=== PATIENT | female | born 1990 | race Hispanic/Latino ===

== ENCOUNTER 2022-03-05 12:27 | Emergency (ER) | payer OTHER ==
--- OUTSIDE RECORDS SUMMARY | 2022-03-05 12:37 | XMS REPORT | Continuity of Care Document ---
:1990 Author Organization [facility] t Address [address] [place] [address] Care Team Providers Name Role Phone PCP, PATIENT DOES NOT HAVE A Primary Care Physician Unavaila catrachito Pacheco_Jer Attending Clinician Unavailable Charlette_Mi Attending Clinician Unavailable Caryn GRAHAM, Anabel De La Cruz Attending Clinician Jaqueline Adame LVN Attending Clinician Unavailable Christine Noel Attending Clinician Deyanira Terry MD Attending Clinician Phuc BEARDEN, Daniela Whitaker Attending Clinician [phone] Johanna Murguia MD Attending Clinician AJAY CASSIDY Attending Clinician Unavailable Ajay Cassidy MD Attending Clinician Mary Grace Downing LVN Attending Clinician Unavailable Raheel Tripp MD Attending Clinician Leonel BEARDEN, Arianne Grande Attending Clinician [phone] Damian Montgomery MD Attending Clinician Beba Attending Clinician Unavailable CAROLINA QUEEN Attending Clinician Unavailable Arcelia Attending Clinician Unavailable Susana Admitting Clinician Unavailable Veronica Admitting Clinician Unavailable ANABEL ROLDAN Admitting Clinician Unavailable AJAY CASSIDY Admitting Clinician Unavailable JOHANNA MURGUIA Admitting Clinician Unavailable Beba Admitting Clinician Unavailable Arcelia Admitting Clinician Unavailable Payers Payer Name Policy Type Policy Number Effective Date Expiration Date Mi fisher [facility] [id number] 2020 (PPO) 00:00:00 [facility] [id number] 2021 00:00:00 [place] [id number] 2019 2020 00:00:00 00:00:00 Problems Condition Condition Condition Status Onset Resolution Last Treating Co mments Source Name Details Category Date Date Treatment Clinician Date Menorrhagi Menorrhagi Problem Active [facility] a a 8-17 Family 00:00: Practic 00 e Prediabete Prediabete Problem Active [facility] illage s s 6-04 Family 00:00: Practic 00 e Body mass Body Mass Problem Active Latanya domi index 40+ Index 40+ 6-04 Fami ly - severely - Severely 00:00: Pr actic obese Obese 00 e Hyperprola Hyperprola Problem Active [facility] ill[facility] ctinemia ctinemia 2-28 Family 00:00: Practic 00 e Vitamin D Vitamin D Problem Active Latanya domi deficiency Deficiency 2-28 Fa juanita 00:00: Practic 00 e Uterine Uterine Disease Active [facility] leiomyoma leiomyoma 05-12 st 00:00: Hospita 00 l Menorrhagi Menorrhagi Disease Active M ethodi a with a with 12-03 st regular regular 00:00: Hospita cycle cycle 00 l Hirsutism Hirsutism Disease Active Met hodi 12-03 00:00: Hospita 00 l Essential Essential Problem Active 2019-03 Latanya domi hypertensi Hypertensi 2-13 Fa juanita on on 00:00: Practic 00 e Anemia Anemia Problem Active [facility] Acid Acid Problem Active [facility] Allergies, Adverse Reactions, Alerts Allergy Allergy Status Severity Reaction(s) Onset Inactive Treating Comm ents Source Name Type Date Date Clinician Bandar Propensi Active Swelling 2019-03 Method i Natural ty to 03-27 st Rubber adverse 00:00: Hospita reaction 00 l s to drug LATEX, Allergy Active Rash [place] NATURAL to Family RUBBER substanc Practic e e NO KNOWN Drug Active Univers ALLERGIE Class ity of [facility] Family History Family Member Diagnosis Comments Start Date Stop Date Source Natural mother Cervical cancer [facility] Natural mother Diabetes [facility] Natural mother Hypertension [facility] Social History Social Habit Start Date Stop Date Quantity Comments Source Alcohol intake 2021-12-26 2021-12-26 Ex-drinker [facility] 00:00:00 00:00:00 (finding) Hospital Exposure to 2021-10-12 2021-10-22 Not sure [facility] SARS-CoV-2 00:00:00 04:03:00 [facility] (event) Branch Tobacco use and 2021-07-04 2021-07-04 Smokeless tobacco [facility] exposure 00:00:00 00:00:00 non-user Hospital Alcohol Comment 2021-07-04 2021-07-04 socially [facility] 00:00:00 00:00:00 Hospital History [facility] 2020-02-02 2020-02-02 2 [facility] Alcohol Frequency 00:00:00 00:00:00 Hospita l History [facility] 2020-02-02 2020-02-02 1 [facility] Alcohol Std 00:00:00 00:00:00 Hospital Drinks History [facility] 2020-02-02 2020-02-02 1 [facility] Alcohol Binge 00:00:00 00:00:00 Hospital Sex Ass[birth year] At [birth year] [facility] 00:00[facility] 00[facility]00[facility]00 [facility] Smoking Status Start Date Stop Date Source [facility] Medications Ordered Filled Start Stop Current Ordering Indication Dosage Frequency Signature Comments Components Source Medication Medication Date Date Medication? Clinician (SIG) Name Name ferrous 2021-0 202- No Q24H daily. [facility] sulfate 325 11-28 st (65 FE) MG 13:49: 00:00 Hospit a tablet 52 :00 l pedi Yes Take by [facility] multivit 9-[address] no.12 11:07: Hospita w-fluoride 08 l (MULTIVITAM INS-FLUORID E-FOLIC A ORAL) famotidine Yes 40mg Q.5D 40 mg 2 Meth felipe (PEPCID) 40 11-28 (two) st MG tablet 11:07: times a Hospi ta 08 day as l needed. cholecalcif Yes cholecalci [facility] jamie, 11-[address] vitamin D3, 11:07: (vitamin Ho spita 1,250 mcg 08 D3) 1,250 l (50,000 mcg unit) (50,000 capsule unit) capsule TAKE 1 CAPSULE BY MOUTH EVERY WEEK fexofenadin Yes 60mg QD Take 1 Meth felipe e (TANA) 11-28 tablet (60 st 60 MG 11:07: mg total) Hospita tablet 08 by mouth l daily. ondansetron 2021- No Metho di ODT 11-13-28 st (ZOFRAN-ODT 03:07: 00:00 Hospi ta ) 4 MG 18 :00 l disintegrat ing tablet medroxyPROG 2021- No 150mg Q90D Inject 1 [facility] ESTERone 11-13-28 mL ([address] (DEPO-PROVE 03:07: 00:00 total) Hos olivia RA) 150 18 :00 into the l mg/mL shoulder, injection thigh, or buttocks every 3 (three) months. meloxicam Yes [facility] (MOBIC) 15 11-13 st mg tablet 03:07: Hospita 15 l hydrocortis Yes Method i one 2.5 % 11-13 st cream 03:07: Hospita 15 l ibuprofen 2021- No 800mg Q6H Take 1 Meth felipe (ADVIL) 800 11-11-[address] MG tablet 00:00: 04:59 (800 mg Hosp jaida 00 :00 total) by l mouth every 6 (six) hours as needed for mild pain or moderate pain for up to 30 days. ondansetron 2021- No 8mg Q8H Take 1 Met hodi ODT 11-11 tablet (8 st (ZOFRAN-ODT 00:00: 04:59 mg total) Hospita ) 8 MG 00 :00 by mouth l disintegrat every 8 ing tablet (eight) hours as needed for nausea or vomiting for up to 30 days. oxyCODONE 2021- No [id number] 5mg Q4H Take 1 Meth felipe (Roxicodone 11-[address] ) 5 MG 00:00: 04:59 mouth Hospita immediate 00 :00 every 4 l release hours as tablet needed for moderate pain for up to 7 days. Max Daily Amount: 30 mg amoxicillin 2021- No 875mg Q12H Take 875 [facility] (AMOXIL) 11-07 08- mg by st 875 MG 15:39: 00:00 mouth Hospita tablet 06 :00 every 12 l (twelve) hours. drospirenon 2021- No 1{tbl} QD Take 1 M ethodi e-ethinyl 10-[address] estradioL 00:00: 00:00 mouth Hospit a (CLARITZA) 00 :00 daily. l 3-0.03 mg per tablet iopamidol 2021- No [id number] 60mL 60 mL, U nivers (ISOVUE 10-22 Intravenou ity o f 370-500 mL) 11:30: 11:30 s, ONCE, 1 [place] injection 00 :00 dose, On Medica l 60 mL 10/22/21 Branch at 0630, Routine FENTanyl PF No 50ug 50 mcg, Un shira (SUBLIMAZE 10-22 Slow IV ity o f (PF)) 11:15: 10:28 Push, [place] injection 00 :00 ONCE, 1 Medical 50 mcg dose, On Branch 10/22/21 at 0615, Routine ondansetron 2021- No 4mg 4 mg, Slow Univers (ZOFRAN 10-22 IV Push, ity of (PF)) 10:15: 10:28 ONCE, 1 [place] injection 4 00 :00 dose, On Medi mike mg 10/22/21 Branch at 0515, IZZY medroxyPROG 2021- No [id number] 150mg [facility] ESTERone 09-05 06-20 st (DEPO-PROVE 13:45: 13:33 Hospi ta RA) 00 :00 l injection 150 mg acetaminoph 2021- No 500mg Q6H Take 500 [facility] en 17 06-[address] (TYLENOL) 10:05: 00:00 mouth Hospit a 500 MG 06 :00 every 6 l tablet (six) hours as needed for mild pain. medroxyPROG 2021- No 150mg Q90D Inject 1 [facility] ESTERone 09-02 08-08 mL ([address] (DEPO-PROVE 00:00: 00:00 total) Hos olivia RA) 150 00 :00 into the l mg/mL shoulder, injection thigh, or buttocks every 3 (three) months. tranexamic 2021- No [id number] 1300mg Q.[id number] Take 2 [facility] acid 6-05 24-[id number] (Lysteda) 00:00: 00:00 3D (1,300 mg Ho spita 650 mg 00 :00 total) by l tablet mouth 3 tablet (three) times a day. For a maximum of 5 days starting on the first day of menses. tranexamic 2021- No [id number] 1300mg Q.[id number] Take 2 [facility] acid 5-05 22- [id number] tablets st (Lysteda) 00:00: 00:00 3D (1,300 mg Ho spita 650 mg 00 :00 total) by l tablet mouth 3 tablet (three) times a day. For a maximum of 5 days starting on the first day of menses. keTOROlac 2021- No 10mg Q.[id number] Take 10 mg [facility] (TORadol) 07-15- [id number] by mouth 3 st 10 mg 00:00: 00:00 3D (three) Hospita tablet 00 :00 times a l day. ibuprofen 2021- No 800mg Q8H Take 1 Meth felipe (ADVIL) 800 07-[address] MG tablet 00:00: 04:59 (800 mg Hosp jaida 00 :00 total) by l mouth every 8 (eight) hours as needed for moderate pain for up to 30 days. miSOPROStoL 2021- No Take all 4 [facility] (CYTOTEC) 4-19 04-[address] 100 MCG 00:00: 00:00 bedtime Hospit a tablet 00 :00 the night l before surgery triamcinolo Yes APPLY THIN [facility] ne 2-[address] (KENALOG) 00:00: TOPICALLY Hos olivia 0.1 % cream 00 TO THE l AFFECTED AREA TWICE DAILY cholecalcif Yes cholecalci [facility] jamie, 2-[address] vitamin D3, 10:54: (vitamin Ho spita 1,250 mcg 55 D3) 1,250 l (50,000 mcg unit) (50,000 capsule unit) capsule TAKE 1 CAPSULE BY MOUTH EVERY WEEK ondansetron Yes ondansetro [facility] ODT 2-[address] (ZOFRAN-ODT 10:54: disintegra Hospita ) 4 MG 54 ting l disintegrat tablet ing tablet DISSOLVE 1 TABLET ON TONGUE EVERY 4 HOURS NEEDED FORNAUSEA AND VOMITING meloxicam Yes meloxicam Met hodi (MOBIC) 15 2-[address] mg tablet 10:54: tablet Hospit a 54 TAKE 1 l TABLET BY MOUTH EVERY DAY hydrocortis Yes hydrocorti [facility] one 2.5 % 2-04 sone 2.5 % st cream 10:54: topical Hospita 54 cream l APPLY A THIN LAYER TO THE AFFECTED AREA TWICE DAILY ferrous 0 Yes Q24H daily. [facility] sulfate 325 2-04 st (65 FE) MG 10:54: Hospita tablet 54 l famotidine Yes famotidine M ethodi (PEPCID) 40 2-[address] MG tablet 10:54: tablet Hospit a 54 l tranexamic Yes [id number] 1300mg Q.[id number] Take 2 [facility] acid 9-[id number] (Lysteda) 00:00: 3D (1,300 mg Hos olivia 650 mg 00 total) by l tablet mouth 3 tablet (three) times a day. For a maximum of 5 days starting on the first day of menses. tranexamic 2021- No [id number] 1300mg Q.[id number] Take 2 [facility] acid 12-03 05-[id number] (Lysteda) 00:00: 00:00 3D (1,300 mg Ho spita 650 mg 00 :00 total) by l tablet mouth 3 tablet (three) times a day. For a maximum of 5 days starting on the first day of menses. spironolact 2020- No [id number] 50mg Q.5D Take 1 [facility] one 12-03 tablet (50 st (Aldactone) 00:00: 05:59 mg total) Hospita 50 MG 00 :00 by mouth 2 l tablet (two) times a day for 90 days. eflornithin 2020- No [id number] 1{appli Q.5D Apply 1 Method[facility] e (Vaniqa) 12-03 cation} applicatio st 13.9 % 00:00: 04:59 n Hospita cream 00 :00 topically l 2 (two) times a day with meals for 30 days. tranexamic 2020- No [id number] 1300mg Q.[id number] Take 2 [facility] acid 11-[id number] (Lysteda) 00:00: 00:00 3D (1,300 mg Ho spita 650 mg 00 :00 total) by l tablet mouth 3 tablet (three) times a day. For a maximum of 5 days starting on the first day of menses. lisinopriL- Yes 1{tbl} QD Take 1 Me thodi hydrochloro 6-[address] thiazide 00:00: mouth Hospita (PRINZIDE) 00 daily. l 10-12.5 mg per tablet lisinopriL- 2021- No 1{tbl} QD Take 1 M ethodi hydrochloro 6-22 09-[address] thiazide 00:00: 00:00 mouth Hospita (PRINZIDE) 00 :00 daily. l 10-12.5 mg per tablet pedi 2019-03 Yes Take by [facility] multivit 1-[address] no.12 08:57: Hospita w-fluoride 09 l (MULTIVITAM INS-FLUORID E-FOLIC A ORAL) tranexamic 2019-03- No [id number] 1300mg Q.[id number] Take 2 [facility] acid 04-03 08-[id number] (Lysteda) 00:00: 00:00 3D (1,300 mg Ho spita 650 mg 00 :00 total) by l tablet mouth 3 tablet (three) times a day. For a maximum of 5 days starting on the first day of menses. betamethaso betamethaso No betamethas [facility] ne ne one Family dipropionat dipropionat dipropiona Practic e 0.05 % e 0.05 % te 0.05 % e topical topical topical cream APPLY cream APPLY cream A THIN A THIN APPLY A LAYER TO LAYER TO THIN LAYER THE THE TO THE AFFECTED AFFECTED AFFECTED AREA TWICE AREA TWICE AREA TWICE DAILY FOR 2 DAILY FOR 2 DAILY FOR WEEKS/ WEEKS/ 2 WEEKS/ MONTH MONTH MONTH Depo-[employer] Advisor Depo-[employer]force [employer]ing Advisor No 1mL Depo-Prove [facility] a 150 mg/mL a 150 mg/mL ra 150 Family intramuscul intramuscul mg/mL Practic ar ar intramuscu e suspension suspension lar Inject 1 mL Inject 1 mL suspension every 3 every 3 Inject 1 months by months by mL every 3 intramuscul intramuscul months by ar route. ar route. intramuscu lar route. hydroxyzine hydroxyzine hydroxyzin [facility] HCl 25 mg HCl 25 mg e HCl 25 F amily tablet TAKE tablet TAKE mg tablet Practic 1 TABLET BY 1 TABLET BY TAKE 1 e MOUTH EVERY MOUTH EVERY TABLET BY DAY AT DAY AT MOUTH BEDTIME BEDTIME EVERY DAY AT BEDTIME lisinopril lisinopril No lisinopril [facility] 10 10 10 Family mg-hydrochl mg-hydrochl mg-hydroch Practic orothiazide orothiazide lorothiazi e 12.5 mg 12.5 mg de 12.5 mg tablet TAKE tablet TAKE tablet 1 TABLET BY 1 TABLET BY TAKE 1 MOUTH EVERY MOUTH EVERY TABLET BY DAY DAY MOUTH EVERY DAY Agnieszka 3 Agnieszka 3 No Agnieszka 3 Villag e mg-0.03 mg mg-0.03 mg mg-0.03 mg Family tablet tablet tablet Practic e triamcinolo triamcinolo No triamcinol [facility] ne ne one Family acetonide acetonide acetonide Practic 0.1 % 0.1 % 0.1 % e topical topical topical cream APPLY cream APPLY cream THIN LAYER THIN LAYER APPLY THIN TOPICALLY TOPICALLY LAYER TO THE TO THE TOPICALLY AFFECTED AFFECTED TO THE AREA TWICE AREA TWICE AFFECTED DAILY DAILY AREA TWICE DAILY betamethaso betamethaso No betamethas [facility] ne ne one Family dipropionat dipropionat dipropiona Practic e 0.05 % e 0.05 % te 0.05 % e topical topical topical cream APPLY cream APPLY cream A THIN A THIN APPLY A LAYER TO LAYER TO THIN LAYER THE THE TO THE AFFECTED AFFECTED AFFECTED AREA TWICE AREA TWICE AREA TWICE DAILY FOR 2 DAILY FOR 2 DAILY FOR WEEKS/ WEEKS/ 2 WEEKS/ MONTH MONTH MONTH hydroxyzine hydroxyzine No [facility] HCl 25 mg HCl 25 mg e HCl 25 F amily tablet TAKE tablet TAKE mg tablet Practic 1 TABLET BY 1 TABLET BY TAKE 1 e MOUTH EVERY MOUTH EVERY TABLET BY DAY AT DAY AT MOUTH BEDTIME BEDTIME EVERY DAY AT BEDTIME ibuprofen ibuprofen No ibuprofen [facility] 800 mg 800 mg 800 mg Family tablet tablet tablet Practic e lisinopril lisinopril No lisinopril [facility] 10 10 10 Family mg-hydrochl mg-hydrochl mg-hydroch Practic orothiazide orothiazide lorothiazi e 12.5 mg 12.5 mg de 12.5 mg tablet TAKE tablet TAKE tablet 1 TABLET BY 1 TABLET BY TAKE 1 MOUTH EVERY MOUTH EVERY TABLET BY DAY DAY MOUTH EVERY DAY ondansetron ondansetron No ondansetro [facility] 8 mg 8 mg n 8 mg Family disintegrat disintegrat disintegra Practic ing tablet ing tablet ting e tablet tramadol 50 tramadol 50 No 2 Q6H tramadol [facility] mg tablet mg tablet 50 mg Fami ly Take 2 Take 2 tablet Practic tablets tablets Take 2 e every 6 every 6 tablets hours by hours by every 6 oral route oral route hours by as needed. as needed. oral route as needed. triamcinolo triamcinolo No triamcinol [facility] ne ne one Family acetonide acetonide acetonide Practic 0.1 % 0.1 % 0.1 % e topical topical topical cream APPLY cream APPLY cream THIN LAYER THIN LAYER APPLY THIN TOPICALLY TOPICALLY LAYER TO THE TO THE TOPICALLY AFFECTED AFFECTED TO THE AREA TWICE AREA TWICE AFFECTED DAILY DAILY AREA TWICE DAILY hydroxyzine hydroxyzine No parnassus campuszin [facility] HCl 25 mg HCl 25 mg e HCl 25 F amily tablet TAKE tablet TAKE mg tablet Practic 1 TABLET BY 1 TABLET BY TAKE 1 e MOUTH EVERY MOUTH EVERY TABLET BY DAY AT DAY AT MOUTH BEDTIME BEDTIME EVERY DAY AT BEDTIME lisinopril lisinopril lisinopril [facility] 10 10 10 Family mg-hydrochl mg-hydrochl mg-hydroch Practic orothiazide orothiazide lorothiazi e 12.5 mg 12.5 mg de 12.5 mg tablet TAKE tablet TAKE tablet 1 TABLET BY 1 TABLET BY TAKE 1 MOUTH EVERY MOUTH EVERY TABLET BY DAY DAY MOUTH EVERY DAY metronidazo metronidazo No metronidaz [facility] le 0.75 % le 0.75 % ole 0.75 % Family lotion lotion lotion Practic APPLY THIN APPLY THIN APPLY THIN e LAYER LAYER LAYER TOPICALLY TOPICALLY TOPICALLY TO FACE TO FACE TO FACE TWICE DAILY TWICE DAILY TWICE DAILY naproxen naproxen No 1 BID naproxen Latanya domi 500 mg 500 mg 500 mg Family tablet Take tablet Take tablet Practic 1 tablet 1 tablet Take 1 e twice a day twice a day tablet by oral by oral twice a route as route as day by needed for needed for oral route 10 days. 10 days. as needed take with take with for 10 food food days. take with food sulfacetami sulfacetami No sulfacetam [facility] de de estefany Family sodium-sulf sodium-sulf sodium-sul Practic ur 10 %-5 % ur 10 %-5 % fur 10 %-5 e (w/w) (w/w) % (w/w) topical topical topical cleanser cleanser cleanser triamcinolo triamcinolo No triamcinol [facility] ne ne one Family acetonide acetonide acetonide Practic 0.1 % 0.1 % 0.1 % e topical topical topical cream APPLY cream APPLY cream THIN LAYER THIN LAYER APPLY THIN TOPICALLY TOPICALLY LAYER TO THE TO THE TOPICALLY AFFECTED AFFECTED TO THE AREA TWICE AREA TWICE AFFECTED DAILY DAILY AREA TWICE DAILY amoxicillin amoxicillin No 1 Q12H amoxicilli [facility] 875 mg 875 mg n 875 mg Family tablet Take tablet Take tablet Practic 1 tablet 1 tablet Take 1 e every 12 every 12 tablet hours by hours by every 12 oral route oral route hours by with meals with meals oral route for 10 for 10 with meals days. days. for 10 days. hydroxyzine hydroxyzine [facility] HCl 25 mg HCl 25 mg e HCl 25 F amily tablet TAKE tablet TAKE mg tablet Practic 1 TABLET BY 1 TABLET BY TAKE 1 e MOUTH EVERY MOUTH EVERY TABLET BY DAY AT DAY AT MOUTH BEDTIME BEDTIME EVERY DAY AT BEDTIME lisinopril lisinopril No lisinopril [facility] 10 10 10 Family mg-hydrochl mg-hydrochl mg-hydroch Practic orothiazide orothiazide lorothiazi e 12.5 mg 12.5 mg de 12.5 mg tablet TAKE tablet TAKE tablet 1 TABLET BY 1 TABLET BY TAKE 1 MOUTH EVERY MOUTH EVERY TABLET BY DAY DAY MOUTH EVERY DAY metronidazo metronidazo No metronidaz [facility] le 0.75 % le 0.75 % ole 0.75 % Family lotion lotion lotion Practic APPLY THIN APPLY THIN APPLY THIN e LAYER LAYER LAYER TOPICALLY TOPICALLY TOPICALLY TO FACE TO FACE TO FACE TWICE DAILY TWICE DAILY TWICE DAILY prednisone prednisone No 1 Q1D prednisone [facility] 20 mg 20 mg 20 mg Family tablet Take tablet Take tablet Practic 1 tablet 1 tablet Take 1 e every day every day tablet by oral by oral every day route with route with by oral meals for 5 meals for 5 route with days. days. meals for 5 days. sulfacetami sulfacetami No sulfacetam [facility] de de estefany Family sodium-sulf sodium-sulf sodium-sul Practic ur 10 %-5 % ur 10 %-5 % fur 10 %-5 e (w/w) (w/w) % (w/w) topical topical topical cleanser cleanser cleanser triamcinolo triamcinolo No triamcinol [facility] ne ne one Family acetonide acetonide acetonide Practic 0.1 % 0.1 % 0.1 % e topical topical topical cream APPLY cream APPLY cream THIN LAYER THIN LAYER APPLY THIN TOPICALLY TOPICALLY LAYER TO THE TO THE TOPICALLY AFFECTED AFFECTED TO THE AREA TWICE AREA TWICE AFFECTED DAILY DAILY AREA TWICE DAILY hydroxyzine hydroxyzine No hydroxyn [facility] HCl 25 mg HCl 25 mg e HCl 25 F amily tablet TAKE tablet TAKE mg tablet Practic 1 TABLET BY 1 TABLET BY TAKE 1 e MOUTH EVERY MOUTH EVERY TABLET BY DAY AT DAY AT MOUTH BEDTIME BEDTIME EVERY DAY AT BEDTIME lisinopril lisinopril No lisinopril [facility] 10 10 10 Family mg-hydrochl mg-hydrochl mg-hydroch Practic orothiazide orothiazide lorothiazi e 12.5 mg 12.5 mg de 12.5 mg tablet TAKE tablet TAKE tablet 1 TABLET BY 1 TABLET BY TAKE 1 MOUTH EVERY MOUTH EVERY TABLET BY DAY DAY MOUTH EVERY DAY metronidazo metronidazo No [facility] le 0.75 % le 0.75 % ole 0.75 % Family lotion lotion lotion Practic APPLY THIN APPLY THIN APPLY THIN e LAYER LAYER LAYER TOPICALLY TOPICALLY TOPICALLY TO FACE TO FACE TO FACE TWICE DAILY TWICE DAILY TWICE DAILY prednisone prednisone prednisone [facility] 20 mg 20 mg 20 mg Family tablet TAKE tablet TAKE tablet Practic 1 TABLET BY 1 TABLET BY TAKE 1 e MOUTH EVERY MOUTH EVERY TABLET BY DAY WITH DAY WITH MOUTH MEALS FOR 5 MEALS FOR 5 EVERY DAY DAYS DAYS WITH MEALS FOR 5 DAYS triamcinolo triamcinolo No triamcinol [facility] ne ne one Family acetonide acetonide acetonide Practic 0.1 % 0.1 % 0.1 % e topical topical topical cream APPLY cream APPLY cream THIN LAYER THIN LAYER APPLY THIN TOPICALLY TOPICALLY LAYER TO THE TO THE TOPICALLY AFFECTED AFFECTED TO THE AREA TWICE AREA TWICE AFFECTED DAILY DAILY AREA TWICE DAILY amoxicillin amoxicillin No amoxicilli [facility] [phone] Family mg-potassiu mg-potassiu mg-potassi Practic m m um e clavulanate clavulanate clavulanat 125 mg 125 mg e 125 mg tablet TAKE tablet TAKE tablet 1 TABLET BY 1 TABLET BY TAKE 1 MOUTH EVERY MOUTH EVERY TABLET BY 12 HOURS 12 HOURS MOUTH FOR 7 DAYS FOR 7 DAYS EVERY 12 HOURS FOR 7 DAYS hydroxyzine hydroxyzine No hydroxyzin [facility] HCl 25 mg HCl 25 mg e HCl 25 F amily tablet TAKE tablet TAKE mg tablet Practic 1 TABLET BY 1 TABLET BY TAKE 1 e MOUTH EVERY MOUTH EVERY TABLET BY DAY AT DAY AT MOUTH BEDTIME BEDTIME EVERY DAY AT BEDTIME lisinopril lisinopril No lisinopril [facility] 10 10 10 Family mg-hydrochl mg-hydrochl mg-hydroch Practic orothiazide orothiazide lorothiazi e 12.5 mg 12.5 mg de 12.5 mg tablet TAKE tablet TAKE tablet 1 TABLET BY 1 TABLET BY TAKE 1 MOUTH EVERY MOUTH EVERY TABLET BY DAY DAY MOUTH EVERY DAY metronidazo metronidazo [facility] le 0.75 % le 0.75 % ole 0.75 % Family lotion lotion lotion Practic APPLY THIN APPLY THIN APPLY THIN e LAYER LAYER LAYER TOPICALLY TOPICALLY TOPICALLY TO FACE TO FACE TO FACE TWICE DAILY TWICE DAILY TWICE DAILY promethazin promethazin No 10mL TID promethazi [facility] e-DM 6.25 e-DM 6.25 ne-DM 6.25 Family mg-15 mg/5 mg-15 mg/5 mg-15 mg/5 Practic mL oral mL oral mL oral e syrup Take syrup Take syrup Take 10 mL 3 10 mL 3 10 mL 3 times a day times a day times a by oral by oral day by route as route as oral route needed for needed for as needed 10 days. 10 days. for 10 days. triamcinolo triamcinolo No triamcinol [facility] ne ne one Family acetonide acetonide acetonide Practic 0.1 % 0.1 % 0.1 % e topical topical topical cream APPLY cream APPLY cream THIN LAYER THIN LAYER APPLY THIN TOPICALLY TOPICALLY LAYER TO THE TO THE TOPICALLY AFFECTED AFFECTED TO THE AREA TWICE AREA TWICE AFFECTED DAILY DAILY AREA TWICE DAILY Immunizations Ordered Immunization Filled Immunization Date Status Commen Source Name Name influenza, influenza, 2022-01-21 Completed [facility] injectable, injectable, 15:42:00 Practice quadrivalent, quadrivalent, preservative free preservative free influenza, influenza, 2022-01-21 Completed [facility] injectable, injectable, 15:42:00 Practice quadrivalent, quadrivalent, preservative free preservative free influenza, influenza, 2022-01-21 Completed [facility] injectable, injectable, 15:42:00 Practice quadrivalent, quadrivalent, preservative free preservative free influenza, influenza, 2022-01-21 Completed [facility] injectable, injectable, 15:42:00 Practice quadrivalent, quadrivalent, preservative free preservative free MODERNA COVID-19 2021-04-01 Completed [facility]:00:00 Hospital MODERNA COVID-19 2021-03-04 Completed [facility] 00:00:00 Hospital COVID-19 COVID-19 2021-03-04 Completed [facility] (SARS-COV-2) (SARS-COV-2) 00:00:00 Practice vaccine, unspecified vaccine, unspecified COVID-19 COVID-19 2021-03-04 Completed [facility] (SARS-COV-2) (SARS-COV-2) 00:00:00 Practice vaccine, unspecified vaccine, unspecified COVID-19 COVID-19 2021-03-04 Completed [facility] (SARS-COV-2) (SARS-COV-2) 00:00:00 Practice vaccine, unspecified vaccine, unspecified COVID-19 COVID-19 2021-03-04 Completed [facility] (SARS-COV-2) (SARS-COV-2) 00:00:00 Practice vaccine, unspecified vaccine, unspecified COVID-19 COVID-19 2021-03-04 Completed [facility] (SARS-COV-2) (SARS-COV-2) 00:00:00 Practice vaccine, unspecified vaccine, unspecified COVID-19 COVID-19 2021-03-04 Completed [facility] (SARS-COV-2) (SARS-COV-2) 00:00:00 Practice vaccine, unspecified vaccine, unspecified influenza, influenza, 2021-02-25 Completed [facility] injectable, injectable, 13:12:00 Practice quadrivalent, quadrivalent, preservative free preservative free Tdap Tdap 2021-02-25 Completed [facility] 13:12:00 Practice influenza, influenza, 2021-02-25 Completed [facility] injectable, injectable, 13:12:00 Practice quadrivalent, quadrivalent, preservative free preservative free Tdap Tdap 2021-02-25 Completed [facility] 13:12:00 Practice influenza, influenza, 2021-02-25 Completed [facility] injectable, injectable, 13:12:00 Practice quadrivalent, quadrivalent, preservative free preservative free Tdap Tdap 2021-02-25 Completed [facility] 13:12:00 Practice influenza, influenza, 2021-02-25 Completed [facility] injectable, injectable, 13:12:00 Practice quadrivalent, quadrivalent, preservative free preservative free Tdap Tdap 2021-02-25 Completed [facility] 13:12:00 Practice influenza, influenza, 2021-02-25 Completed [facility] injectable, injectable, 13:12:00 Practice quadrivalent, quadrivalent, preservative free preservative free Tdap Tdap 2021-02-25 Completed [facility] 13:12:00 Practice influenza, influenza, 2021-02-25 Completed [facility] injectable, injectable, 13:12:00 Practice quadrivalent, quadrivalent, preservative free preservative free Tdap Tdap 2021-02-25 Completed [facility] 13:12:00 Practice influenza, influenza, 2009-03-19 Completed [facility] injectable, injectable, 00:00:00 Practice quadrivalent quadrivalent influenza, influenza, 2009-03-19 Completed [facility] injectable, injectable, 00:00:00 Practice quadrivalent quadrivalent influenza, influenza, 2009-03-19 Completed [facility] injectable, injectable, 00:00:00 Practice quadrivalent quadrivalent influenza, influenza, 2009-03-19 Completed [facility] injectable, injectable, 00:00:00 Practice quadrivalent quadrivalent influenza, influenza, 2009-03-19 Completed [facility] injectable, injectable, 00:00:00 Practice quadrivalent quadrivalent influenza, influenza, 2009-03-19 Completed [facility] injectable, injectable, 00:00:00 Practice quadrivalent quadrivalent Vital Signs Vital Name Observation Time Observation Value Comments Source BP Diastolic 2022-03-03 00:00:00 81 mm[Hg] [facility] Practice Height 2022-03-03 00:00:00 65 [in_i] [facility] BMI (Body Mass 2022-03-03 00:00:00 45.2 kg/m2 [facility] BP Systolic 2022-03-03 00:00:00 137 mm[Hg] [facility] Body Weight 2022-03-03 00:00:00 271.4 [lb_av] [facility] Height 2022-02-24 00:00:00 65 [in_i] [facility] BMI (Body Mass 2022-02-24 00:00:00 44.6 kg/m2 [facility] Body Weight 2022-02-24 00:00:00 268 [lb_av] [facility] BP Diastolic 2022-02-14 00:00:00 87 mm[Hg] [facility] Height 2022-02-14 00:00:00 65 [in_i] [facility] BMI (Body Mass 2022-02-14 00:00:00 44.1 kg/m2 [facility] BP Systolic 2022-02-14 00:00:00 137 mm[Hg] [facility] Body Weight 2022-02-14 00:00:00 265 [lb_av] [facility] BP Diastolic 2022-01-21 00:00:00 87 mm[Hg] [facility] Height 2022-01-21 00:00:00 65 [in_i] [facility] BMI (Body Mass 2022-01-21 00:00:00 44.9 kg/m2 [facility] BP Systolic 2022-01-21 00:00:00 137 mm[Hg] [facility] Body Weight 2022-01-21 00:00:00 270 [lb_av] [facility] BP Diastolic 2021-12-20 00:00:00 104 mm[Hg] [facility] Height 2021-12-20 00:00:00 65 [in_i] [facility] BMI (Body Mass 2021-12-20 00:00:00 43.3 kg/m2 [facility] BP Systolic 2021-12-20 00:00:00 139 mm[Hg] [facility] Body Weight 2021-12-20 00:00:00 260 [lb_av] [facility] BP Diastolic 2021-11-02 00:00:00 86 mm[Hg] [facility] Height 2021-11-02 00:00:00 65 [in_i] [facility] BMI (Body Mass 2021-11-02 00:00:00 44 kg/m2 [facility] BP Systolic 2021-11-02 00:00:00 130 mm[Hg] [facility] Body Weight 2021-11-02 00:00:00 264.2 [lb_av] [facility] Systolic blood 2021-10-22 11:00:00 168 mm[Hg] [facility]iver [facility] of pressure [facility] Diastolic blood 2021-10-22 11:00:00 116 mm[Hg] Unive rsity of [facility] Heart rate 2021-10-22 11:00:00 68 /min [facility] Respiratory rate 2021-10-22 11:00:00 15 /min [facility] Oxygen saturation in 2021-10-22 11:00:00 96 /min [facility] Arterial blood by [facility] Pulse oximetry Branch Body temperature 2021-10-22 09:05:00 36.44 Staci [facility] 2021-10-22 09:05:00 165.1 cm [facility] Body weight 2021-10-22 09:05:00 120.203 kg [facility] BMI 2021-10-22 09:05:00 44.10 kg/m2 [facility] BP Diastolic 2021 00:00:00 91 mm[Hg] [facility] Height 2021 00:00:00 65 [in_i] [facility] BMI (Body Mass 2021 00:00:00 44.7 kg/m2 [facility] BP Systolic 2021 00:00:00 129 mm[Hg] [facility] Body Weight 2021 00:00:00 268.6 [lb_av] [facility] BP Diastolic 2021-10-01 00:00:00 91 mm[Hg] [facility] Height 2021-10-01 00:00:00 65 [in_i] [facility] BMI (Body Mass 2021-10-01 00:00:00 44.3 kg/m2 [facility] BP Systolic 2021-10-01 00:00:00 135 mm[Hg] [facility] Body Weight 2021-10-01 00:00:00 266 [lb_av] [facility] BP Diastolic 2021-09-24 00:00:00 89 mm[Hg] [facility] Height 2021-09-24 00:00:00 65 [in_i] [facility] BMI (Body Mass 2021-09-24 00:00:00 44 kg/m2 [facility] BP Systolic 2021-09-24 00:00:00 126 mm[Hg] [facility] Body Weight 2021-09-24 00:00:00 264.2 [lb_av] [facility] BP Diastolic 2021-08-20 00:00:00 84 mm[Hg] [facility] Height 2021-08-20 00:00:00 65 [in_i] [facility] BMI (Body Mass 2021-08-20 00:00:00 44.9 kg/m2 [facility] BP Systolic 2021-08-20 00:00:00 119 mm[Hg] [facility] Body Weight 2021-08-20 00:00:00 270 [lb_av] [facility] Height 2021-07-15 00:00:00 65 [in_i] [facility] BMI (Body Mass 2021-07-15 00:00:00 44.1 kg/m2 [facility] Body Weight 2021-07-15 00:00:00 265 [lb_av] [facility] BP Diastolic 2021-06-16 00:00:00 82 mm[Hg] [facility] Height 2021-06-16 00:00:00 65 [in_i] [facility] BMI (Body Mass 2021-06-16 00:00:00 44.4 kg/m2 [facility] BP Systolic 2021-06-16 00:00:00 132 mm[Hg] [facility] Body Weight 2021-06-16 00:00:00 267 [lb_av] [facility] Height 2021-05-02 00:00:00 65 [in_i] [facility] BMI (Body Mass 2021-05-02 00:00:00 41.6 kg/m2 [facility] Body Weight 2021-05-02 00:00:00 250 [lb_av] [facility] BP Diastolic 2021-03-16 00:00:00 85 mm[Hg] [facility] Height 2021-03-16 00:00:00 65 [in_i] [facility] BMI (Body Mass 2021-03-16 00:00:00 41.6 kg/m2 [facility] BP Systolic 2021-03-16 00:00:00 140 mm[Hg] [facility] Body Weight 2021-03-16 00:00:00 250 [lb_av] [facility] BP Diastolic 2021-03-15 00:00:00 86 mm[Hg] [facility] Height 2021-03-15 00:00:00 65 [in_i] [facility] BMI (Body Mass 2021-03-15 00:00:00 41.6 kg/m2 [facility] BP Systolic 2021-03-15 00:00:00 142 mm[Hg] [facility] Body Weight 2021-03-15 00:00:00 250 [lb_av] [facility] BP Diastolic 2021-02-25 00:00:00 75 mm[Hg] [facility] Height 2021-02-25 00:00:00 65 [in_i] [facility] BMI (Body Mass 2021-02-25 00:00:00 41.8 kg/m2 [facility] BP Systolic 2021-02-25 00:00:00 137 mm[Hg] [facility] Body Weight 2021-02-25 00:00:00 251 [lb_av] [facility] Height 2020-11-09 00:00:00 65 [in_i] [facility] BMI (Body Mass 2020-11-09 00:00:00 41.6 kg/m2 [facility] Body Weight 2020-11-09 00:00:00 250 [lb_av] [facility] Height 2020-11-04 00:00:00 65 [in_i] [facility] BMI (Body Mass 2020-11-04 00:00:00 41.6 kg/m2 [facility] Body Weight 2020-11-04 00:00:00 250 [lb_av] [facility] BP Diastolic 2020-09-21 00:00:00 80 mm[Hg] [facility] Height 2020-09-21 00:00:00 65 [in_i] [facility] BMI (Body Mass 2020-09-21 00:00:00 44.4 kg/m2 [facility] BP Systolic 2020-09-21 00:00:00 120 mm[Hg] [facility] Body Weight 2020-09-21 00:00:00 267 [lb_av] [facility] Height 2020-09-11 00:00:00 65 [in_i] [facility] BMI (Body Mass 2020-09-11 00:00:00 39.9 kg/m2 [facility] Body Weight 2020-09-11 00:00:00 240 [lb_av] [facility] Height 2020-09-07 00:00:00 65 [in_i] [facility] BMI (Body Mass 2020-09-07 00:00:00 39.9 kg/m2 [facility] Body Weight 2020-09-07 00:00:00 240 [lb_av] [facility] BP Diastolic 2020-06-02 00:00:00 82 mm[Hg] [facility] Height 2020-06-02 00:00:00 65 [in_i] [facility] BMI (Body Mass 2020-06-02 00:00:00 39.9 kg/m2 [facility] BP Systolic 2020-06-02 00:00:00 130 mm[Hg] [facility] Body Weight 2020-06-02 00:00:00 240 [lb_av] [facility] BP Diastolic 2020-03-29 00:00:00 86 mm[Hg] [facility] Height 2020-03-29 00:00:00 65 [in_i] [facility] BMI (Body Mass 2020-03-29 00:00:00 42.5 kg/m2 [facility] BP Systolic 2020-03-29 00:00:00 134 mm[Hg] [facility] Body Weight 2020-03-29 00:00:00 255.6 [lb_av] [facility] BP Diastolic 2020-03-03 00:00:00 86 mm[Hg] [facility] Height 2020-03-03 00:00:00 65 [in_i] [facility] BMI (Body Mass 2020-03-03 00:00:00 42.4 kg/m2 [facility] BP Systolic 2020-03-03 00:00:00 120 mm[Hg] [facility] Body Weight 2020-03-03 00:00:00 255 [lb_av] [facility] Height 2020-03-01 00:00:00 65 [in_i] [facility] BP Diastolic 2020-02-29 00:00:00 87 mm[Hg] [facility] Height 2020-02-29 00:00:00 65 [in_i] [facility] BMI (Body Mass 2020-02-29 00:00:00 42.6 kg/m2 [facility] BP Systolic 2020-02-29 00:00:00 128 mm[Hg] [facility] Body Weight 2020-02-29 00:00:00 256 [lb_av] [facility] BP Diastolic 2020-02-07 00:00:00 129 mm[Hg] [facility] Height 2020-02-07 00:00:00 65 [in_i] [facility] BMI (Body Mass 2020-02-07 00:00:00 41.6 kg/m2 [facility] BP Systolic 2020-02-07 00:00:00 207 mm[Hg] [facility] Practice Body Weight 2020-02-07 00:00:00 250 [lb_av] [facility] Systolic blood 2021-12-26 15:54:00 132 mm[Hg] [facility] Diastolic blood 2021-12-26 15:54:00 92 mm[facility]Hg[facility] Heart rate 2021-12-26 15:54:00 96 /min [facility] Body height 2021-12-26 15:54:00 165.1 cm [facility] Body weight 2021-12-26 15:54:00 120.203 kg [facility] BMI 2021-12-26 15:54:00 44.10 kg/m2 [facility] Respiratory rate 2021-11-11 23:50:00 25 /min [facility] Oxygen saturation in 2021-11-11 23:50:00 97 /min [facility] Arterial blood by Pulse oximetry Body temperature 2021-11-11 21:33:00 36.61 Staci [facility] Systolic blood 2021-04-22 16:51:00 132 mm[Hg] [facility] pressure Diastolic blood 2021-04-22 16:51:00 88 mm[Hg] [facility] Heart rate 2021-04-22 16:51:00 88 /min [facility] Body height 2021-04-22 16:51:00 165.1 cm [facility] Body weight 2021-04-22 16:51:00 117.482 kg [facility] BMI 2021-04-22 16:51:00 43.10 kg/m2 [facility] Body temperature 2020-07-21 21:35:00 36.17 Staci [facility] Respiratory rate 2020-07-21 21:35:00 16 /min [facility] Oxygen saturation in 2020-07-21 21:35:00 99 /min [facility] Arterial blood by Pulse oximetry Procedures Procedure Date / Time Performing Clinician Source Performed MRI, brain + pituitary, 2021-12-27 00:00:00 [facility]wo contrast Practice MRI, brain, w/ contrast 2021-12-20 00:00:00 [facility] URINE CULTURE 2021-11-28 16:45:00 [facility] 2021-11-14 14:10:00 RoldanAnabel mendiola Edna [facility] MO AN ELECTIVE ENDOTRACHEAL 2021-11-11 17:10:00 [facility] AIRWAY HYSTERECTOMY, ABDOMINAL, 2021-11-11 16:59:00 Anabel Roldan I. [facility] LAPAROSCOPIC, ROBOT-ASSISTED HC NERVE BLOCK TAP BLOCK 2021-11-11 16:55:03 [facility] BILAT INJECTION ABO AND RH CONFIRMATION BY 2021-11-11 15:40:00 [facility] PROTOCOL Hysterectomy (Partial) 2021-11-11 00:00:00 [facility] COVID-19 QUALITATIVE RT-PCR 2021-11-09 18:55:00 [facility]. [facility] BASIC METABOLIC PANEL 2021-11-09 18:55:[address] [facility] HEMOGLOBIN A1C 2021-11-09 18:55:00 [facility] HCG QUALITATIVE, SERUM 2021-11-09 18:55:[address] [address] [facility] SCREEN CBC HEMOGRAM 2021-11-09 18:55:00 Anabel Roldan I. [facility] ospital HIV 1, 2 ANTIBODY 2021-11-09 18:55:00 [facility] SYPHILIS TREPONEMA SCREEN 2021-11-09 18:55:00 RoldanAnabel I. [facility] WITH RPR CONFIRMATION (REVERSE ALGORITHM) HEPATITIS ACUTE PANEL 2021-11-09 18:55:00 Anabel Roldan I. [facility] TYPE AND SCREEN 2021-11-09 18:55:00 Anabel Roldan I. [facility]ital ESTIMATED GFR 2021-11-09 18:55:00 Scout [facility] Morteza electrocardiogram 2021-11-02 00:00:00 [facility] ABDOMEN PELVIS W 2021-10-22 10:26:48 Ajay Cassidy [facility] CONTRAST [facility] CBC WITH DIFF 2021-10-22 09:34:00 Ajay Cassidy [facility] POCT TEST 2021-10-22 09:11:00 Ajay Cassidy [facility] LIPASE 2021-10-22 09:10:00 Ajay Cassidy [facility] COMP. METABOLIC PANEL 2021-10-22 09:10:00 Ajay Cassidy [facility] ([id number]) [facility] URINALYSIS 2021-10-22 09:10:00 Aajy Cassidy [facility] NOTICE OF PRIVACY PRACTICES 2021-10-22 09:02:23 Doctor Carlie carroll, [facility] [place] [facility] CONSENT/REFUSAL FOR 2021-10-22 08:51:54 Doctor Jerson [facility] DIAGNOSIS AND TREATMENT [place] [facility] POC , URINE 2021-09-05 13:33:00 [facility] TRANSVAGINAL 2021-08-23 13:02:39 [facility] POC , URINE 2021-07-19 20:06:00 Gifford [facility] MO INSERT INTRAUTERINE 2021-07-19 19:53:[address] [facility] DEVICE US PELVIC TRANSVAGINAL 2021-07-11 21:17:21 [facility] SURGICAL PATHOLOGY REQUEST 2021-07-07 19:14:00 [facility] AN ELECTIVE SUPRAGLOTTIC 2021-07-07 15:30:00 Edna Enrique [facility] AIRWAY HYSTEROSCOPY, WITH DILATION 2021-07-07 15:22:00 GiffordJohanna [facility] AND CURETTAGE OF UTERUS ECG 12-LEAD 2021-07-07 13:29:50 Scout Cartagena [facility] CBC WITH PLATELET AND 2021-07-05 18:10:00 [facility] DIFFERENTIAL [facility] BASIC METABOLIC PANEL 2021-07-05 18:10:00 [facility] HEMOGLOBIN A1C 2021-07-05 18:10:00 [facility] Felipe HCG QUALITATIVE, SERUM 2021-07-05 18:10:00 [facility] Osiel [facility] SCREEN [facility] ESTIMATED GFR 2021-07-05 18:10:00 [facility] MRI, pituitary, w/wo 2021-05-16 00:00:00 [facility] Practice US PELVIC TRANSVAGINAL 2021-05-12 19:21:57 Johanna Murguia [facility] PROLACTIN LEVEL 2021-05-03 14:12:[address] [facility]BDOMEN PELVIS W 2021-05-03 00:00:00 Damian Montgomery [facility] CONTRAST FOLLICLE STIMULATING 2021-04-22 17:11:00 Johanna Murguia [facility] HORMONE LUTEINIZING HORMONE 2021-04-22 17:11:00 [facility] THYROID STIMULATING HORMONE 2021-04-22 17:11:00 [facility] 2021-04-22 17:11:00 [facility] CBC HEMOGRAM 2021-04-22 17:11:00 [facility] HPV DETECTION W/RLFX TO HPV 2020-12-03 16:00:00 [facility] NOE 16,18 & 45 ON HIGH-RISK electrocardiogram 2020-09-21 00:00:00 [facility] Practice CBC WITH PLATELET AND 2020-07-21 20:13:00 Anabelle Brian [facility] DIFFERENTIAL ESTIMATED GFR 2020-07-21 20:13:00 Anabelle Brian [facility] MANUAL DIFFERENTIAL 2020-07-21 20:13:00 Anabelle Brian [facility] COMPREHENSIVE METABOLIC 2020-07-21 20:13:00 Anabelle Brian [facility] PANEL HCG QUALITATIVE, SERUM 2020-07-21 20:13:00 Anabelle Brian [facility] SCREEN X-RAY OF SACRUM & COCCYX 2 2020-03-29 00:00:00 [facility] XR, hip + pelvis, bilateral 2020-03-29 00:00:00 [facility] Practice electrocardiogram 2020-02-29 00:00:00 [facility] Practice US, PELVIC COMPLETE 2019-07-14 00:00:00 [facility] Appendectomy 2010-03-19 00:00:00 [facility] Hongi ly [facility] Plan of Care Planned Activity Planned Date Details Comments Source Future Scheduled Test 2022-03-05 COVID-19 VACCINE ([address] [place] [address] 11:33:14 - Booster for Moderna series) [code = COVID-19 VACCINE (3 - Booster for Moderna series)] Future Scheduled Test 2022-03-05 [facility] 11:33:14 malignant neoplasm of cervix (procedure) [code = 324494233] Diagnostic Test 2022-03-03 rapid influenza [facility] Pending 00:00:00 virus A + B and SARS Practic e CoV + SARS CoV 2 Ag panel, [place], upper respiratory specimen [code = rapid influenza virus A + B and SARS CoV + SARS CoV 2 Ag panel, [place], upper respiratory specimen] Diagnostic Test 2022-03-03 rapid strep group A, [facility] Pending 00:00:00 throat [code = rapid Practic e strep group A, throat] Future Scheduled Test 2021-04-25 Hepatitis C Method [facility] 01:12:59 screening (procedure) [code = 298040435] Future Scheduled Test 2021-04-25 COVID-19 VACCINE ([address] [place] [address] 01:12:59 - Booster for Moderna series) [code = COVID-19 VACCINE (3 - Booster for Moderna series)] Future Scheduled Test 2021-04-25 [facility] 01:12:59 malignant neoplasm of cervix (procedure) [code = 095510777] Future Appointment 2023-02-25 Ashley Pacheco, [address] [facility] Family 00:00:00 Celestina Ridley; [address], [place] [address] Future Appointment 2022-03-10 Venecia Polo, [address] [facility] 00:00:00 [facility] ; [address], [place] [address] Instructions [facility] Encounters Start End Encounter Admission Attending Care Care Encounter Source Date/Time Date/Time Type Type Clinicians Facility Department ID 2022-03-03 2022-03-03 Outpatient Reddy_M VFP VFP [id number] [facility] 00:00:00 00:00:00 [id number] Family Practic e 2022-03-03 2022-03-03 Venecia VFP [place] - [id number] [facility] 00:00:00 00:00:00 SULEIMAN Polo: [address] [place] - e d , VM[address]HOU[address], [facility] ([facility] [place] [address] , Ph. 2022-02-24 2022-02-24 Outpatient Reddy_M VFP VFP [id number]- [facility] 00:00:00 00:00:00 [id number] Family Practic e 2022-02-24 2022-02-24 Outpatient Jaswani_S VFP VFP [id number] [facility] 00:00:00 00:00:00 [id number] Family Practic e 2022-02-24 2022-02-24 Ashley VFP [place] - [id number] V illage 00:00:00 00:00:00 MD Junior: [facility] [address] [facility] [address], VM_HOU_Jey [facility] [address] , Ph. 2022-02-14 2022-02-14 Outpatient Jaswani_S VFP VFP [id number] [facility] 00:00:00 00:00:00 [id number] Family Practic e 2022-02-14 2022-02-14 Outpatient Jaswani_S VFP VFP [id number] [facility] 00:00:00 00:00:00 [id number] Family Practic e 2022-02-14 2022-02-14 Venecia VFP [place] - [id number] V illage 00:00:00 00:00:00 SULEIMAN Polo: [address] [place] - e d , VM[address]KAVITH[address]. [address], [facility] ([place]) [place] [address] , Ph. 2022-01-21 2022-01-21 Outpatient Jaswani_S VFP [facility] [id number] [facility] 00:00:00 00:00:00 Family 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 d , [address], ([facility]) [facility] [place] [address] , Ph. 2022-01-20 2022-01-20 Outpatient Jaswani_S VFP [facility] [address] [facility] 00:00:00 00:00:00 [facility] e 2021-12-26 2021-12-26 Office Roldan, .2.840.1 [id number] 4931 Methodi 10:45:00 11:18:19 Visit Anabel De La Cruz 44705.1.[address] 3.430.2.7 Hospit a .3.412151 l .8 2021-12-26 2021-12-26 Outpatient [facility] [id number] [address] [place] 00:00:00 00:00:00 ANABEL [address] 2021-12-26 2021-12-26 Travel 1.2.840.1 1.2.273.084 5692 336688 Methodi 00:00:00 00:00:[address] 3.430.2.7 0.2.7.3.698 Ho spita .3.449736 084.8 l .8 2021-12-20 2021-12-20 Outpatient Jaswani_S VFP [facility] 8[address]52 [facility] 00:00:00 00:00:00 Family [facility] e 2021-12-20 2021-12-20 Mary [facility] [place] - [id number] [place] [facility] 00:00:00 00:00:00 Dary Reyna MD: Medical - [facility] [address] [place] - e [facility] VM_HOU_N. d , [address], ([facility]) [place] [address] , Ph. 2021-11-28 2021-11-28 Office [facility], 1.2.840.1 [id number] 4597 Methodi 11:00:00 11:29:57 Visit Anabel De La Cruz 14351.1.[address] 3.430.2.7 Hospit a .3.116508 l .8 2021-11-28 2021-11-28 Outpatient [facility] [id number] [address] [place] 00:00:00 00:00:00 ANABEL [address] 2021-11-28 2021-11-28 Travel 1.2.840.1 1.2.999.374 0268 162230 Methodi 00:00:00 00:00:[address] 3.430.2.7 0.2.7.3.698 Ho spita .3.843395 084.8 l .8 2021-11-14 2021-11-14 Telephone Orsak, 1.2.840.1 [id number] 2100 895548 Methodi 00:00:00 00:00:[address] 3.430.2.7 Hospit a .3.052173 l .8 2021-11-12 2021-11-12 Telephone Sadie, 1.2.840.1 [id number] 2100 651410 Methodi 00:00:00 00:00:[address] [place] 3.430.2.7 Hospit a .3.777045 l .8 2021-11-11 2021-11-11 Hospital [facility], 1.2.840.1 [id number] 27694 19807 Methodi 09:24:00 23:59:00 Encounter Anabel De La Cruz 23130.1.1 752 s t 3.430.2.7 Hospit a .3.349326 l .8 2021-11-11 2021-11-11 Anesthesia Deyanira Terry 1.2.840.1 104 534670 [id number] Methodi 11:59:00 16:22:00 Event Daniela Friend 39908.1.[address] 3.430.2.7 Hospit a .3.912430 l .8 2021-11-11 2021-11-11 Surgery Roldan, 1.2.840.1 [id number] 1878 Methodi 11:35:00 15:45:00 Anabel De La Cruz 82089.1.[address] 3.430.2.7 Hospit a .3.542551 l .8 2021-11-11 2021-11-11 Outpatient [place] [address] [id number] 934 [place] 00:00:00 00:00:00 ANABEL [address] 2021-11-11 2021-11-11 Travel 1.2.840.1 1.2.792.554 0693 787606 Methodi 00:00:00 00:00:[address] 3.430.2.7 0.2.7.3.698 Ho spita .3.187619 084.8 l .8 2021-11-10 2021-11-10 Prep for Roldan, 1.2.840.1 [id number] 87678 02106 Methodi 00:00:00 00:00:00 Surgery Anabel De La Cruz 37376.1.[address] 3.430.2.7 Hospit a .3.619611 l .8 2021-11-09 2021-11-09 Pre-Admiss Roldan, 1.2.840.1 [id number] 326 2235567 Methodi 13:30:00 14:30:00 ion Anabel De La Cruz 45190.1.[address] Testing 3.430.2.7 Hospit a .3.191328 l .8 2021-11-09 2021-11-09 Outpatient [facility] [id number] 9[address] [place] 00:00:00 00:00:00 ANABEL [address] 2021-11-09 2021-11-09 Travel 1.2.840.1 1.2.243.184 5953 288627 Methodi 00:00:00 00:00:[address] 3.430.2.7 0.2.7.3.698 Ho spita .3.032745 084.8 l .8 2021-11-07 2021-11-07 Travel 1.2.840.1 1.2.505.355 4499 733290 Methodi 00:00:00 00:00:[address] 3.430.2.7 0.2.7.3.698 Ho spita .3.265354 084.8 l .8 2021-11-02 2021-11-02 Brock Ovalles_[place] [facility] [place] - [address] [facility] 00:00:00 00:00:00 [place] [address] Famil y MD: 97072 Medical - Prac tic Hermes LIEBERMAN_FÉLIX_Brittney e [place] a Ranjosé Perez, [place] [address] , Ph. 2021-11-01 2021-11-01 Outpatient Reddy_M VFP [facility] [id number] [facility] 00:00:00 00:00:00 04712 Family Practic e 2021-10-26 2021-10-26 Outpatient Reddy_M VFP [facility] [id number] [facility] 00:00:00 00:00:00 38137 Family Practic e 2021-10-25 2021-10-25 Consult Caryn, 1.2.840.1 [id number] 156219 7649 Methodi 13:30:00 13:53:36 Anabel De La Cruz 48443.1.[address] 3.430.2.7 Hospit a .3.915520 l .8 2021-10-25 2021-10-25 Outpatient CARYN [facility] [id number] 8[address] [place] 00:00:00 00:00:00 ANABEL [address] 2021-10-25 2021-10-25 Prep for Orsak, 1.2.840.1 [id number] 47608 63850 Methodi 00:00:00 00:00:00 Surgery Jaqueline 94509.1.[address] 3.430.2.7 Hospit a .3.130756 l .8 2021-10-25 2021-10-25 Travel 1.2.840.1 1.2.713.401 2646 285541 Methodi 00:00:00 00:00:[address] 3.430.2.7 0.2.7.3.698 Ho spita .3.451335 084.8 l .8 2021-10-24 2021-10-24 Orders Aly, 1.2.840.1 [id number] 657236 6779 Methodi 00:00:00 00:00:00 Only Johanna 97713.1.1 064 Lo 3.430.2.7 Hospit a .3.963012 l .8 2021-10-22 2021-10-22 Emergency X [facility] ERT [id number] 47 Univers 03:59:00 06:39:00 [facility] 2021-10-22 2021-10-22 Emergency [facility] 1.2.543.050 4048 4067 Univers 03:59:00 06:39:00 [facility]10 [facility] 4[facility]2.7[facility]686 [facility] 023.0271507 [address] 2021-10-20 2021-10-20 Telemedici Aly 1.2.840.1 [id number] 212 1828698 Methodi 15:15:00 15:24:44 ne Johanna 50616.1.1 086 Lo 3.430.2.7 Hospit a .3.819637 l .8 2021-10-20 2021-10-20 Outpatient [facility] [id number] [address] [place] [address] 00:00:00 00:00:00 JOHANNA [address] 2021 2021 Mary Martin [facility] [place] - 842522-5 02 Village 00:00:00 00:00:00 Dary [facility] Family MD Maribell: [address] VM_HOU_N. e [address], ([facility]) [address], [facility] [place] [address] , Ph. 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 e [place], [address], ([facility]) [place] [address] , Ph. 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 e [place], [address], ([facility]) [place] [address] , Ph. 2021-09-05 2021-09-05 Clinical Aly, 1.2.840.1 [id number] 09211 85627 Methodi 08:15:00 08:30:44 Support Johanna 16721.1.1 855 Lo 3.430.2.7 Hospit a .3.636678 l .8 2021-09-05 2021-09-05 Outpatient [facility] [id number] [address] [place] 00:00:00 00:00:[address] 2021-09-02 2021-09-02 Office Aly 1.2.840.1 [id number] 453854 7356 Methodi 09:45:00 10:18:11 Visit Johanna 31509.1.1 724 Lo 3.430.2.7 Hospit a .3.661592 l .8 2021-09-02 2021-09-02 Outpatient [facility] [id number] 7[address] [place] 00:00:00 00:00:[address] JOHANNA [address] 2021-09-02 2021-09-02 Travel 1.2.840.1 1.2.765.839 2061 586556 Methodi 00:00:00 00:00:[address] 3.430.2.7 0.2.7.3.698 Ho spita .3.977292 084.8 l .8 2021-08-23 2021-08-23 Ancillary Aly, 1.2.840.1 [id number] 2099 149211 Methodi 07:30:00 07:56:44 Procedure Johanna 75777.1.1 154 Lo 3.430.2.7 Hospit a .3.915789 l .8 2021-08-23 2021-08-23 Outpatient [facility] [id number] [address] [place] 00:00:00 00:00:00 JOHANNA [address] 2021-08-23 2021-08-23 Travel 1.2.840.1 1.2.171.979 1472 296357 Methodi 00:00:00 00:00:[address] 3.430.2.7 0.2.7.3.698 Ho spita .3.425256 084.8 l .8 2021-08-20 2021-08-20 Venecia Ovalles_Mi [facility] [place] - 236599-[address] [place] [address] 00:00:00 00:00:00 Christ SOAKING ROOM OPERATOR: [address] VM_HOU_N. e [place], [address], ([facility]) [place] [address] , Ph. 2021-08-19 2021-08-19 Orders Aly, 1.2.840.1 [id number] 072911 6965 Methodi 00:00:00 00:00:00 Only Johanna 25473.1.1 397 Lo 3.430.2.7 Hospit a .3.531141 l .8 2021-07-19 2021-07-19 Office Aly, 1.2.840.1 [id number] 574080 6481 Methodi 14:45:00 14:56:18 Visit Johanna 51643.1.1 862 Lo 3.430.2.7 Hospit a .3.213467 l .8 2021-07-19 2021-07-19 Office Aly, 1.2.840.1 855042594 315391 2565 Methodi 11:15:00 11:29:08 Visit Johanna 47452.1.1 619 Lo 3.430.2.7 Hospit a .3.466537 l .8 2021-07-19 2021-07-19 Outpatient [facility] [id number] [address] [place] 00:00:00 00:00:00 JOHANNA 619 Method i 2021-07-19 2021-07-19 Outpatient [facility] [id number] [address] [place] 00:00:00 00:00:00 JOHANNA [address] 2021-07-18 2021-07-18 Outpatient Reddy_M VFP [facility] 368694- 202 [facility] 12:35:00 12:35:00 19935 Family Practic e 2021-07-15 2021-07-15 [facility] Reddy_M VFP [place] - 122385-612 [facility] 00:00:00 00:00:00 MD Junior: [facility] 08649[facility] regan 9055 [facility], _HOU_[facility] [address], [place] [address] , Ph. 2021-07-11 2021-07-11 Office Aly, 1.2.840.1 [id number] 026467 5002 Methodi 16:30:00 16:47:22 Visit Johanna 51716.1.1 628 Lo 3.430.2.7 Hospit a .3.425744 l .8 2021-07-11 2021-07-11 Ancillary Aly, 1.2.840.1 [id number] 2100 425597 Methodi 16:00:00 16:25:41 Procedure Johanna 55518.1.1 627 Lo 3.430.2.7 Hospit a .3.887980 l .8 2021-07-11 2021-07-11 Outpatient [facility] [id number] [address] [place] [address] 00:00:00 00:00:00 JOHANNA [address] 2021-07-11 2021-07-11 Outpatient [facility] [id number] [address] [place] [address] 00:00:00 00:00:00 JOHANNA [address] 2021-07-11 2021-07-11 Travel 1.2.840.1 1.2.718.465 5285 707725 Methodi 00:00:00 00:00:[address] 3.430.2.7 0.2.7.3.698 Ho spita .3.078567 084.8 l .8 2021-07-11 2021-07-11 Orders Journet, 1.2.840.1 453992684 69077 92205 Methodi 00:00:00 00:00:00 Only Jacobaya 69967.1.[address] 3.430.2.7 Hospit a .3.991129 l .8 2021-07-07 2021-07-07 [facility] 1.2.840.1 [id number] 77161 01162 Methodi 07:11:00 14:30:00 Encounter Johanna 60348.1.1 594 Lo 3.430.2.7 Hospit a .3.745182 l .8 2021-07-07 2021-07-07 Surgery [facility] 1.2.840.1 [id number] 843235 8186 Methodi 10:00:00 12:00:00 Johanna 95422.1.1 363 Lo 3.430.2.7 Hospit a .3.092234 l .8 2021-07-07 2021-07-07 Anesthesia Raheel Tripp 1.2.840.1 32916 1029 1589392370 Methodi 10:22:00 11:31:00 Event Arianne Castaneda 21141.1.[address] 3.430.2.7 Hospit a .3.425314 l .8 2021-07-07 2021-07-07 Outpatient [facility] 723 [id number] [address] [place] 00:00:00 00:00:00 JOHANNA [address] 2021-07-07 2021-07-07 Travel 1.2.840.1 1.2.518.736 0974 859206 Methodi 00:00:00 00:00:[address] 3.430.2.7 0.2.7.3.698 Ho spita .3.147199 084.8 l .8 2021-07-05 2021-07-05 Pre-Admiss Aly, 1.2.840.1 414803051 240 6476275 Methodi 13:30:00 14:30:00 ion Johanna 39895.1.[address] Testing Hector 3.430.2.7 Hospit a .3.276848 l .8 2021-07-05 2021-07-05 Outpatient [facility] [id number] 7[address] [place] 00:00:00 00:00:00 JOHANNA [address] 2021-07-05 2021-07-05 Orders Lay, 1.2.840.1 [id number] 696435 5659 Methodi 00:00:00 00:00:00 Only Johanna 83287.1.1 085 Lo 3.430.2.7 Hospit a .3.290173 l .8 2021-07-05 2021-07-05 Telephone Journet, 1.2.840.1 [id number] 210 9068097 Methodi 00:00:00 00:00:[address] 3.430.2.7 Hospit a .3.574536 l .8 2021-07-05 2021-07-05 Travel 1.2.840.1 1.2.174.167 8438 282200 Methodi 00:00:00 00:00:[address] 3.430.2.7 0.2.7.3.698 Ho spita .3.998771 084.8 l .8 2021-06-30 2021-06-30 Telemedici Aly, 1.2.840.1 [id number] 817 9582854 Methodi 13:30:00 13:30:11 ne Johanna 43952.1.1 830 Lo 3.430.2.7 Hospit a .3.781652 l .8 2021-06-30 2021-06-30 Outpatient ALY, [facility] [id number] 7[address] [place] 00:00:00 00:00:00 JOHANNA [address] 2021-06-30 2021-06-30 Prep for Aly, 1.2.840.1 120039159 68109 27566 Methodi 00:00:00 00:00:00 Surgery Johanna 94451.1.1 075 Lo 3.430.2.7 Hospit a .3.460522 l .8 2021-06-16 2021-06-16 Zahira Reddy_[place] [facility] 368142-200 [facility] 00:00:00 00:00:00 [facility] Famil y PA: 9055 Medical - Pract ic Celestina _[facility] e [facility], [facility] [address], [place] [address] , Ph. 2021-05-25 2021-05-25 Outpatient Reddy_M [facility] [id number]- 202 [facility] 07:18:00 07:18:00 Family Practic e 2021-05-25 2021-05-25 Telephone Journet, 1.2.840.1 [id number] 255 [id number] Methodi 00:00:00 00:00:[address] 3.430.2.7 Hospit a .3.741605 l .8 2021-05-25 2021-05-25 Travel 1.2.840.1 1.2.930.301 7430 811833 Methodi 00:00:00 00:00:[address] 3.430.2.7 0.2.7.3.698 Ho spita .3.247449 084.8 l .8 2021-05-20 2021-05-20 Orders Journet, 1.2.840.1 [id number] 04 Methodi 00:00:00 00:00:00 Only Mary Grace 16525.1.[address] 3.430.2.7 Hospit a .3.114268 l .8 2021-05-16 2021-05-16 Yary Magana Reddy_M VFP [facility] [id number] [facility] 00:00:00 00:00:00 Norah [facility] regan PA: 9055 Medical - Pract ic Celestina _[facility] e [facility], [facility] [address], [place] [address] , Ph. 2021-05-15 2021-05-15 Outpatient Reddy_M VFP P [id number]- [facility] 11:37:00 11:37:00 66335 Family Practic e 2021-05-13 2021-05-13 Outpatient Reddy_M VFP VFP [id number] [facility] 12:35:00 12:35:00 38382 Family Practic e 2021-05-12 2021-05-12 Procedure Aly, 1.2.840.1 [id number] 2099 522544 Methodi 13:45:00 14:07:44 visit Johanna 05050.1.1 946 Lo 3.430.2.7 Hospit a .3.857379 l .8 2021-05-12 2021-05-12 Ancillary Aly, 1.2.840.1 508662566 2099 860314 Methodi 13:00:00 13:29:52 Procedure Johanna 70602.1.1 947 Lo 3.430.2.7 Hospit a .3.538771 l .8 2021-05-12 2021-05-12 Outpatient [facility] [id number] [address] [place] [address] 00:00:00 00:00:00 JOHANNA [address] 2021-05-12 2021-05-12 Outpatient [facility] [id number] [address] [place] [address] 00:00:00 00:00:00 JOHANNA [address] 2021-05-12 2021-05-12 Travel 1.2.840.1 1.2.678.633 6462 902221 Methodi 00:00:00 00:00:[address] 3.430.2.7 0.2.7.3.698 Ho spita .3.167893 084.8 l .8 2021-05-05 2021-05-05 Outpatient Reddy_M VFP VFP [id number] [facility] 10:06:00 10:06:00 Family Practic e 2021-05-04 2021-05-04 Outpatient Reddy_M VFP VFP [id number] [facility] 12:42:00 12:42:00 Family Practic e 2021-05-03 2021-05-03 Outpatient [facility] [id number] [address] [place] 00:00:00 00:00:[address] 2021-05-03 2021-05-03 Aiyana Montgomery 1.2.840.1 [id number] 581 [id number] Methodi 00:00:00 00:00:00 Only Damian H. 51251.1.[address] 3.430.2.7 Hospit a .3.904977 l .8 2021-05-03 2021-05-03 Travel 1.2.840.1 1.2.844.859 5495 435108 Methodi 00:00:00 00:00:[address] 3.430.2.7 0.2.7.3.698 Ho spita .3.333867 084.8 l .8 2021-05-02 2021-05-02 [facility] Reddy_M VFP [place] - 109221-764 [facility] 00:00:00 00:00:00 MD Junior: [facility] [address] [place] [address], VM_HOU_Memo e [address], [place] [address] , Ph. 2021-04-26 2021-04-26 Telephone Maurice Murguia.2.840.1 [id number] 2099 687944 Methodi 00:00:00 00:00:00 Johanna 79677.1.1 197 Lo 3.430.2.7 Hospit a .3.555511 l .8 2021-04-25 2021-04-25 Orders Journet, 1.2.840.1 [id number] 77257 97090 Methodi 00:00:00 00:00:00 Only Mary Grace 32626.1.[address] 3.430.2.7 Hospit a .3.134910 l .8 2021-04-25 2021-04-25 Orders Journet, 1.2.840.1 504635061 98855 89558 Methodi 00:00:00 00:00:00 Only Mary Grace 60174.1.[address] 3.430.2.7 Hospit a .3.458315 l .8 2021-04-22 2021-04-22 Office Aly, 1.2.840.1 624382119 379832 8007 Methodi 10:46:00 11:17:23 Visit Johanna 00934.1.1 459 Lo 3.430.2.7 Hospit a .3.072082 l .8 2021-04-22 2021-04-22 Office Aly, 1.2.840.1 124088428 977240 5673 Methodi 10:45:00 11:17:23 Visit Johanna 18067.1.1 459 Lo 3.430.2.7 Hospit a .3.115071 l .8 2021-04-22 2021-04-22 Travel 1.2.840.1 1.2.943.681 5496 561863 Methodi 00:00:00 00:00:[address] 3.430.2.7 0.2.7.3.698 Ho spita .3.591370 084.8 l .8 2021-04-22 2021-04-22 Travel 1.2.840.1 1.2.051.821 5171 013173 Methodi 00:00:00 00:00:[address] 3.430.2.7 0.2.7.3.698 Ho spita .3.543852 084.8 l .8 2021-03-28 2021-03-28 Outpatient Jaswani_S VFP VFP 39716 [facility] 03:23:00 03:23:00 Family Practic e 2021-03-25 2021-03-25 Outpatient Reddy_M VFP VFP [id number] [facility] 08:27:00 08:27:00 Family Practic e 2021-03-23 2021-03-23 Indio Camarena Reddy_[place] VFP [place] 707458-103 [facility] 00:00:00 00:00:00 [facility] Famil y SOAKING ROOM OPERATOR: 20671 Medical - Prac tic Bammel VM_HOU_[facility] [place] [address] , Ph. 2021-03-16 2021-03-16 Fatema Reddy_M VFP [facility] 039802-450 [facility] 00:00:00 00:00:00 ANISH Chiang: [place] [id number] [facility] regan 35155 Medical - Practi c Bammel VM_HOU_[facility] ([place] [address] , Ph. 2021-03-15 2021-03-15 Zakiya Reddy_M VFP [place] - 075913-318 [facility] 00:00:00 00:00:00 [place] [id number] Famil y Laron, SOAKING ROOM OPERATOR: Medical - Pract ic 09[address] VM_HOU_[facility] ([facility], [place] [address] , Ph. 2021-03-09 2021-03-09 Outpatient Jaswani_S VFP [place]FP 04330 [facility] 10:05:00 10:05:00 53448 Family Practic e 2021-02-25 2021-02-25 Ashley Reddy_M VFP [place] - 164481-927 [facility] 00:00:00 00:00:00 MD Junior: [place] [id number] Fam regan 9055 Celestina Medical - Prac tic [facility], VM_HOU_Memo e [address], [place] [address] , Ph. 2021-02-22 2021-02-22 Outpatient Reddy_M VFP [facility] 535101 [facility] 05:27:00 05:27:00 42015 Family Practic e 2021-01-26 2021-01-26 Outpatient Jaswani_S VFP [place]F 42064 [facility] 06:16:00 06:16:00 76905 Family Practic e 2020-12-03 2020-12-03 Office Aly, 1.2.840.1 [id number] 066472 3971 Methodi 10:38:08 10:55:14 Visit Johanna 24890.1.1 354 Lo 3.430.2.7 Hospit a .3.094050 l .8 2020-12-03 2020-12-03 Travel 1.2.840.1 1.2.321.209 6372 753303 Methodi 00:00:00 00:00:[address] 3.430.2.7 0.2.7.3.698 Ho spita .3.277881 084.8 l .8 2020-11-16 2020-11-16 Outpatient Reddy_M VFP [facility] [id number] [facility] 03:59:00 03:59:00 27912 Family Practic e 2020-11-15 2020-11-15 Magdy M Scarbrough_ VFP [facility] [address] [facility] 00:00:00 00:00:00 Jerrod CALEB [facility] [address] [facility] regan , DO: Medical - Practi c 27508 VM_HOU_Cypr e Hao Loza (JOSS Perez, WEI Bui [address] , Ph. 2020-11-13 2020-11-13 Outpatient Scarbrough_ VFP VFP 840 56 [facility] 11:35:00 11:35:00 CALEB 75979 Family Practic e 2020-11-10 2020-11-10 Outpatient Scarbrough_ VFP VFP 840 567 [facility] 11:09:00 11:09:00 [facility] [address] Family Practic e 2020-11-09 2020-11-09 Magdy Randle Scarbrough_ VFP [place] - [address] [facility] 00:00:00 00:00:00 Jerrod [facility] [address] Hong spears DO: Medical - Practi c 77054 VM_HOU_Cypr e Linwood ervin Romanomscaitlyn ([facility]) Chris, [place] [address] , Ph. 2020-11-04 2020-11-04 Anujjennyfer Albrecht Scarbrough_ VFP [place] - 8405 [facility] 00:00:00 00:00:00 Tabbyelias [facility] [address] [facility] regan butcher MD: Medical - Practi c 8810 VM_HOU_Inwo e Frandy od ([facility]) , [place] [address] , Ph. 2020-11-04 2020-11-04 Telephone Journet, 1.2.840.1 [id number] Methodi 00:00:00 00:00:[address] 3.430.2.7 Hospit a .3.268739 l .8 2020-11-04 2020-11-04 Telephone Journet, 1.2.840.1 [id number] Methodi 00:00:00 00:00:[address] 3.430.2.7 Hospit a .3.874350 l .8 2020-11-04 2020-11-04 Telephone Journet, 1.2.840.1 [id number] [id number] Methodi 00:00:00 00:00:[address] 3.430.2.7 Hospit a .3.280967 l .8 2020-10-11 2020-10-11 Outpatient Scarbrough_ VFP VFP 840 567 [facility] 02:47:00 02:47:00 CALEB 17458 Family Practic e 2020-09-23 2020-09-23 Outpatient Scarbrough_ VFP VFP [id number] [facility] 06:01:00 06:01:00 CALEB 96837 Family Practic e 2020-09-21 2020-09-21 Anabel Leblanc Reddy_M VFP [place] - [id number] [facility] 00:00:00 00:00:00 Yifan [facility] [address] [facility] : 9055 Medical - Pract ic Celestina LIEBERMAN_HOU_Memo e [facility], [facility] [address], [place] [address] , Ph. 2020-09-20 2020-09-20 Outpatient Reddy_M VFP VFP [id number]- [facility] 01:26:00 01:26:00 46023 Family Practic e 2020-09-11 2020-09-11 Miguel Pendleton Reddy_M VFP [place] - 154239-924 [facility] 00:00:00 00:00:00 MD Yesika: [place] [id number] Famil y 8810 Medical - Practi muriel Wise VM_HOU_Inwo yousif Colvin, od ([facility]) [place] [address] , Ph. 2020-09-10 2020-09-10 Outpatient Scarbrough_ VFP VFP 840 567- [facility] 08:16:00 08:16:00 CALEB 09827 Family Practic e 2020-09-07 2020-09-07 Glenda Sol Scarbrough_ VFP [place] - 8405 67202 [facility] 00:00:00 00:00:00 CALEB Gtz [facility] [address] [facility] MD: 8810 Medical - Pract raulito Wise VM_HOU_Inwo yousif Colvin od ([facility]) [place] [address] , Ph. 2020-07-21 2020-07-21 Emergency BRET, [facility] 064 2100 485752 [place] 00:00:00 00:00:00 CAROLINA Bee Method i st 2020-07-21 2020-07-21 Travel 1.2.840.1 1.2.309.954 0903 [id number] Methodi 00:00:00 00:00:[address] 3.430.2.7 0.2.7.3.698 Ho spita .3.279443 084.8 l .8 2020-06-08 2020-06-08 Outpatient Reddy_M VFP VFP [id number]- [facility] 07:11:00 07:11:00 29901 Family Practic e 2020-06-02 2020-06-02 Ashley Reddy_M VFP [place] - [id number] [facility] 00:00:00 00:00:00 MD Junior: [place] [id number] [facility] 9055 [facility], _HOU_Memo e [address] [address] , Ph. 2020-06-01 2020-06-01 Outpatient Scarbrough_ VFP VFP 840 567 [facility] 06:40:00 06:40:00 J_MARRY 13178 Family Practic e 2020-03-31 2020-03-31 Outpatient Reddy_M VFP VFP [id number]- [facility] 06:22:00 06:22:00 67925 Family Practic e 2020-03-29 2020-03-29 Deana Reddy_M VFP [place] - 068059-652 [facility] 00:00:00 00:00:00 [facility] [address] Wilfredo Bolden [facility] MD: 9055 VM[facility]HOU[facility] [facility], [address] [address] , Ph. 2020-03-26 2020-03-26 Outpatient Pedroza_R_W VFP VFP [id number] [facility] 04:15:00 04:15:00 [place] [id number] Family Practic e 2020-03-08 2020-03-08 Outpatient Pedroza_R_W VFP VFP [id number] [facility] 01:26:00 01:26:00 AG [id number] Family Practic e 2020-03-03 2020-03-03 Ashley Reddy_M VFP [place] - [id number] [facility] 00:00:00 00:00:00 MD Junior: [facility] [address]87 [facility] regan 9055 [facility], VM_HOU_Memo e [address], [place] [address] , Ph. 2020-03-02 2020-03-02 Outpatient Reddy_M VFP [facility] [id number] [facility] 09:35:00 09:35:00 [id number] Family Practic e 2020-03-01 2020-03-01 Pippa Reddy_M VFP [facility] [id number] [facility] 00:00:00 00:00:00 MD Polina: [facility] 17293 [facility] ly 9511 Medical - Practi muriel Lopez VM_HOU_Cypr e r Chris, [facility] [address], [place] [address] , Ph. 2020-02-29 2020-02-29 Ushma Pedroza_R_W VFP [facility] [id number] [facility] 00:00:00 00:00:00 TY Enriquez [facility] [address] Famil y SOAKING ROOM OPERATOR: 8810 Medical - Pract raulito Wise VM_HOU_Inchengo yousif [place] ([facility]) [place] [address] , Ph. 2020-02-10 2020-02-10 Outpatient Reddy_M VFP [facility] [id number] [facility] 05:41:00 05:41:00 [id number] Family Practic e 2020-02-07 2020-02-07 Kari Pedroza_R_W VFP [facility] [id number] [facility] 00:00:00 00:00:00 Talita AG [facility] 82804 Family Nard, SOAKING ROOM OPERATOR: Medical - Prac tic 17613 VM_HOU_Cypr e [facility] Antolin Loza ([facility]) Chris, [place] [address] , Ph. 2020-02-06 2020-02-06 Outpatient Pedroza_R_W VFP P [id number]- [facility] 04:22:00 04:22:00 AG [id number] Family Practic e 2020-02-02 2020-02-02 Outpatient ALY, [facility] [id number] [address] [place] 00:00:00 00:00:00 JOHANNA [address] 2020-01-26 2020-01-26 Outpatient ALY, [facility] [id number] [address] [place] 00:00:00 00:00:00 JOHANNA [address] 2020-01-05 2020-01-05 Outpatient ALY, [facility] [id number] [address] [place] 00:00:00 00:00:00 JOHANNA [address] 2019-11-05 2019-11-05 Outpatient Reddy_M VFP VFP [id number] [facility] 07:42:00 07:42:00 [id number] Family Practic e 2019-10-31 2019-10-31 Alexa T Reddy_M VFP [place] - [id number] [facility] 00:00:00 00:00:00 Judd [facility] [address] Famil y PA: 34593 Medical - Prac tic [facility]_HOU_Maso e [facility], [facility] [address], [place] [address] , Ph. 2019-08-15 2019-08-15 Outpatient Reddy_M VFP VFP [id number] [facility] 07:02:00 07:02:00 [id number] Family Practic e 2019-08-12 2019-08-12 Ashley VFP [place] - [id number] [facility] 00:00:00 00:00:00 MD Junior: [facility] [address] [facility], VM_HOU_Memo e [address], [place] [address] , Ph. 2019-07-28 2019-07-28 Outpatient Reddy_M VFP VFP [id number] [facility] 02:40:00 02:40:00 [id number] Family Practic e 2019-07-15 2019-07-15 Outpatient Reddy_M VFP VFP [id number] [facility] 10:02:00 10:02:00 [id number] Family Practic e 2019-07-14 2019-07-14 Ashley Reddy_M VFP [place] - [id number] [facility] 00:00:00 00:00:00 MD Junior: [facility] [address] [facility], VM_HOU_Memo e [address], [place] [address] , Ph. 2019-07-11 2019-07-11 Ashley [facility] - [id number] [facility] 00:00:00 00:00:00 MD Junior: [facility] [address] [facility], VM_HOU_Memo e [address], [place] [address] , Ph. 2019-07-10 2019-07-10 Outpatient Susana [facility] [id number] [facility] 10:00:00 10:00:[address] [place] [address] e Results Test Description Test Time Test Comments Results Result Comments Source Influenza virus A and B and SARS-CoV+SARS-CoV-2 (COVID -19) Ag 2022-03-03 18:44:54 panel - Upper respiratory specimen by Rapid immunoassay Test Item Value Reference Range Interpretation Comme nts Influenza A (test code = Influenza A) Presumptive Negative Influenza B (test code = Influenza B) Presumptive Negative SARS-CoV-2 Antigen (test code = SARS-CoV-2 Antigen) Presumptive Neg ative [facility], [id number] 18:33:49 Test Item Value Reference Range Interpretation Comments Strep (test code = Strep) negative [facility]em[facility] A1c/Hemoglobin.total in [id number] 00:00:00 Test Item Value Reference Range Interpretation Comments Hemoglobin A1c/Hemoglobin.total in 6.5 % 1.0-5.7 H Blood (test code = 4548-4) average blood glucose (calculation) 140 mg/dL (test code = average blood glucose (calculation)) [facility]Prolactin [Mass/volume] in Serum or [id number] 00:00:00 Test Item Value Reference Range Interpretation Comments prolactin (test code = prolactin) 23.1 NG/mL 4.8-23.3 [facility]Prol[facility] [Mass/volume] in Serum or [id number] 00:00:00 Test Item Value Reference Range Interpretation Comments prolactin (test code = prolactin) 23.1 NG/mL 4.8-23.3 [facility] HospitalUrinalysis macro (dipstick) panel - [id number] 16:08:00 Test Item Value Reference Range Interpretation Comments Color Color (test code = Color yellow Color) Color Appearance (test code = Color clear Appearance) Color Glucose (test code = Color negative Glucose) Color Bilirubin (test code = Color negative Bilirubin) Color Ketones (test code = Color negative Ketones) Color Specific [place] (test code = 1.025 Color Specific [place]) Color Blood (test code = Color negative Blood) Color PH (test code = Color PH) 6.5 Color Protein (test code = Color negative Protein) Color Urobilinogen (test code = 0.2 Color Urobilinogen) Color Nitrites (test code = Color negative Nitrites) Color Leukocytes (test code = Color negative Leukocytes) [facility] HospitalUrinalysis macro (dipstick) panel - [id number] 16:08:00 Test Item Value Reference Range Interpretation Comments Color Color (test code = Color yellow Color) Color Appearance (test code = Color clear Appearance) Color Glucose (test code = Color negative Glucose) Color Bilirubin (test code = Color negative Bilirubin) Color Ketones (test code = Color negative Ketones) Color Specific [place] (test code = 1.025 Color Specific [place]) Color Blood (test code = Color negative Blood) Color PH (test code = Color PH) 6.5 Color Protein (test code = Color negative Protein) Color Urobilinogen (test code = 0.2 Color Urobilinogen) Color Nitrites (test code = Color negative Nitrites) Color Leukocytes (test code = Color negative Leukocytes) [facility] HospitalThyrotropin [Units/volume] in Serum or [id number] 00:00:00 Test Item Value Reference Range Interpretation Comments TSH (test code = TSH) 0.903 uIU/mL 0.350-4.940 [facility]Comprehensive [facility] 2000 panel - Serum or Plasma 2022-02-24 00:00:00 Test Item Value Reference Range Interpretation Comments ALT (test code = ALT) 22 U/L 0-55 AST (test code = AST) 27 U/L 5-34 BUN (test code = BUN) 6.8 mg/dL 7.0-25.0 L alk phos (test code = alk phos) 61 unit/L 40-150 glucose (test code = glucose) 99 mg/dL 70-99 albumin (test code = albumin) 4.1 g/dL 3.4-5.1 creatinine (test code = 0.68 mg/dL 0.57-1.11 creatinine) eGFR (test code = eGFR) >60 total bilirubin (test code = 0.4 mg/dL 0.2-1.2 total bilirubin) sodium (test code = sodium) 140 mEq/L 135-145 potassium (test code = potassium) 4.2 mEq/L 3.5-5.3 chloride (test code = chloride) 101 mmol/L 98-110 total protein (test code = total 7.6 g/dL 6.1-8.2 protein) calcium (test code = calcium) 10.0 mg/dL 8.4-10.4 CO2 (test code = CO2) 26.8 mmol/L 20.0-32.0 anion gap (test code = anion gap) 12 calc [facility] HospitalLip[facility] 1996 panel - Serum or [id number] 00:00:00 Test Item Value Reference Range Interpretation Comments HDL (test code = HDL) 41 mg/dL L triglyceride (test code = 200 mg/dL <150 H triglyceride) VLDL (calculated) (test code = VLDL 40 mg/dL (calculated)) cholesterol/HDL ratio (test code = 4.5 mg/dL cholesterol/HDL ratio) non-HDL cholesterol (calculated) 142 mg/dL <160 (test code = non-HDL cholesterol (calculated)) cholesterol (test code = 183 mg/dL <200 cholesterol) Cholesterol in LDL [Mass/volume] in 102 mg/dL <130 Serum or Plasma (test code = 2089-1) [facility] HospitalCB W Auto Differential panel - [id number] 00:00:00 Test Item Value Reference Range Interpretation Comments WBC (test code = WBC) 13.30 x10*3/?L 4.00-11.00 H RBC (test code = RBC) 5.06 10*12/L 3.93-5.22 hemoglobin (test code = 12.70 g/dL 11.20-15.70 hemoglobin) hematocrit (test code = 41.4 % 34.1-44.9 hematocrit) MCV (test code = MCV) 81.8 fL 80.0-100.0 MCH (test code = MCH) 25.1 pg 25.6-32.2 L MCHC (test code = MCHC) 30.7 g/dL 32.2-35.5 L RDW-SD (test code = RDW-SD) 43.2 fL 36.4-46.3 platelet count (test code = 417.0 k/uL 150.0-400.0 H platelet count) MPV (test code = MPV) 10.1 fL 7.5-11.5 neut% (test code = neut%) 62.9 % 34.0-71.1 lymph% (test code = lymph%) 28.3 % 19.3-51.7 mon% (test code = mon%) 6.4 % 4.7-12.5 eos% (test code = eos%) 1.5 % 0.7-5.8 baso% (test code = baso%) 0.5 % 0.1-1.2 neut# (test code = neut#) 8.4 x10*3/?L 1.6-6.1 H lymph# (test code = lymph#) 3.8 x10*3/?L 1.2-3.7 H mon# (test code = mon#) 0.9 x10*3/?L 0.2-0.9 eos# (test code = eos#) 0.20 x10*3/?L 0.04-0.36 baso# (test code = baso#) 0.06 x10*3/?L 0.01-0.08 [facility] HospitalThyrotropin [Units/volume] in Serum or [id number] 00:00:00 Test Item Value Reference Range Interpretation Comments TSH (test code = TSH) 0.903 uIU/mL 0.350-4.940 [facility] PracticeComprehensive metabolic 2000 panel - Serum or Plasma 2022-02-24 00:00:00 Test Item Value Reference Range Interpretation Comments ALT (test code = ALT) 22 U/L 0-55 AST (test code = AST) 27 U/L 5-34 BUN (test code = BUN) 6.8 mg/dL 7.0-25.0 L alk phos (test code = alk phos) 61 unit/L 40-150 glucose (test code = glucose) 99 mg/dL 70-99 albumin (test code = albumin) 4.1 g/dL 3.4-5.1 creatinine (test code = 0.68 mg/dL 0.57-1.11 creatinine) eGFR (test code = eGFR) >60 total bilirubin (test code = 0.4 mg/dL 0.2-1.2 total bilirubin) sodium (test code = sodium) 140 mEq/L 135-145 potassium (test code = potassium) 4.2 mEq/L 3.5-5.3 chloride (test code = chloride) 101 mmol/L 98-110 total protein (test code = total 7.6 g/dL 6.1-8.2 protein) calcium (test code = calcium) 10.0 mg/dL 8.4-10.4 CO2 (test code = CO2) 26.8 mmol/L 20.0-32.0 anion gap (test code = anion gap) 12 calc [facility] 1995 panel - Serum or [id number] 00:00:00 Test Item Value Reference Range Interpretation Comments HDL (test code = HDL) 41 mg/dL L triglyceride (test code = 200 mg/dL <150 H triglyceride) VLDL (calculated) (test code = VLDL 40 mg/dL (calculated)) cholesterol/HDL ratio (test code = 4.5 mg/dL cholesterol/HDL ratio) non-HDL cholesterol (calculated) 142 mg/dL <160 (test code = non-HDL cholesterol (calculated)) cholesterol (test code = 183 mg/dL <200 cholesterol) Cholesterol in LDL [Mass/volume] in 102 mg/dL <130 Serum or Plasma (test code = 2089-1) [facility] A, [id number] 19:23:00 Test Item Value Reference Range Interpretation Comments Strep (test code = Strep) negative [facility] A, [id number] 19:23:00 Test Item Value Reference Range Interpretation Comments Strep (test code = Strep) negative [facility] HospitalHemoglobin A1c/Hemoglobin.total in [id number] 00:00:00 Test Item Value Reference Range Interpretation Comments Hemoglobin A1c/Hemoglobin.total in 6.3 % 1.0-5.7 H Blood (test code = 4548-4) average blood glucose (calculation) 134 mg/dL (test code = average blood glucose (calculation)) [facility] HospitalUrine [id number] 09:35:00 Test Item Value Reference Range Interpretation Comments Urine culture (test No growth code = 630-4) SANIYA (test code = SANIYA) Performed at: [facility] [id number] Director: Cedrick Arias MD, Phone: [phone] [facility] [id number] 20:50:01 Test Item Value Reference Range Interpretation Comments Case number (test code = [id number]) Surgical pathology See link below for report (test code = PDF Lab Report [id number]) Result status (test code This is Final Report = [id number]) for [id number] [facility] HospitalARS-CoV-2 (COVID-19) RNA [Presence] in Respiratory specimen by ROHINI with probe [id number] 23:03:55 Test Item Value Reference Range Interpretation Comments SARS-CoV-2 (COVID-19) RNA Not detected [Presence] in Respiratory specimen by ROHINI with probe detection (test code = 22149-1) Whether patient is employed in a Unknown healthcare setting (test code = 93084-0) Whether the patient has symptoms Unknown related to condition of interest (test code = 17220-8) Whether the patient was Unknown hospitalized for condition of interest (test code = 16884-3) Whether the patient was admitted Unknown to intensive care unit (ICU) for condition of interest (test code = 21144-9) Whether patient resides in a Unknown congregate care setting (test code = 28347-7) status (test code = Unknown 19339-5) Date and time of symptom onset Unknown (test code = 40317-3) [facility]ITALUrinalysis macro (dipstick) panel - [id number] 10:23:59 Test Item Value Reference Range Interpretation Comments Color Color (test code = Color yellow Color) Color Appearance (test code = Color clear Appearance) Color Glucose (test code = Color negative Glucose) Color Bilirubin (test code = Color negative Bilirubin) Color Ketones (test code = Color trace Ketones) Color Specific [place] (test code = 1.015 Color Specific [place]) Color Blood (test code = Color large Blood) Color PH (test code = Color PH) 5.5 Color Protein (test code = Color negative Protein) Color Urobilinogen (test code = 0.2 Color Urobilinogen) Color Nitrites (test code = Color negative Nitrites) Color Leukocytes (test code = Color negative Leukocytes) [facility] with [id number] 09:54:24 Test Item Value Reference Range Interpretation Comments WBC (test code = See_Comment H [Automated 6690-2) message] The sy stem which generated this result transmitted reference range : 4.30 - 11.10 10*3/?L. The reference range was not used to interpret this result as normal/abnormal . RBC (test code = See_Comment [Automated 789-8) message] The sy stem which generated this result transmitted reference range : 3.93 - 5.25 10*6/?L. The reference range was not used to interpret this result as normal/abnormal . HGB (test code = 11.3 g/dL 11.6-15 L 718-7) HCT (test code = 34.9 % 35.7-45.2 L 4544-3) MCV (test code = 80.0 fL 80.6-95.5 L 787-2) MCH (test code = 25.9 pg 25.9-32.8 785-6) MCHC (test code = 32.4 g/dL 31.6-35.1 786-4) RDW-SD (test code = 40.1 fL 39-49.9 69699-1) RDW-CV (test code = 13.8 % 12-15.5 788-0) PLT (test code = See_Comment [Automated 777-3) message] The sy stem which generated this result transmitted reference range : 166 - 358 10*3/ ?L. The reference r christen was not used to interpret this result as normal/abnormal . MPV (test code = 9.7 fL 9.5-12.9 50941-8) NRBC/100 WBC (test See_Comment [Automat ed code = [id number]) message] The system which generated this result transmitted reference range : 0.0 - 10.0 /100 WBCs. The refer ence range was not u sed to interpret th is result as normal/abnormal . NRBC x10^3 (test code See_Comment [Auto mated = [id number]) message] The s ystem which generated this result transmitted reference range : 10*3/?L. The reference range was not used to interpret this result as normal/abnormal . GRAN MAT (NEUT) % 50.1 % (test code = 770-8) IMM GRAN % (test code 0.30 % = 0108075218) LYMPH % (test code = 40.3 % 736-9) MONO % (test code = 8.4 % 5905-5) EOS % (test code = 0.5 % 713-8) BASO % (test code = 0.4 % 706-2) GRAN MAT x10^3(ANC) 6.96 10*3/uL 1.88-7.09 (test code = 9785770298) IMM GRAN x10^3 (test 0.04 10*3/uL 0-0.06 code = 4097723884) LYMPH x10^3 (test code 5.59 10*3/uL 1.32-3.29 H = 731-0) MONO x10^3 (test code 1.16 10*3/uL 0.33-0.92 H = 742-7) EOS x10^3 (test code = 0.07 10*3/uL 0.03-0.39 711-2) BASO x10^3 (test code 0.06 10*3/uL 0.01-0.07 = 704-7) Lab Interpretation Abnormal (test code = 47955-5) [facility] [id number] 09:11:00 Test Item Value Reference Range Interpretation Comments POCT PREG (test code = 1605) Negative On board controls acceptable with Present C Line (test code = 3574) POCT PREG LOT # (test code = 3575) [id number] POCT PREG TEST DATE (test 01/16/2023 code = 3576) Lab Interpretation (test code = Normal 71585-3) [facility] W Auto Differential panel - Blood 2021-09-25 00:00:00 Test Item Value Reference Range Interpretation Comments Leukocytes [#/volume] in Blood 7.7 x10e3/uL 3.4-10.8 by Automated count (test code = 6690-2) Erythrocytes [#/volume] in 5.16 x10e6/uL 3.77-5.28 Blood by Automated count (test code = 789-8) Hemoglobin [Mass/volume] in 12.8 g/dL 11.1-15.9 Blood (test code = 718-7) Hematocrit [Volume Fraction] of 41.4 % 34.0-46.6 Blood by Automated count (test code = 4544-3) Erythrocyte mean corpuscular 80 fL 79-97 volume [Entitic volume] by Automated count (test code = 787-2) Erythrocyte mean corpuscular 24.8 pg 26.6-33.0 L hemoglobin [Entitic mass] by Automated count (test code = 785-6) Erythrocyte mean corpuscular 30.9 g/dL 31.5-35.7 L hemoglobin concentration [Mass/volume] by Automated count (test code = 786-4) Erythrocyte distribution width 14.7 % 11.7-15.4 [Ratio] by Automated count (test code = 788-0) Platelets [#/volume] in Blood 380 x10e3/uL 150-450 by Automated count (test code = 777-3) Neutrophils/100 leukocytes in 52 % not estab. Blood by Automated count (test code = 770-8) Lymphocytes/100 leukocytes in 37 % not estab. Blood by Automated count (test code = 736-9) Monocytes/100 leukocytes in 8 % not estab. Blood by Automated count (test code = 5905-5) Eosinophils/100 leukocytes in 2 % not estab. Blood by Automated count (test code = 713-8) Basophils/100 leukocytes in 1 % not estab. Blood by Automated count (test code = 706-2) Neutrophils [#/volume] in Blood 4.1 x10e3/uL 1.4-7.0 by Automated count (test code = 751-8) Lymphocytes [#/volume] in Blood 2.8 x10e3/uL 0.7-3.1 by Automated count (test code = 731-0) Monocytes [#/volume] in Blood 0.6 x10e3/uL 0.1-0.9 by Automated count (test code = 742-7) Eosinophils [#/volume] in Blood 0.1 x10e3/uL 0.0-0.4 by Automated count (test code = 711-2) Basophils [#/volume] in Blood 0.1 x10e3/uL 0.0-0.2 by Automated count (test code = 704-7) Immature granulocytes/100 0 % not estab. leukocytes in Blood by Automated count (test code = 81123-5) Immature granulocytes 0.0 x10e3/uL 0.0-0.1 [#/volume] in Blood by Automated count (test code = 74877-1) [facility] 2000 [facility] - Serum or Plasma 2021-09-25 00:00:00 Test Item Value Reference Range Interpretation Comments Glucose [Mass/volume] in 100 mg/dL 65-99 H Serum or Plasma (test code = 2345-7) Urea nitrogen [Mass/volume] 11 mg/dL 6-20 in Serum or Plasma (test code = 3094-0) Creatinine [Mass/volume] in 0.73 mg/dL 0.57-1.00 Serum or Plasma (test code = 2160-0) eGFR (test code = eGFR) 112 mL/min/1.73 >59 Urea nitrogen/Creatinine 15 9-23 [Mass Ratio] in Serum or Plasma (test code = 3097-3) Sodium [Moles/volume] in 140 mmol/L 134-144 Serum or Plasma (test code = 2951-2) Potassium [Moles/volume] in 4.7 mmol/L 3.5-5.2 Serum or Plasma (test code = 2823-3) Chloride [Moles/volume] in 101 mmol/L 96-106 Serum or Plasma (test code = 5-0) Carbon dioxide, total 23 mmol/L 20-29 [Moles/volume] in Serum or Plasma (test code = 2027-9) Calcium [Mass/volume] in 9.8 mg/dL 8.7-10.2 Serum or Plasma (test code = 51591-9) Protein [Mass/volume] in 7.6 g/dL 6.0-8.5 Serum or Plasma (test code = 2885-2) Albumin [Mass/volume] in 4.8 g/dL 3.8-4.8 Serum or Plasma (test code = 1751-7) Globulin [Mass/volume] in 2.8 g/dL 1.5-4.5 Serum by calculation (test code = 40603-6) Albumin/Globulin [Mass Ratio] 1.7 1.2-2.2 in Serum or Plasma (test code = 1759-0) Bilirubin.total [Mass/volume] 0.2 mg/dL 0.0-1.2 in Serum or Plasma (test code = 1975-2) Alkaline phosphatase 57 IU/L 44-121 [Enzymatic activity/volume] in Serum or Plasma (test code = 6768-6) Aspartate aminotransferase 18 IU/L 0-40 [Enzymatic activity/volume] in Serum or Plasma (test code = 1920-8) Alanine aminotransferase 19 IU/L 0-32 [Enzymatic activity/volume] in Serum or Plasma (test code = 1742-6) [facility]Thyrotropin [Units/volume] in Serum or Plasma by Detection limit <= 0.005 mIU/[id number] 00:00:00 Test Item Value Reference Range Interpretation Comments Thyrotropin [Units/volume] in 1.830 uIU/mL 0.450-4.500 Serum or Plasma by Detection limit <= 0.005 mIU/L (test code = 64083-6) [facility] , [id number] 13:33:00 Test Item Value Reference Range Interpretation Comments test urine, POC (test Negative code = 0641655) Internal QC (test code = 257) QC acceptable [facility] [id number] 03:39:18 Test Item Value Reference Range Interpretation Comments Ventricular rate (test code = 253) Atrial rate (test code = 255) MO interval (test code = 266) QRSD interval (test code = 260) QT interval (test code = 264) QTC interval (test code = 265) P axis 1 (test code = 267) QRS axis 1 (test code = 268) T wave axis (test code = 270) EKG impression (test Normal sinus code = 273) rhythm-Normal ECG-- [facility]ortic[facility]in [Mass/volume] in [id number] 00:00:00 Test Item Value Reference Range Interpretation Comments acth, plasma (test code = acth, 33 pg/mL 6-50 plasma) [facility]Corticotropin [Mass/volume] in [id number] 00:00:00 Test Item Value Reference Range Interpretation Comments acth, plasma (test code = acth, 33 pg/mL 6-50 plasma) [facility] HospitalEstradiol (E2) [Mass/volume] in Serum or [id number] 00:00:00 Test Item Value Reference Range Interpretation Comments estradiol (test code = estradiol) 46 pg/mL [facility] HospitalFollitropin and Lutropin panel [Units/volume] - Serum or [id number] 00:00:00 Test Item Value Reference Range Interpretation Comments FSH (test code = FSH) 4.7 mIU/mL LH (test code = LH) 6.2 mIU/mL [facility] HospitalCortisol [Mass/volume] in Serum or Plasma --AM peak [id number] 00:00:00 Test Item Value Reference Range Interpretation Comments cortisol, A.M. (test code = 13.5 mcg/dL cortisol, A.M.) [facility]epiandrosterone sulfate (DHEA-S) [Mass/volume] in Serum or [id number] 00:00:00 Test Item Value Reference Range Interpretation Comments DHEA sulfate (test code = DHEA 155 mcg/dL 19-237 sulfate) [facility] HospitalTestosterone [Mass/volume] in Serum or [id number] 00:00:00 Test Item Value Reference Range Interpretation Comments testosterone, total, MS (test code = 24 NG/dL 2-45 testosterone, total, MS) [facility] HospitalEstradiol (E2) [Mass/volume] in Serum or [id number] 00:00:00 Test Item Value Reference Range Interpretation Comments estradiol (test code = estradiol) 46 pg/mL [facility] HospitalFollitropin and Lutropin panel [Units/volume] - Serum or [id number] 00:00:00 Test Item Value Reference Range Interpretation Comments FSH (test code = FSH) 4.7 mIU/mL LH (test code = LH) 6.2 mIU/mL [facility] [[facility]/volume] in Serum or Plasma --AM peak [id number] 00:00:00 Test Item Value Reference Range Interpretation Comments cortisol, A.M. (test code = 13.5 mcg/dL cortisol, A.M.) [facility] PracticeDehydroepiandrosterone sulfate (DHEA-S) [Mass/volume] in Serum or [id number] 00:00:00 Test Item Value Reference Range Interpretation Comments DHEA sulfate (test code = DHEA 155 mcg/dL 19-237 sulfate) [facility] PracticeTestosterone [Mass/volume] in Serum or [id number] 00:00:00 Test Item Value Reference Range Interpretation Comments testosterone, total, MS (test code = 24 NG/dL 2-45 testosterone, total, MS) [facility] - [id number] 00:00:00 Test Item Value Reference Range Interpretation Comments soybean (F14) IgE (test code = soybean <0.10 (F14) IgE) class (test code = class) 0 shrimp (F24) IgE (test code = shrimp <0.10 (F24) IgE) scallop (F338) IgE (test code = scallop <0.10 (F338) IgE) sesame seed (F10) IgE (test code = <0.10 sesame seed (F10) IgE) hazelnut (F17) IgE (test code = <0.10 hazelnut (F17) IgE) cashew nut (F202) IgE (test code = <0.10 cashew nut (F202) IgE) almond (F20) IgE (test code = almond <0.10 (F20) IgE) salmon (F41) IgE (test code = salmon <0.10 (F41) IgE) tuna (F40) IgE (test code = tuna (F40) <0.10 IgE) interpretation (test code = interpretation) egg white (F1) IgE (test code = egg <0.10 white (F1) IgE) peanut (F13) IgE (test code = peanut <0.10 (F13) IgE) wheat (F4) IgE (test code = wheat (F4) <0.10 IgE) walnut (F256) IgE (test code = walnut <0.10 (F256) IgE) codfish (F3) IgE (test code = codfish <0.10 (F3) IgE) cow's milk (F2) IgE (test code = cow's <0.10 milk (F2) IgE) [facility]Prolactin [id number] 13:17:00 Test Item Value Reference Range Interpretation Comments Prolactin (test code = 25.0 ng/mL 4.8-23.3 H 2842-3) SANIYA (test code = SANIYA) Performed at: - [address] [id number] Director: Cedrick Arias MD, Phone: [phone] Lab Interpretation (test Abnormal code = 50470-1) [facility] [id number] 13:13:00 Test Item Value Reference Range Interpretation Comments Follicle mIU/mL Adult Female: stimulating Follicular phas e 3.5 hormone (test code - 12.5 Ov ulation = 28306-7) phase 4.7 - 21. 5 Luteal phase 1. 7 - 7.7 Postmenopau irving 25.8 - 134.8 SANIYA (test code = Performed at: SANIYA) - [address] [id number] Director: Cedrick Arias MD, Phone: [phone] [facility] HospitalLuteinizing [id number] 13:13:00 Test Item Value Reference Range Interpretation Comments Luteinizing mIU/mL Adult Female: hormone (test code Follicula r phase 2.4 = 87810-1) - 12.6 Ovulatio n phase 14.0 - 95 .6 Luteal phase 1. 0 - 11.4 Postmenopa usal 7.7 - 58.5 SANIYA (test code = Performed at: SANIYA) - [address] [id number] Director: Cedrick Arias MD, Phone: [phone] [facility] HospitalThyroid stimulating [id number] 13:13:00 Test Item Value Reference Range Interpretation Comments TSH (test code See_Comment [Automated m essage] = 48066-9) The system [employer] generated this result transmit jeni reference range : 0.450 - 4.500 uIU/mL. The reference range was not used to interpret this result as normal/abnormal . SANIYA (test code Performed at: - = SANIYA) [address] [id number] Director: Cedrick Arias MD, Phone: [phone] [facility]leFol[facility] [id number] 13:13:00 Test Item Value Reference Range Interpretation Comments Follicle mIU/mL Adult Female: stimulating Follicular phas e 3.5 hormone (test code - 12.5 Ov ulation = 49703-2) phase 4.7 - 21. 5 Luteal phase 1 .7 - 7.7 Postmenopau irving 25.8 - 134.8 SANIYA (test code = Performed at: 01 SANIYA) - Lab[address] [id number] Director: Cedrick Arias MD, Phone: [phone] [facility]leLutein[facility] [id number] 13:13:00 Test Item Value Reference Range Interpretation Comments Luteinizing mIU/mL Adult Female: hormone (test code Follicula r phase 2.4 = 47410-4) - 12.6 Ovulatio n phase 14.0 - 95 .6 Luteal phase 1. 0 - 11.4 Postmenopa usal 7.7 - 58.5 SANIYA (test code = Performed at: 01 SANIYA) - [address] [id number] Director: Cedrick Arias MD, Phone: [phone] [facility]leThyroid stimulating [id number] 13:13:00 Test Item Value Reference Range Interpretation Comments TSH (test code See_Comment [Automated m essage] = 71850-6) The system [employer] generated this result transmit jeni reference range : 0.450 - 4.500 uIU/mL. The reference range was not used to interpret this result as normal/abnormal . SANIYA (test code Performed at: 01 - = SANIYA) [address] [id number] Director: Cedrick Arias MD, Phone: [phone] [facility] [id number] 13:13:00 Test Item Value Reference Range Interpretation Comments WBC (test code = See_Comment [Automated 6690-2) message] The system which generated this result transmitted reference range : 3.4 - 10.8 x10E3/uL. The reference range was not used to interpret this result as normal/abnormal . RBC (test code = See_Comment [Automated 789-8) message] The system which generated this result transmitted reference range : 3.77 - 5.28 x10E6/uL. The reference range was not used to interpret this result as normal/abnormal . HGB (test code = 11.8 g/dL 11.1-15.9 718-7) HCT (test code = 36.3 % 34.0-46.6 4544-3) MCV (test code = 79 fL 79-97 787-2) MCH (test code = 25.6 pg 26.6-33.0 L 785-6) MCHC (test code = 32.5 g/dL 31.5-35.7 786-4) RDW (test code = 14.2 % 11.7-15.4 788-0) Platelet count (test See_Comment [Autom ated code = 777-3) message] The system which generated this result transmitted reference range : 150 - 450 x10E3/uL. The reference range was not used to interpret this result as normal/abnormal . SANIYA (test code = SANIYA) Performed at: [facility] [id number] Director: Cedrick Arias MD, Phone: [phone] Lab Interpretation Abnormal (test code = 00189-5) [facility]leProl[facility] [id number] 13:13:00 Test Item Value Reference Range Interpretation Comments Prolactin (test code = 23.8 ng/mL 4.8-23.3 H 2842-3) SANIYA (test code = SANIYA) Performed at: [facility] Lab[address] [id number] Director: Cedrick Arias MD, Phone: [phone] Lab Interpretation (test Abnormal code = 90755-1) [facility] Azlerapid influenza virus A + B and SARS CoV + SARS CoV 2 Ag panel, [place], upper respiratory [id number] 09:33:00 Test Item Value Reference Range Interpretation Comments Influenza A (test code = Presumptive Negative Influenza A) Influenza B (test code = Presumptive Negative Influenza B) SARS-CoV-2 Antigen (test Presumptive Negative code = SARS-CoV-2 Antigen) [facility] + B and SARS CoV + SARS CoV 2 Ag panel, [place], upper respiratory [id number] 09:33:00 Test Item Value Reference Range Interpretation Comments Influenza A (test code = Presumptive Negative Influenza A) Influenza B (test code = Presumptive Negative Influenza B) SARS-CoV-2 Antigen (test Presumptive Negative code = SARS-CoV-2 Antigen) [facility] influenza virus A + B and SARS CoV + SARS CoV 2 Ag panel, [place], upper respiratory [id number] 09:33:00 Test Item Value Reference Range Interpretation Comments Influenza A (test code = Presumptive Negative Influenza A) Influenza B (test code = Presumptive Negative Influenza B) SARS-CoV-2 Antigen (test Presumptive Negative code = SARS-CoV-2 Antigen) [facility] influenza virus A + B and SARS CoV + SARS CoV 2 Ag panel, [place], upper respiratory [id number] 09:33:00 Test Item Value Reference Range Interpretation Comments Influenza A (test code = Presumptive Negative Influenza A) Influenza B (test code = Presumptive Negative Influenza B) SARS-CoV-2 Antigen (test Presumptive Negative code = SARS-CoV-2 Antigen) [facility] influenza virus A + B and SARS CoV + SARS CoV 2 Ag panel, [place], upper respiratory [id number] 10:26:25 Test Item Value Reference Range Interpretation Comments Influenza A (test code = Presumptive Negative Influenza A) Influenza B (test code = Presumptive Negative Influenza B) SARS-CoV-2 Antigen (test Positive code = SARS-CoV-2 Antigen) [facility] influenza virus A + B and SARS CoV + SARS CoV 2 Ag panel, [place], upper respiratory [id number] 10:26:25 Test Item Value Reference Range Interpretation Comments Influenza A (test code = Presumptive Negative Influenza A) Influenza B (test code = Presumptive Negative Influenza B) SARS-CoV-2 Antigen (test Positive code = SARS-CoV-2 Antigen) [facility] influenza virus A + B and SARS CoV + SARS CoV 2 Ag panel, [place], upper respiratory [id number] 10:26:25 Test Item Value Reference Range Interpretation Comments Influenza A (test code = Presumptive Negative Influenza A) Influenza B (test code = Presumptive Negative Influenza B) SARS-CoV-2 Antigen (test Positive code = SARS-CoV-2 Antigen) [facility] + B and SARS CoV + SARS CoV 2 Ag panel, [place], upper respiratory [id number] 10:26:25 Test Item Value Reference Range Interpretation Comments Influenza A (test code = Presumptive Negative Influenza A) Influenza B (test code = Presumptive Negative Influenza B) SARS-CoV-2 Antigen (test Positive code = SARS-CoV-2 Antigen) [facility]Hem[facility] A1c/Hemoglobin.total in [id number] 00:00:00 Test Item Value Reference Range Interpretation Comments Hemoglobin A1c/Hemoglobin.total in 6.0 % 1.0-5.7 H Blood (test code = 4548-4) average blood glucose (calculation) 126 mg/dL (test code = average blood glucose (calculation)) [facility] A1c/Hemoglobin.total in [id number] 00:00:00 Test Item Value Reference Range Interpretation Comments Hemoglobin A1c/Hemoglobin.total in 6.0 % 1.0-5.7 H Blood (test code = 4548-4) average blood glucose (calculation) 126 mg/dL (test code = average blood glucose (calculation)) [facility] A[facility]c/Hemoglobin.total in [id number] 00:00:00 Test Item Value Reference Range Interpretation Comments Hemoglobin A1c/Hemoglobin.total in 6.0 % 1.0-5.7 H Blood (test code = 4548-4) average blood glucose (calculation) 126 mg/dL (test code = average blood glucose (calculation)) [facility] A1c/Hemoglobin.total in [id number] 00:00:00 Test Item Value Reference Range Interpretation Comments Hemoglobin A1c/Hemoglobin.total in 6.0 % 1.0-5.7 H Blood (test code = 4548-4) average blood glucose (calculation) 126 mg/dL (test code = average blood glucose (calculation)) [facility] HospitalUrinalysis macro (dipstick) panel - [id number] 11:35:00 Test Item Value Reference Range Interpretation Comments Color Color (test code = Color yellow Color) Color Appearance (test code = Color clear Appearance) Color Glucose (test code = Color negative Glucose) Color Bilirubin (test code = Color negative Bilirubin) Color Ketones (test code = Color negative Ketones) Color Specific [place] (test code = 1.015 Color Specific [place]) Color Blood (test code = Color negative Blood) Color PH (test code = Color PH) 6.0 Color Protein (test code = Color negative Protein) Color Urobilinogen (test code = 0.2 Color Urobilinogen) Color Nitrites (test code = Color negative Nitrites) Color Leukocytes (test code = Color negative Leukocytes) [facility] (dipstick) panel - [id number] 11:35:00 Test Item Value Reference Range Interpretation Comments Color Color (test code = Color yellow Color) Color Appearance (test code = Color clear Appearance) Color Glucose (test code = Color negative Glucose) Color Bilirubin (test code = Color negative Bilirubin) Color Ketones (test code = Color negative Ketones) Color Specific [place] (test code = 1.015 Color Specific [place]) Color Blood (test code = Color negative Blood) Color PH (test code = Color PH) 6.0 Color Protein (test code = Color negative Protein) Color Urobilinogen (test code = 0.2 Color Urobilinogen) Color Nitrites (test code = Color negative Nitrites) Color Leukocytes (test code = Color negative Leukocytes) [facility] panel - [id number] 11:35:00 Test Item Value Reference Range Interpretation Comments Color Color (test code = Color yellow Color) Color Appearance (test code = Color clear Appearance) Color Glucose (test code = Color negative Glucose) Color Bilirubin (test code = Color negative Bilirubin) Color Ketones (test code = Color negative Ketones) Color Specific [place] (test code = 1.015 Color Specific [place]) Color Blood (test code = Color negative Blood) Color PH (test code = Color PH) 6.0 Color Protein (test code = Color negative Protein) Color Urobilinogen (test code = 0.2 Color Urobilinogen) Color Nitrites (test code = Color negative Nitrites) Color Leukocytes (test code = Color negative Leukocytes) [facility] (dipstick) panel - [id number] 11:35:00 Test Item Value Reference Range Interpretation Comments Color Color (test code = Color yellow Color) Color Appearance (test code = Color clear Appearance) Color Glucose (test code = Color negative Glucose) Color Bilirubin (test code = Color negative Bilirubin) Color Ketones (test code = Color negative Ketones) Color Specific [place] (test code = 1.015 Color Specific [place]) Color Blood (test code = Color negative Blood) Color PH (test code = Color PH) 6.0 Color Protein (test code = Color negative Protein) Color Urobilinogen (test code = 0.2 Color Urobilinogen) Color Nitrites (test code = Color negative Nitrites) Color Leukocytes (test code = Color negative Leukocytes) [facility] W Auto Differential panel - [id number] 00:00:00 Test Item Value Reference Range Interpretation Comments WBC (test code = WBC) 7.14 x10*3/?L 4.00-11.00 RBC (test code = RBC) 4.89 10*12/L 3.93-5.22 hemoglobin (test code = 12.00 g/dL 11.20-15.70 hemoglobin) hematocrit (test code = 39.8 % 34.1-44.9 hematocrit) MCV (test code = MCV) 81.4 fL 80.0-100.0 MCH (test code = MCH) 24.5 pg 25.6-32.2 L MCHC (test code = MCHC) 30.2 g/dL 32.2-35.5 L RDW-SD (test code = RDW-SD) 45.7 fL 36.4-46.3 platelet count (test code = 408.0 k/uL 150.0-400.0 H platelet count) MPV (test code = MPV) 10.4 fL 7.5-11.5 neut% (test code = neut%) 46.6 % 34.0-71.1 lymph% (test code = lymph%) 40.9 % 19.3-51.7 mon% (test code = mon%) 8.5 % 4.7-12.5 eos% (test code = eos%) 2.7 % 0.7-5.8 baso% (test code = baso%) 1.0 % 0.1-1.2 neut# (test code = neut#) 3.3 x10*3/?L 1.6-6.1 lymph# (test code = lymph#) 2.9 x10*3/?L 1.2-3.7 mon# (test code = mon#) 0.6 x10*3/?L 0.2-0.9 eos# (test code = eos#) 0.19 x10*3/?L 0.04-0.36 baso# (test code = baso#) 0.07 x10*3/?L 0.01-0.08 [facility] - Serum or Plasma 2021-02-25 00:00:00 Test Item Value Reference Range Interpretation Comments ALT (test code = ALT) 25 U/L 0-55 AST (test code = AST) 21 U/L 5-34 BUN (test code = BUN) 8.9 mg/dL 7.0-25.0 alk phos (test code = alk phos) 53 unit/L 40-150 glucose (test code = glucose) 102 mg/dL 70-99 H albumin (test code = albumin) 4.1 g/dL 3.4-5.1 creatinine (test code = 0.71 mg/dL 0.57-1.11 creatinine) eGFR non- (test >60 code = eGFR non-) total bilirubin (test code = 0.4 mg/dL 0.2-1.2 total bilirubin) eGFR - (test >60 code = eGFR - ) sodium (test code = sodium) 138 mEq/L 135-145 potassium (test code = potassium) 4.7 mEq/L 3.5-5.3 chloride (test code = chloride) 102 mmol/L 98-110 total protein (test code = total 7.8 g/dL 6.1-8.2 protein) calcium (test code = calcium) 10.3 mg/dL 8.4-10.4 CO2 (test code = CO2) 28.0 mmol/L 20.0-32.0 anion gap (test code = anion gap) 8 calc [facility] - Serum or [id number] 00:00:00 Test Item Value Reference Range Interpretation Comments HDL (test code = HDL) 38 mg/dL L triglyceride (test code = 162 mg/dL <150 H triglyceride) VLDL (calculated) (test code = VLDL 32 mg/dL (calculated)) cholesterol/HDL ratio (test code = 4.9 mg/dL cholesterol/HDL ratio) non-HDL cholesterol (calculated) 149 mg/dL <160 (test code = non-HDL cholesterol (calculated)) cholesterol (test code = 187 mg/dL <200 cholesterol) Cholesterol in LDL [Mass/volume] in 117 mg/dL <130 Serum or Plasma (test code = 2089-1) [facility] HospitalThyrotropin [Units/volume] in Serum or [id number] 00:00:00 Test Item Value Reference Range Interpretation Comments TSH (test code = TSH) 1.161 uIU/mL 0.350-4.940 [facility] HospitalCBC W Auto Differential panel - [id number] 00:00:00 Test Item Value Reference Range Interpretation Comments WBC (test code = WBC) 7.14 x10*3/?L 4.00-11.00 RBC (test code = RBC) 4.89 10*12/L 3.93-5.22 hemoglobin (test code = 12.00 g/dL 11.20-15.70 hemoglobin) hematocrit (test code = 39.8 % 34.1-44.9 hematocrit) MCV (test code = MCV) 81.4 fL 80.0-100.0 MCH (test code = MCH) 24.5 pg 25.6-32.2 L MCHC (test code = MCHC) 30.2 g/dL 32.2-35.5 L RDW-SD (test code = RDW-SD) 45.7 fL 36.4-46.3 platelet count (test code = 408.0 k/uL 150.0-400.0 H platelet count) MPV (test code = MPV) 10.4 fL 7.5-11.5 neut% (test code = neut%) 46.6 % 34.0-71.1 lymph% (test code = lymph%) 40.9 % 19.3-51.7 mon% (test code = mon%) 8.5 % 4.7-12.5 eos% (test code = eos%) 2.7 % 0.7-5.8 baso% (test code = baso%) 1.0 % 0.1-1.2 neut# (test code = neut#) 3.3 x10*3/?L 1.6-6.1 lymph# (test code = lymph#) 2.9 x10*3/?L 1.2-3.7 mon# (test code = mon#) 0.6 x10*3/?L 0.2-0.9 eos# (test code = eos#) 0.19 x10*3/?L 0.04-0.36 baso# (test code = baso#) 0.07 x10*3/?L 0.01-0.08 [facility] - Serum or Plasma 2021-02-25 00:00:00 Test Item Value Reference Range Interpretation Comments ALT (test code = ALT) 25 U/L 0-55 AST (test code = AST) 21 U/L 5-34 BUN (test code = BUN) 8.9 mg/dL 7.0-25.0 alk phos (test code = alk phos) 53 unit/L 40-150 glucose (test code = glucose) 102 mg/dL 70-99 H albumin (test code = albumin) 4.1 g/dL 3.4-5.1 creatinine (test code = 0.71 mg/dL 0.57-1.11 creatinine) eGFR non- (test >60 code = eGFR non-) total bilirubin (test code = 0.4 mg/dL 0.2-1.2 total bilirubin) eGFR - (test >60 code = eGFR - ) sodium (test code = sodium) 138 mEq/L 135-145 potassium (test code = potassium) 4.7 mEq/L 3.5-5.3 chloride (test code = chloride) 102 mmol/L 98-110 total protein (test code = total 7.8 g/dL 6.1-8.2 protein) calcium (test code = calcium) 10.3 mg/dL 8.4-10.4 CO2 (test code = CO2) 28.0 mmol/L 20.0-32.0 anion gap (test code = anion gap) 8 calc [facility] panel - Serum or [id number] 00:00:00 Test Item Value Reference Range Interpretation Comments HDL (test code = HDL) 38 mg/dL L triglyceride (test code = 162 mg/dL <150 H triglyceride) VLDL (calculated) (test code = VLDL 32 mg/dL (calculated)) cholesterol/HDL ratio (test code = 4.9 mg/dL cholesterol/HDL ratio) non-HDL cholesterol (calculated) 149 mg/dL <160 (test code = non-HDL cholesterol (calculated)) cholesterol (test code = 187 mg/dL <200 cholesterol) Cholesterol in LDL [Mass/volume] in 117 mg/dL <130 Serum or Plasma (test code = 2089-1) [facility]Thyrotropin [Units/volume] in Serum or [id number] 00:00:00 Test Item Value Reference Range Interpretation Comments TSH (test code = TSH) 1.161 uIU/mL 0.350-4.940 [facility]CBC [facility] Auto Differential panel - [id number] 00:00:00 Test Item Value Reference Range Interpretation Comments WBC (test code = WBC) 7.14 x10*3/?L 4.00-11.00 RBC (test code = RBC) 4.89 10*12/L 3.93-5.22 hemoglobin (test code = 12.00 g/dL 11.20-15.70 hemoglobin) hematocrit (test code = 39.8 % 34.1-44.9 hematocrit) MCV (test code = MCV) 81.4 fL 80.0-100.0 MCH (test code = MCH) 24.5 pg 25.6-32.2 L MCHC (test code = MCHC) 30.2 g/dL 32.2-35.5 L RDW-SD (test code = RDW-SD) 45.7 fL 36.4-46.3 platelet count (test code = 408.0 k/uL 150.0-400.0 H platelet count) MPV (test code = MPV) 10.4 fL 7.5-11.5 neut% (test code = neut%) 46.6 % 34.0-71.1 lymph% (test code = lymph%) 40.9 % 19.3-51.7 mon% (test code = mon%) 8.5 % 4.7-12.5 eos% (test code = eos%) 2.7 % 0.7-5.8 baso% (test code = baso%) 1.0 % 0.1-1.2 neut# (test code = neut#) 3.3 x10*3/?L 1.6-6.1 lymph# (test code = lymph#) 2.9 x10*3/?L 1.2-3.7 mon# (test code = mon#) 0.6 x10*3/?L 0.2-0.9 eos# (test code = eos#) 0.19 x10*3/?L 0.04-0.36 baso# (test code = baso#) 0.07 x10*3/?L 0.01-0.08 [facility] - Serum or Plasma 2021-02-25 00:00:00 Test Item Value Reference Range Interpretation Comments ALT (test code = ALT) 25 U/L 0-55 AST (test code = AST) 21 U/L 5-34 BUN (test code = BUN) 8.9 mg/dL 7.0-25.0 alk phos (test code = alk phos) 53 unit/L 40-150 glucose (test code = glucose) 102 mg/dL 70-99 H albumin (test code = albumin) 4.1 g/dL 3.4-5.1 creatinine (test code = 0.71 mg/dL 0.57-1.11 creatinine) eGFR non- (test >60 code = eGFR non-) total bilirubin (test code = 0.4 mg/dL 0.2-1.2 total bilirubin) eGFR - (test >60 code = eGFR - ) sodium (test code = sodium) 138 mEq/L 135-145 potassium (test code = potassium) 4.7 mEq/L 3.5-5.3 chloride (test code = chloride) 102 mmol/L 98-110 total protein (test code = total 7.8 g/dL 6.1-8.2 protein) calcium (test code = calcium) 10.3 mg/dL 8.4-10.4 CO2 (test code = CO2) 28.0 mmol/L 20.0-32.0 anion gap (test code = anion gap) 8 calc [facility] - Serum or [id number] 00:00:00 Test Item Value Reference Range Interpretation Comments HDL (test code = HDL) 38 mg/dL L triglyceride (test code = 162 mg/dL <150 H triglyceride) VLDL (calculated) (test code = VLDL 32 mg/dL (calculated)) cholesterol/HDL ratio (test code = 4.9 mg/dL cholesterol/HDL ratio) non-HDL cholesterol (calculated) 149 mg/dL <160 (test code = non-HDL cholesterol (calculated)) cholesterol (test code = 187 mg/dL <200 cholesterol) Cholesterol in LDL [Mass/volume] in 117 mg/dL <130 Serum or Plasma (test code = 2089-1) [facility]Thy[facility]in [Units/volume] in Serum or [id number] 00:00:00 Test Item Value Reference Range Interpretation Comments TSH (test code = TSH) 1.161 uIU/mL 0.350-4.940 [facility]CBC [facility] Auto Differential panel - [id number] 00:00:00 Test Item Value Reference Range Interpretation Comments WBC (test code = WBC) 7.14 x10*3/?L 4.00-11.00 RBC (test code = RBC) 4.89 10*12/L 3.93-5.22 hemoglobin (test code = 12.00 g/dL 11.20-15.70 hemoglobin) hematocrit (test code = 39.8 % 34.1-44.9 hematocrit) MCV (test code = MCV) 81.4 fL 80.0-100.0 MCH (test code = MCH) 24.5 pg 25.6-32.2 L MCHC (test code = MCHC) 30.2 g/dL 32.2-35.5 L RDW-SD (test code = RDW-SD) 45.7 fL 36.4-46.3 platelet count (test code = 408.0 k/uL 150.0-400.0 H platelet count) MPV (test code = MPV) 10.4 fL 7.5-11.5 neut% (test code = neut%) 46.6 % 34.0-71.1 lymph% (test code = lymph%) 40.9 % 19.3-51.7 mon% (test code = mon%) 8.5 % 4.7-12.5 eos% (test code = eos%) 2.7 % 0.7-5.8 baso% (test code = baso%) 1.0 % 0.1-1.2 neut# (test code = neut#) 3.3 x10*3/?L 1.6-6.1 lymph# (test code = lymph#) 2.9 x10*3/?L 1.2-3.7 mon# (test code = mon#) 0.6 x10*3/?L 0.2-0.9 eos# (test code = eos#) 0.19 x10*3/?L 0.04-0.36 baso# (test code = baso#) 0.07 x10*3/?L 0.01-0.08 [facility] - Serum or Plasma 2021-02-25 00:00:00 Test Item Value Reference Range Interpretation Comments ALT (test code = ALT) 25 U/L 0-55 AST (test code = AST) 21 U/L 5-34 BUN (test code = BUN) 8.9 mg/dL 7.0-25.0 alk phos (test code = alk phos) 53 unit/L 40-150 glucose (test code = glucose) 102 mg/dL 70-99 H albumin (test code = albumin) 4.1 g/dL 3.4-5.1 creatinine (test code = 0.71 mg/dL 0.57-1.11 creatinine) eGFR non- (test >60 code = eGFR non-) total bilirubin (test code = 0.4 mg/dL 0.2-1.2 total bilirubin) eGFR - (test >60 code = eGFR - ) sodium (test code = sodium) 138 mEq/L 135-145 potassium (test code = potassium) 4.7 mEq/L 3.5-5.3 chloride (test code = chloride) 102 mmol/L 98-110 total protein (test code = total 7.8 g/dL 6.1-8.2 protein) calcium (test code = calcium) 10.3 mg/dL 8.4-10.4 CO2 (test code = CO2) 28.0 mmol/L 20.0-32.0 anion gap (test code = anion gap) 8 calc [facility] - Serum or [id number] 00:00:00 Test Item Value Reference Range Interpretation Comments HDL (test code = HDL) 38 mg/dL L triglyceride (test code = 162 mg/dL <150 H triglyceride) VLDL (calculated) (test code = VLDL 32 mg/dL (calculated)) cholesterol/HDL ratio (test code = 4.9 mg/dL cholesterol/HDL ratio) non-HDL cholesterol (calculated) 149 mg/dL <160 (test code = non-HDL cholesterol (calculated)) cholesterol (test code = 187 mg/dL <200 cholesterol) Cholesterol in LDL [Mass/volume] in 117 mg/dL <130 Serum or Plasma (test code = 2089-1) [facility] [Units/volume] in Serum or [id number] 00:00:00 Test Item Value Reference Range Interpretation Comments TSH (test code = TSH) 1.161 uIU/mL 0.350-4.940 [facility] HospitalGy[facility] Test (Image-guided), Liquid-based Preparation and Human Papillomavirus (HPV) (Aptima) Detection With Reflex to HPV Genotypes 16 and 18,45 on High-risk Positive [id number] 14:11:00 Test Item Value Reference Range Interpretation Comments Diagnosis (test Comment NEGATIVE FOR code = 15229-5) INTRAEPITHEL IAL LESION OR MALIGNANCY. Specimen adequacy Comment Satisfacto ry for (test code = evaluation. 35466-3) Endocervical an d/or squamous metaplasticcell s (endocervical component) are present. Performed by: Comment Kaycee Fernandez, (test code = Cytotechnologis t (ASCP) ) Comment (test . code = 21668-3) Note: (test code Comment The Pap sme ar is a = 9013056) screening test designed to aid in the d etection ofpremalignant and malignant condi tions of the uterine cer vix. It is not adiagnos tic procedure and s hould not be used as the sole means of detectingcervic al cancer. Both false-positive and false-negative reports do occur. Test methodology Comment This liquid based (test code = ThinPrep(R) pap test 84094-6) was screened wi th theuse of an im age guided system. HPV Aptima (test Negative Negative This nuclei c acid code = 59091-5) amplificatio n test detects fourtee n high-riskHPV ty pes (16,18,31,33,35 ,39,45,5 1,52,56,58,59,6 6,68) withoutdifferen tiation. SANIYA (test code = Performed at: SANIYA) 01 - [facility] [address] [place], [place] [id number] Director: Cedrick Arias MD, Phone: [phone] rmed at: 02 - [facility] [place], [place] [id number] Director: Cedrick Arias MD, Phone: [phone] men Comment: No. of containers..01 [facility] 1999 panel - Serum or [id number] 16:36:00 Test Item Value Reference Range Interpretation Comments ALT (test code = ALT) 28 U/L 0-55 AST (test code = AST) 23 U/L 5-34 BUN (test code = BUN) 9.2 mg/dL 7.0-25.0 alk phos (test code = alk phos) 61 unit/L 40-150 glucose (test code = glucose) 100 mg/dL 70-99 H albumin (test code = albumin) 4.0 g/dL 3.4-5.1 creatinine (test code = 0.73 mg/dL 0.57-1.11 creatinine) eGFR non- (test >60 code = eGFR non-) total bilirubin (test code = 0.3 mg/dL 0.2-1.2 total bilirubin) eGFR - (test >60 code = eGFR - ) sodium (test code = sodium) 138 mEq/L 135-145 potassium (test code = potassium) 4.1 mEq/L 3.5-5.3 chloride (test code = chloride) 104 mmol/L 98-110 total protein (test code = total 7.5 g/dL 6.1-8.2 protein) calcium (test code = calcium) 8.5 mg/dL 8.6-10.4 L CO2 (test code = CO2) 28.2 mmol/L 20.0-32.0 anion gap (test code = anion gap) 6 calc [facility] Practice[facility]id [facility] panel - Serum or [id number] 16:36:00 Test Item Value Reference Range Interpretation Comments HDL (test code = HDL) 38 mg/dL L triglyceride (test code = 115 mg/dL <150 triglyceride) VLDL (calculated) (test code = VLDL 23 mg/dL (calculated)) cholesterol/HDL ratio (test code = 4.6 mg/dL cholesterol/HDL ratio) non-HDL cholesterol (calculated) 138 mg/dL <160 (test code = non-HDL cholesterol (calculated)) cholesterol (test code = 176 mg/dL <200 cholesterol) Cholesterol in LDL [Mass/volume] in 115 mg/dL <130 Serum or Plasma (test code = 2089-1) [facility]Thy[facility]ropin [Units/volume] in Serum or [id number] 16:36:00 Test Item Value Reference Range Interpretation Comments TSH (test code = TSH) 1.180 uIU/mL 0.350-4.940 [facility] HospitalRwebohpm30-Lvaxfmwqkvsrpo D3+25-Hydroxyvitamin D2 [Mass/volume] in Serum or [id number] 16:36:00 Test Item Value Reference Range Interpretation Comments vitamin D 25OH (test code = 20.7 NG/mL 30.0-96.0 L vitamin D 25OH) [facility]Com[facility] 2000 panel - Serum or Plasma 2020-03-01 16:36:00 Test Item Value Reference Range Interpretation Comments ALT (test code = ALT) 28 U/L 0-55 AST (test code = AST) 23 U/L 5-34 BUN (test code = BUN) 9.2 mg/dL 7.0-25.0 alk phos (test code = alk phos) 61 unit/L 40-150 glucose (test code = glucose) 100 mg/dL 70-99 H albumin (test code = albumin) 4.0 g/dL 3.4-5.1 creatinine (test code = 0.73 mg/dL 0.57-1.11 creatinine) eGFR non- (test >60 code = eGFR non-) total bilirubin (test code = 0.3 mg/dL 0.2-1.2 total bilirubin) eGFR - (test >60 code = eGFR - ) sodium (test code = sodium) 138 mEq/L 135-145 potassium (test code = potassium) 4.1 mEq/L 3.5-5.3 chloride (test code = chloride) 104 mmol/L 98-110 total protein (test code = total 7.5 g/dL 6.1-8.2 protein) calcium (test code = calcium) 8.5 mg/dL 8.6-10.4 L CO2 (test code = CO2) 28.2 mmol/L 20.0-32.0 anion gap (test code = anion gap) 6 calc [facility] 1996 panel - Serum or [id number] 16:36:00 Test Item Value Reference Range Interpretation Comments HDL (test code = HDL) 38 mg/dL L triglyceride (test code = 115 mg/dL <150 triglyceride) VLDL (calculated) (test code = VLDL 23 mg/dL (calculated)) cholesterol/HDL ratio (test code = 4.6 mg/dL cholesterol/HDL ratio) non-HDL cholesterol (calculated) 138 mg/dL <160 (test code = non-HDL cholesterol (calculated)) cholesterol (test code = 176 mg/dL <200 cholesterol) Cholesterol in LDL [Mass/volume] in 115 mg/dL <130 Serum or Plasma (test code = 2089-1) [facility] HospitalThyrotropin [Units/volume] in Serum or [id number] 16:36:00 Test Item Value Reference Range Interpretation Comments TSH (test code = TSH) 1.180 uIU/mL 0.350-4.940 [facility] HospitalSckknief26-Urbbudffsnkhvu D3+25-Hydroxyvitamin D2 [Mass/volume] in Serum or [id number] 16:36:00 Test Item Value Reference Range Interpretation Comments vitamin D 25OH (test code = 20.7 NG/mL 30.0-96.0 L vitamin D 25OH) [facility] HospitalHemoglobin A1c/Hemoglobin.total in [id number] 13:03:00 Test Item Value Reference Range Interpretation Comments Hemoglobin A1c/Hemoglobin.total in 6.0 % 1.0-5.7 H Blood (test code = 4548-4) average blood glucose (calculated) 126 mg/dL (test code = average blood glucose (calculated)) [facility] HospitalHemoglobin A1c/Hemoglobin.total in [id number] 13:03:00 Test Item Value Reference Range Interpretation Comments Hemoglobin A1c/Hemoglobin.total in 6.0 % 1.0-5.7 H Blood (test code = 4548-4) average blood glucose (calculated) 126 mg/dL (test code = average blood glucose (calculated)) [facility] HospitalCB W Auto Differential panel - [id number] 12:43:00 Test Item Value Reference Range Interpretation Comments WBC (test code = WBC) 8.27 x10*3/?L 3.98-10.04 RBC (test code = RBC) 4.66 10*12/L 3.93-5.22 hemoglobin (test code = 11.40 g/dL 11.20-15.70 hemoglobin) hematocrit (test code = 37.2 % 34.1-44.9 hematocrit) MCV (test code = MCV) 79.8 fL 80.0-100.0 L MCH (test code = MCH) 24.5 pg 25.6-32.2 L MCHC (test code = MCHC) 30.6 g/dL 32.2-35.5 L RDW-SD (test code = RDW-SD) 40.1 fL 36.4-46.3 platelet count (test code = 413.0 k/uL 182.0-369.0 H platelet count) MPV (test code = MPV) 10.9 fL 7.5-11.5 neut% (test code = neut%) 54.9 % 34.0-71.1 lymph% (test code = lymph%) 35.3 % 19.3-51.7 mon% (test code = mon%) 7.4 % 4.7-12.5 eos% (test code = eos%) 1.9 % 0.7-5.8 baso% (test code = baso%) 0.5 % 0.1-1.2 neut# (test code = neut#) 4.5 x10*3/?L 1.6-6.1 lymph# (test code = lymph#) 2.9 x10*3/?L 1.2-3.7 mon# (test code = mon#) 0.6 x10*3/?L 0.2-0.9 eos# (test code = eos#) 0.16 x10*3/?L 0.04-0.36 baso# (test code = baso#) 0.04 x10*3/?L 0.01-0.08 [facility] W Auto Differential panel - [id number] 12:43:00 Test Item Value Reference Range Interpretation Comments WBC (test code = WBC) 8.27 x10*3/?L 3.98-10.04 RBC (test code = RBC) 4.66 10*12/L 3.93-5.22 hemoglobin (test code = 11.40 g/dL 11.20-15.70 hemoglobin) hematocrit (test code = 37.2 % 34.1-44.9 hematocrit) MCV (test code = MCV) 79.8 fL 80.0-100.0 L MCH (test code = MCH) 24.5 pg 25.6-32.2 L MCHC (test code = MCHC) 30.6 g/dL 32.2-35.5 L RDW-SD (test code = RDW-SD) 40.1 fL 36.4-46.3 platelet count (test code = 413.0 k/uL 182.0-369.0 H platelet count) MPV (test code = MPV) 10.9 fL 7.5-11.5 neut% (test code = neut%) 54.9 % 34.0-71.1 lymph% (test code = lymph%) 35.3 % 19.3-51.7 mon% (test code = mon%) 7.4 % 4.7-12.5 eos% (test code = eos%) 1.9 % 0.7-5.8 baso% (test code = baso%) 0.5 % 0.1-1.2 neut# (test code = neut#) 4.5 x10*3/?L 1.6-6.1 lymph# (test code = lymph#) 2.9 x10*3/?L 1.2-3.7 mon# (test code = mon#) 0.6 x10*3/?L 0.2-0.9 eos# (test code = eos#) 0.16 x10*3/?L 0.04-0.36 baso# (test code = baso#) 0.04 x10*3/?L 0.01-0.08 [facility] [id number] 12:43:00Rate & RhythmQrsPR IntervalQRS DurationQT IntervalOchsner [facility] [id number] 12:43:00Rate & RhythmQrsPR IntervalQRS DurationQT IntervalO[facility] [place] [id number] 12:43:00Rate & RhythmQrsPR IntervalQRS DurationQT IntervalViJefferson County Health Center PracticeUrinalysis macro (dipstick) panel - [id number] 11:21:00 Test Item Value Reference Range Interpretation Comments Color Color (test code = Color yellow Color) Color Appearance (test code = Color clear Appearance) Color Glucose (test code = Color negative Glucose) Color Bilirubin (test code = Color negative Bilirubin) Color Ketones (test code = Color negative Ketones) Color Specific [place] (test code = 1.030 Color Specific [place]) Color Blood (test code = Color negative Blood) Color PH (test code = Color PH) 6.0 Color Protein (test code = Color negative Protein) Color Urobilinogen (test code = 0.2 Color Urobilinogen) Color Nitrites (test code = Color negative Nitrites) Color Leukocytes (test code = Color negative Leukocytes) [facility] (dipstick) panel - [id number] 11:21:00 Test Item Value Reference Range Interpretation Comments Color Color (test code = Color yellow Color) Color Appearance (test code = Color clear Appearance) Color Glucose (test code = Color negative Glucose) Color Bilirubin (test code = Color negative Bilirubin) Color Ketones (test code = Color negative Ketones) Color Specific [place] (test code = 1.030 Color Specific [place]) Color Blood (test code = Color negative Blood) Color PH (test code = Color PH) 6.0 Color Protein (test code = Color negative Protein) Color Urobilinogen (test code = 0.2 Color Urobilinogen) Color Nitrites (test code = Color negative Nitrites) Color Leukocytes (test code = Color negative Leukocytes) [facility] HospitalUrinalysis macro (dipstick) panel - [id number] 11:21:00 Test Item Value Reference Range Interpretation Comments Color Color (test code = Color yellow Color) Color Appearance (test code = Color clear Appearance) Color Glucose (test code = Color negative Glucose) Color Bilirubin (test code = Color negative Bilirubin) Color Ketones (test code = Color negative Ketones) Color Specific [place] (test code = 1.030 Color Specific [place]) Color Blood (test code = Color negative Blood) Color PH (test code = Color PH) 6.0 Color Protein (test code = Color negative Protein) Color Urobilinogen (test code = 0.2 Color Urobilinogen) Color Nitrites (test code = Color negative Nitrites) Color Leukocytes (test code = Color negative Leukocytes) [facility] HospitalUrinalysis macro (dipstick) panel - [id number] 11:21:00 Test Item Value Reference Range Interpretation Comments Color Color (test code = Color yellow Color) Color Appearance (test code = Color clear Appearance) Color Glucose (test code = Color negative Glucose) Color Bilirubin (test code = Color negative Bilirubin) Color Ketones (test code = Color negative Ketones) Color Specific [place] (test code = 1.030 Color Specific [place]) Color Blood (test code = Color negative Blood) Color PH (test code = Color PH) 6.0 Color Protein (test code = Color negative Protein) Color Urobilinogen (test code = 0.2 Color Urobilinogen) Color Nitrites (test code = Color negative Nitrites) Color Leukocytes (test code = Color negative Leukocytes) [facility] HospitalCB W Auto Differential panel - [id number] 01:12:00 Test Item Value Reference Range Interpretation Comments white blood cell count (test 11.3 thousand/uL 3.8-10.8 H code = white blood cell count) red blood cell count (test 4.70 million/uL 3.80-5.10 code = red blood cell count) hemoglobin (test code = 11.5 g/dL 11.7-15.5 L hemoglobin) hematocrit (test code = 37.2 % 35.0-45.0 hematocrit) MCV (test code = MCV) 79.1 fL 80.0-100.0 L MCH (test code = MCH) 24.5 pg 27.0-33.0 L MCHC (test code = MCHC) 30.9 g/dL 32.0-36.0 L RDW (test code = RDW) 15.7 % 11.0-15.0 H platelet count (test code = 439 thousand/uL 140-400 H platelet count) MPV (test code = MPV) 9.6 fL 7.5-12.5 absolute neutrophils (test 5955 cells/uL 9677-5529 code = absolute neutrophils) absolute lymphocytes (test 4418 cells/uL 850-3900 H code = absolute lymphocytes) absolute monocytes (test 678 cells/uL 200-950 code = absolute monocytes) absolute eosinophils (test 203 cells/uL 15-500 code = absolute eosinophils) absolute basophils (test 45 cells/uL 0-200 code = absolute basophils) neutrophils (test code = 52.7 % neutrophils) lymphocytes (test code = 39.1 % lymphocytes) monocytes (test code = 6.0 % monocytes) eosinophils (test code = 1.8 % eosinophils) basophils (test code = 0.4 % basophils) [facility] HospitalIron and Iron binding capacity panel - Serum or Plasma 2019-07-18 17:59:00 Test Item Value Reference Range Interpretation Comments iron, total (test code = iron, 21 mcg/dL 40-190 L total) transferrin (test code = 447 mg/dL 180-362 H transferrin) total iron binding capacity 639 mcg/dL 250-450 H (calculated) (test code = total iron binding capacity (calculated)) % saturation (test code = % 3.3 % 11.0-50.0 L saturation) [facility] HospitalFolate+Cyanocobalamin [Interpretation] in Serum or Blood 2019-07-18 17:59:00 Test Item Value Reference Range Interpretation Comments folate (test code = folate) >20.0 vitamin B12 (test code = vitamin 352 pg/mL 213-816 B12) [facility] HospitalCBC W Auto Differential panel - [id number] 16:56:00 Test Item Value Reference Range Interpretation Comments WBC (test code = WBC) 11.75 x10*3/?L 3.98-10.04 H RBC (test code = RBC) 4.70 10*12/L 3.93-5.22 hemoglobin (test code = 9.90 g/dL 11.20-15.70 L hemoglobin) hematocrit (test code = 33.5 % 34.1-44.9 L hematocrit) MCV (test code = MCV) 71.3 fL 80.0-100.0 L MCH (test code = MCH) 21.1 pg 25.6-32.2 L MCHC (test code = MCHC) 29.6 g/dL 32.2-35.5 L RDW-SD (test code = RDW-SD) 39.6 fL 36.4-46.3 platelet count (test code = 367.0 k/uL 182.0-369.0 platelet count) MPV (test code = MPV) 9.8 fL 7.5-11.5 neut% (test code = neut%) 50.1 % 34.0-71.1 lymph% (test code = lymph%) 38.8 % 19.3-51.7 mon% (test code = mon%) 8.5 % 4.7-12.5 eos% (test code = eos%) 2.2 % 0.7-5.8 baso% (test code = baso%) 0.4 % 0.1-1.2 neut# (test code = neut#) 5.9 x10*3/?L 1.6-6.1 lymph# (test code = lymph#) 4.6 x10*3/?L 1.2-3.7 H mon# (test code = mon#) 1.0 x10*3/?L 0.2-0.9 H eos# (test code = eos#) 0.26 x10*3/?L 0.04-0.36 baso# (test code = baso#) 0.05 x10*3/?L 0.01-0.08 [facility]Com[facility] 2000 panel - Serum or Plasma 2019-07-11 17:06:00 Test Item Value Reference Range Interpretation Comments ALT (test code = ALT) 30 U/L 0-55 AST (test code = AST) 25 U/L 5-34 BUN (test code = BUN) 8.4 mg/dL 7.0-25.0 alk phos (test code = alk phos) 66 unit/L 40-150 glucose (test code = glucose) 99 mg/dL 70-99 albumin (test code = albumin) 3.9 g/dL 3.4-5.1 creatinine (test code = 0.70 mg/dL 0.57-1.11 creatinine) eGFR non- (test >60 code = eGFR non-) total bilirubin (test code = 0.2 mg/dL 0.2-1.2 total bilirubin) eGFR - (test >60 code = eGFR - ) sodium (test code = sodium) 134 mEq/L 135-145 L potassium (test code = potassium) 3.9 mEq/L 3.5-5.3 chloride (test code = chloride) 99 mmol/L 98-110 total protein (test code = total 7.7 g/dL 6.1-8.2 protein) calcium (test code = calcium) 9.2 mg/dL 8.6-10.4 CO2 (test code = CO2) 25.6 mmol/L 20.0-32.0 anion gap (test code = anion gap) 9 [facility]
[2022-03-05 13:06] LABS: Urine Blood Negative (Negative); Urine Glucose Negative (Negative); Urine Protein Negative (Negative); Urine Specific Gravity 1.015 (1.005-1.030); Urine pH 5.5 (5.0-7.0)
[2022-03-05] MEDS ORDERED: ONDANSETRON 4 MG/2 ML VIAL ONE (13:08)
[2022-03-05] MEDS ORDERED: NA CHLORIDE 0.9% 1,000 ML ONE (13:08)
[2022-03-05 13:12] LABS: Hematocrit 39.6 % (36.0-45.0); Lymphocytes % 24.4 % (15.3-44.8); MCV 78.1 fL (80-100); MPV 7.8 fL (7.6-11.3); RBC Red Blood Cell Count 5.08 M/uL (3.86-4.86)
[2022-03-05 13:29] LABS: Albumin 3.6 g/dL (3.4-5.0); Bilirubin Total 0.3 mg/dL (0.2-1.0); Potassium 3.8 mmol/L (3.5-5.1); Protein, Total 8.1 g/dL (6.4-8.2)
--- NOTE | 2022-03-05 14:06 | RAD REPORT ---
EXAM DESCRIPTION: CT - Abdomen Pelvis W Contrast - 03/05/2022 1:46 pm CLINICAL HISTORY: lower abdominal pain, fever COMPARISON: <Comparisons> TECHNIQUE: Biphasic, helical CT imaging of the abdomen and pelvis was performed following 100 ml non -ionic IV contrast. Oral contrast: No. All CT scans are performed using dose optimization technique as appropriate and may include automated exposure control or mA/KV adjustment according to patient size. FINDINGS: Patchy airspace opacities are present at the base of the right middle lobe and right lower lobe typical for pneumonia. No pneumothorax or pleural effusion. No cardiomegaly or pericardial effu wilber. In the The liver, spleen, and pancreas show no suspicious findings. Gallbladder and biliary tree are also wi thout suspicious finding. Symmetric renal function is seen with no hydronephrosis or suspicious renal mass. No pyelonephritis o r acute parenchymal process. No bladder abnormalities. No adrenal abnormalities. Uterus is absent. Le ft ovary within range of normal. Right ovary contains a 4.9 centimeter fluid attenuation cyst. No sep tation or mural nodule seen. Normal ovarian tissue drapes margin of this cyst. No cyst rupture or hem orrhage findings seen. No stomach or small bowel abnormality seen. Appendectomy clips seen at the tip of the cecum. No acute colon finding. No free air, free fluid or inflammatory stranding. No hernia, mass or bulky lymphad enopathy. No suspicious bony findings. IMPRESSION: Patchy pneumonia findings are seen in the right middle lobe and right lower lobe only pa rtially imaged on this study. A 4.9 centimeter right ovarian cyst is present without rupture or hemorrhage findings. This appears t o be benign but can be followed with sonography in 2-3 months to assure involution.
[2022-03-05] MEDS ORDERED: CEFTRIAXONE 1000 MG/VIAL ONE (15:29)
[2022-03-05] MEDS ORDERED: NA CHLORIDE 0.9% 50 ML IV ONE (15:29)
--- NOTE | 2022-03-05 15:42 | ER ---
Nurse's Notes [facility] Name: Alannah Christine Age: 31 yrs Sex: Female : 1990 Arrival Date: 03/05/2022 Time: 12:32 Bed 12 Private MD: Diagnosis: Community-acquired pneumonia Presentation: 03/05 12:36 Chief complaint: Body aches, bilateral ear a=pain, cough, and headache x 1 week, hb urinary incontinence and pain suprapubic pain x 2-3 days. Coronavirus screen: Client presents with at least one sign or symptom that may indicate coronavirus-19. Standard/surgical mask placed on the client. Provider contacted for isolation considerations. Ebola Screen: No symptoms or risks identified at this time. Initial Sepsis Screen: Does the patient meet any 2 criteria? No. Patient's initial sepsis screen is negative. Does the patient have a suspected source of infection? No. Patient's initial sepsis screen is negative. Risk Assessment: Do you want to hurt yourself or someone else? Patient reports no desire to harm self or others. Onset of symptoms was February 27, 2022. 12:36 Method Of Arrival: Ambulatory hb 12:36 Acuity: TIMOTHY 3 hb Historical: - Allergies: 12:37 Latex, Natural Rubber; hb - PMHx: 12:37 Anemia; hb - Immunization history:: Adult Immunizations up to date. - Social history:: Smoking status: Patient denies any tobacco usage or history of. Screenin:10 [facility] ED Fall Risk Assessment (Adult) Score/Fall Risk Level 0 - 2 = Low Risk hb Oriented to surroundings, Maintained a safe environment, Hourly rounding (assess needs \T\ fall precautionary measures) done. Abuse screen: Denies threats or abuse. Denies injuries from another. Nutritional screening: No deficits noted. Tuberculosis screening: No symptoms or risk factors identified. Fall Risk Total Sosa Fall Scale indicates No Risk (0-24 pts). Assessment: 13:10 General: Appears in no apparent distress. Behavior is calm, cooperative. Pain: Pain hb currently is 8 out of 10 on a pain scale. Neuro: Level of Consciousness is awake, alert, obeys commands, Oriented to person, place, time, situation. Cardiovascular: Patient's skin is warm and dry. Respiratory: Respiratory effort is even, unlabored, Respiratory pattern is regular, symmetrical. GI: Reports lower abdominal pain, nausea. : Reports pain in suprapubic area with urination. EENT: No signs and/or symptoms were reported regarding the EENT system. Derm: Skin is pink, warm \T\ dry. Musculoskeletal: No signs and/or symptoms reported regarding the musculoskeletal system. 14:14 Reassessment: Patient appears in no apparent distress at this time. Patient and/or hb family updated on plan of care and expected duration. Pain level reassessed. Patient is alert, oriented x 3, equal unlabored respirations, skin warm/dry/pink. 15:26 Reassessment: Patient appears in no apparent distress at this time. Patient and/or hb family updated on plan of care and expected duration. Pain level reassessed. Patient is alert, oriented x 3, equal unlabored respirations, skin warm/dry/pink. Vital Signs: 12:36 BP 159 / 101; Pulse 95; Resp 16; Temp 98.3; Pulse Ox 98% on R/A; Weight 120.2 kg; hb Height 5 ft. 5 in. (165.10 cm); Pain 8/10; 14:15 BP 148 / 88; Pulse 89; Resp 16; Pulse Ox 99% on R/A; hb 12:36 Body Mass Index 44.10 (120.20 kg, 165.10 cm) hb ED Course: 12:32 Patient arrived in ED. rg4 12:34 Cuauhtemoc Rubin PA is PHCP. jmm 12:34 Niko Soto MD is Attending Physician. jmm 12:37 Triage completed. hb 12:37 Arm band placed on. hb 12:59 Maru Andrade, ERIC is Primary Nurse. hb 13:01 Inserted saline lock: 20 gauge in right antecubital area, using aseptic technique. hb Blood collected. 13:10 Patient has correct armband on for positive identification. hb 13:48 CT Abd/Pelvis - IV Contrast Only In Process Unspecified. EDMS 16:03 No provider procedures requiring assistance completed. IV discontinued, intact, hb bleeding controlled, No redness/swelling at site. Administered Medications: 13:09 Drug: Zofran (Ondansetron) 4 mg Route: IVP; Site: right antecubital; hb 13:35 Follow up: Response: No adverse reaction hb 13:10 Drug: NS 0.9% 1000 ml Route: IV; Rate: 1 bolus; Site: right antecubital; hb 14:10 Follow up: Response: No adverse reaction; IV Status: Completed infusion; IV Intake: hb 1000ml 15:27 Not Given (Other Intervention Used): Rocephin (cefTRIAXone) 1 grams IV at calculated ss rate once; Given slow IV push per pharmacy instructions 15:34 Drug: Rocephin - (cefTRIAXone) 1 grams Route: IVPB; Infused Over: 30 mins; Site: right ss antecubital; 16:05 Follow up: Response: No adverse reaction; IV Status: Completed infusion; IV Intake: 50mlhb Medication: 13:10 VIS not applicable for this client. hb Intake: 14:10 IV: 1000ml; Total: 1000ml. hb 16:05 IV: 50ml; Total: 1050ml. hb Outcome: 15:42 Discharge ordered by . jami 16:03 Discharged to home ambulatory. hb 16:03 Condition: stable 16:03 Discharge instructions given to patient, Instructed on discharge instructions, follow up and referral plans. medication usage, Demonstrated understanding of instructions, follow-up care, medications, Prescriptions given X 2. 16:04 Patient left the ED. hb Signatures: Dispatcher [employer] EDMS Cuauhtemoc Rubin PA PA jmm Smirch, Shelby, RN RN ss Baxter, Heather, RN RN hb Garcia, Rubi rg4 Corrections: (The following items were deleted from the chart) 13:05 12:36 Acuity: TIMOTHY 4 hb hb
--- NOTE | 2022-03-05 15:42 | EDPHYS ---
Physician Documentation [facility] Name: Alannah Christien Age: 31 yrs Sex: Female : 1990 Arrival Date: 03/05/2022 Time: 12:32 Bed 12 Private MD: ED Physician Niko Soto HPI: 03/05 12:56 This 31 yrs old Female presents to ER via Ambulatory with complaints of Flu jmm Symptoms, Abdominal Pain. 12:56 The patient or guardian reports cough. Onset: The symptoms/episode began/occurred jmm gradually, 3 week(s) ago. This is a 31 year old female with a history of anemia that presents to the ED with complaints of cough, congestion beginning approx 2 to 3 weeks ago. Patient states she developed fever 3 days ago and was prescribed Augmentin by pcp. Patient states she now has lower abdominal pain as well. Historical: - Allergies: 12:37 Latex, Natural Rubber; hb - PMHx: 12:37 Anemia; hb - Immunization history:: Adult Immunizations up to date. - Social history:: Smoking status: Patient denies any tobacco usage or history of. ROS: 12:56 Constitutional: Positive for fever. jmm 12:56 Respiratory: Positive for cough. 12:56 Abdomen/GI: Positive for abdominal pain, nausea. 12:56 All other systems are negative. Exam: 12:56 Constitutional: This is a well developed, well nourished patient who is awake, alert, jmm and in no acute distress. Head/Face: atraumatic. Eyes: EOMI, no conjunctival erythema appreciated ENT: Moist Mucus Membranes Neck: Trachea midline, Supple Chest/axilla: Normal chest wall appearance and motion. Cardiovascular: Regular rate and rhythm. No edema appreciated Respiratory: Normal respirations, no respiratory distress appreciated Abdomen/GI: Non distended Back: Normal ROM Skin: General appearance color normal MS/ Extremity: Moves all extremities, no obvious deformities appreciated, no edema noted to the lower extremities Neuro: Awake and alert Psych: Behavior is normal, Mood is normal, Patient is cooperative and pleasant 12:56 Abdomen/GI: Palpation: soft, mild abdominal tenderness, in the suprapubic area, right lower quadrant and left lower quadrant. Vital Signs: 12:36 BP 159 / 101; Pulse 95; Resp 16; Temp 98.3; Pulse Ox 98% on R/A; Weight 120.2 kg; hb Height 5 ft. 5 in. (165.10 cm); Pain 8/10; 14:15 BP 148 / 88; Pulse 89; Resp 16; Pulse Ox 99% on R/A; hb 12:36 Body Mass Index 44.10 (120.20 kg, 165.10 cm) hb MDM: 12:57 Patient medically screened. rj 15:23 Data reviewed: vital signs, nurses notes. Counseling: I had a detailed discussion with jami the patient and/or guardian regarding: the historical points, exam findings, and any diagnostic results supporting the discharge/admit diagnosis, the need for outpatient follow up, to return to the emergency department if symptoms worsen or persist or if there are any questions or concerns that arise at home. 03/05 12:55 Order name: Flu; Complete Time: 13:50 [email or web address] 03/05 12:56 Order name: CBC with Diff; Complete Time: 13:42 [email or web address] 03/05 12:56 Order name: CMP; Complete Time: 13:42 [email or web address] 03/05 12:56 Order name: Lipase; Complete Time: 13:42 [email or web address] 03/05 13:06 Order name: Urine Dipstick-Ancillary; Complete Time: 13:42 EDMS 03/05 13:08 Order name: Urine --Ancillary (enter results) eb 03/05 12:56 Order name: IV Saline Lock; Complete Time: 13:05 [email or web address] 03/05 12:56 Order name: Labs collected and sent; Complete Time: 13:05 [email or web address] 03/05 13:01 Order name: CT Abd/Pelvis - IV Contrast Only; Complete Time: 14:14 [facility] Administered Medications: 13:09 Drug: Zofran (Ondansetron) 4 mg Route: IVP; Site: right antecubital; hb 13:35 Follow up: Response: No adverse reaction hb 13:10 Drug: NS 0.9% 1000 ml Route: IV; Rate: 1 bolus; Site: right antecubital; hb 14:10 Follow up: Response: No adverse reaction; IV Status: Completed infusion; IV Intake: hb 1000ml 15:27 Not Given (Other Intervention Used): Rocephin (cefTRIAXone) 1 grams IV at calculated ss rate once; Given slow IV push per pharmacy instructions 15:34 Drug: Rocephin - (cefTRIAXone) 1 grams Route: IVPB; Infused Over: 30 mins; Site: right ss antecubital; 16:05 Follow up: Response: No adverse reaction; IV Status: Completed infusion; IV Intake: 50mlhb Disposition Summary: 03/05/22 15:42 Discharge Ordered Location: Home [facility] Condition: Stable [facility] Diagnosis - Community-acquired pneumonia [facility] Followup: [facility] - With: Private Physician - When: 2 - 3 days - Reason: Recheck today's complaints, Continuance of care, Re-evaluation by your physician Discharge Instructions: - Discharge Summary Sheet [facility] - Community-Acquired Pneumonia, Adult [facility] Forms: - Medication Reconciliation Form [facility] - Work release form [facility] - Thank You Letter [facility] - Antibiotic Education [facility] - Prescription Opioid Use [facility] Prescriptions: - cefdinir 300 mg Oral capsule - take 1 capsule by ORAL route every 12 hours for 10 days; 20 capsule; Refills: jm 0, Product Selection Permitted - Zithromax Z-Memo 250 mg Oral Tablet - take 1 tablet by ORAL route as directed for 5 days Day 1 - take two (2) tablets [facility] one time. Day 2, 3, 4 , 5 take one (1) tablet once daily.; 6 tablet; Refills: 0, Product Selection Permitted Signatures: Dispatcher [employer] EDCuauhtemoc Mathur PA PA jmm Smirch, Shelby, RN RN ss Baxter, Heather, RN RN Maira Glass [email or web address]
[2022-03-05 16:08] VITALS: TEMP 98.3
[2022-03-05 16:09] VITALS: BP 148/88; O2SAT 99
[2022-03-05 16:10] LABS: Urine Specific Gravity/Preg 1.015 (1.005-1.030)
== END 2022-03-05 16:04 | disposition home or self-care (01) ==
LOC: ER 12:27
DX: J18.9 Pneumonia, unspecified organism (principal); Z91.040 Latex allergy status; Z91.048 Other nonmedicinal substance allergy status
CPT/HCPCS: 96365; 96361; 85025; 36415; 81025; 81003; 83690; 80053; 87804 ×2; 74177; 96375; 99284; Q9967; J7030; J2405

== ENCOUNTER 2022-12-26 23:43 | Emergency (ER) | payer OTHER ==
--- OUTSIDE RECORDS SUMMARY | 2022-12-26 23:49 | XMS REPORT | Continuity of Care Document ---
:1990 Author Organization [facility] t Address [address] [facility] [address] [facility] [place] [address] Care Team Providers Name Role Phone PCP, PATIENT DOES NOT HAVE A Primary Care Physician Unavailhi Meza_SALEEM Attending Clinician Unavailable Veronica Attending Clinician Unavailable Anabel Roldan MD, I. Attending Clinician Jaqueline Adame LVN Attending Clinician Unavailable Christine Noel Attending Clinician Harrison GRAHAM, Deyanira Ramirez Attending Clinician Phuc BEARDEN, Daniela Whitaker Attending Clinician [phone] Johanna Murguia MD Attending Clinician AJAY CASSIDY Attending Clinician Unavailable Ajay Cassidy MD Attending Clinician Mary Grace Downing LVN Attending Clinician Unavailable Raheel Tripp MD Attending Clinician Leonel BEARDEN, Arianne Grande Attending Clinician [phone] Ulises GRAHAM, Damian Drummond Attending Clinician Beba Attending Clinician Unavailable CAROLINA QUEEN Attending Clinician Unavailable Arcelia Attending Clinician Unavailable Aline Admitting Clinician Unavailable Veronica Admitting Clinician Unavailable ANABEL ROLDAN Admitting Clinician Unavailable AJAY CASSIDY Admitting Clinician Unavailable JOHANNA MURGUIA Admitting Clinician Unavailable Beba Admitting Clinician Unavailable Arcelia Admitting Clinician Unavailable Payers Payer Name Policy Type Policy Number Effective Date Expiration Date Mi fisher [facility] [id number] 2020 (PPO) 00:00:00 [facility] [id number] 2021 00:00:00 [place] [id number] 2019 2020 00:00:00 00:00:00 Problems Condition Condition [...] M ethodi a with a with 12-03 regular regular 00:00: Hospita cycle cycle 00 [...] ents Source Name Type Date Date Clinician Bandar, Propensi Active Swelling 2019-03 Method i Natural ty to 03-27 st Rubber adverse 00:00: Hospita reaction 00 l s to drug NO KNOWN Drug Active Univers ALLERGIE Class [facility] LATEX, Allergy Active [place] NATURAL to Family RUBBER substanc Practic e e Family History Family Member Diagnosis Comments Start Date Stop Date Source Natural mother Cervical cancer [facility] Natural mother Diabetes [facility] Natural [facility] Hy[facility] Social History Social Habit Start Date Stop Date Quantity Comments Source [facility] History of Social 2022-05-27 2022-05-[address] function 00:00:00 00:00:00 Hospital Alcohol intake 2021-12-26 2021-12-26 Ex-drinker [facility] 00:00:00 00:00:00 (finding) Hospital Exposure to 2021-10-12 2021-10-22 Not sure [facility] SARS-CoV-2 (event) 00:00:00 04:03:00 [facility] Alcohol Comment 2021-07-04 2021-07-04 socially [facility] 00:00:00 00:00:00 Hospital Tobacco use and 2021-07-04 2021-07-04 Smokeless [facility] exposure 00:00:00 00:00:00 tobacco non-user Hospital History [facility] 2020-02-02 2020-02-02 2 [facility] Alcohol Frequency 00:00:00 00:00:00 Hospita l History [facility] 2020-02-02 2020-02-02 1 [facility] Alcohol Std Drinks 00:00:00 00:00:00 Hospit al History [facility] 2020-02-02 2020-02-02 1 [facility] Alcohol Binge 00:00:00 00:00:00 Hospital Sex Ass[birth year] At [birth year] [facility] 00:00[facility] 00:00:00 [facility] Smoking Status Start Date Stop Date Source Tobacco smoking consumption [facility] Never smoked tobacco [facility] Medications Ordered Filled Start Stop Current Ordering Indication Dosage Frequency Signature Comments Components Source Medication Medication Date Date Medication? Clinician (SIG) Name Name ferrous 2021- No Q24H daily. [facility] sulfate 325 11-2812 st (65 FE) MG 13:49: 00:00 Hospit a tablet 52 :00 l pedi 2021-0 Yes Take by [facility] multivit 11-[address] no.12 11:07: Hospita w-fluoride 08 l (MULTIVITAM INS-FLUORID E-FOLIC A ORAL) famotidine 2021-0 Yes 40mg Q.5D 40 mg 2 Meth felipe (PEPCID) 40 12 (two) st MG tablet 11:07: times a Hospi ta 08 day as l needed. cholecalcif Yes cholecalci [facility] jamie, 11-[address] vitamin D3, 11:07: (vitamin Ho spita 1,250 mcg 08 D3) 1,250 l (50,000 mcg unit) (50,000 capsule unit) capsule TAKE 1 CAPSULE BY MOUTH EVERY WEEK fexofenadin 0 Yes 60mg QD Take 1 Meth felipe e (TANA) 12 tablet (60 st 60 MG 11:07: mg total) Hospita tablet 08 by mouth l daily. pedi Yes Take by [facility] multivit 11-[address] no.12 11:07: Hospita w-fluoride 08 l (MULTIVITAM INS-FLUORID E-FOLIC A ORAL) famotidine 2021-0 Yes 40mg Q.5D 40 mg 2 Meth felipe (PEPCID) 40 11-28 (two) st MG tablet 11:07: times a Hospi ta 08 day as l needed. cholecalcif 0 Yes cholecalci [facility] jamie, 11-[address] vitamin D3, 11:07: (vitamin Ho spita 1,250 mcg 08 D3) 1,250 l (50,000 mcg unit) (50,000 capsule unit) capsule TAKE 1 CAPSULE BY MOUTH EVERY WEEK fexofenadin 2021-0 Yes 60mg QD Take 1 Meth felipe e (TANA) 9-12 tablet (60 st 60 MG 11:07: mg total) Hospita tablet 08 by mouth l daily. ondansetron 2021-0 2021- No Metho di ODT 8 08-28 st (ZOFRAN-ODT 03:07: 00:00 Hospi ta ) 4 MG 18 :00 l disintegrat ing tablet medroxyPROG 2021- No 150mg Q90D Inject 1 [facility] ESTERone 11-13 mL ([address] (DEPO-PROVE 03:07: 00:00 total) Hos olivia RA) 150 18 :00 into the l mg/mL shoulder, injection thigh, or buttocks every 3 (three) months. meloxicam Yes Methodi (MOBIC) 15 - st mg tablet 03:07: Hospita 15 l hydrocortis 0 Yes Method i one 2.5 % 11-13 st cream 03:07: Hospita 15 l meloxicam Yes Method[facility] (MOBIC) 15 - st mg tablet 03:07: Hospita 15 l hydrocortis 0 Yes Method i one 2.5 % 11-13 st cream 03:07: Hospita 15 l ibuprofen 2021- No 800mg Q6H Take 1 Meth felipe (ADVIL) 800 11-[address] MG tablet 00:00: 04:59 (800 [...] up to 30 days. oxyCODONE 2021- No [id number] 5mg Q4H Take 1 Meth felipe (Roxicodone 11-[address] ) 5 MG 00:00: 04:59 mouth Hospita immediate 00 :00 every 4 l release hours as tablet needed for moderate pain for up to 7 days. Max Daily Amount: 30 mg amoxicillin 2021- No 875mg Q12H Take 875 [facility] (AMOXIL) 11-07 08-[address] 875 MG 15:39: 00:00 mouth Hospita tablet 06 :00 every 12 l (twelve) hours. drospirenon 2021- No 1{tbl} QD Take 1 M ethodi e-ethinyl 10-[address] estradioL 00:00: 00:00 mouth Hospit a (CLARITZA) 00 :00 daily. l 3-0.03 mg per tablet iopamidol 2021- No [id number] 60mL 60 mL, U nivers (ISOVUE 10-22 [...] Branch at 0515, IZZY medroxyPROG 2021- No [id number] 150mg [facility] ESTERone 6-20 06-20 st (DEPO-PROVE 13:45: 13:33 Hospi ta RA) 00 :00 l injection 150 mg acetaminoph 2021- No 500mg Q6H Take 500 Method[facility] en 6-17 06-[address] (TYLENOL) 10:05: 00:00 mouth Hospit a 500 MG 06 :00 every 6 l tablet (six) hours as needed for mild pain. medroxyPROG 2021- No 150mg Q90D Inject 1 [facility] ESTERone 6-17 08-08 mL ([address] (DEPO-PROVE 00:00: 00:00 total) Hos olivia RA) 150 00 :00 into the l mg/mL shoulder, injection thigh, or buttocks every 3 (three) months. tranexamic 2021- No [id number] 1300mg Q.[id number] Take 2 [facility] acid 6-03 08-[id number] (Lysteda) 00:00: 00:00 3D (1,300 mg Ho spita 650 mg 00 :00 total) by l tablet mouth 3 tablet (three) times a day. For a maximum of 5 days starting on the first day of menses. tranexamic 2021- No [id number] 1300mg Q.[id number] Take 2 [facility] acid 5- 06- [id number] tablets st (Lysteda) 00:00: 00:00 3D (1,300 mg Ho spita 650 mg 00 :00 total) by l tablet mouth 3 tablet (three) times a day. For a maximum of 5 days starting on the first day of menses. keTOROlac 2021- No 10mg Q.[id number] Take 10 mg Method[facility] (TORadol) 07-15 06-17 [id number] by mouth [address] 10 mg 00:00: 00:00 3D (three) Hospita tablet 00 :00 times a l day. ibuprofen 2021- No 800mg Q8H Take 1 Meth felipe (ADVIL) 800 -21 05-[address] MG tablet 00:00: 04:59 (800 [...] TO THE l AFFECTED AREA TWICE DAILY triamcinolo Yes APPLY THIN Methodi ne 2-[address] (KENALOG) 00:00: TOPICALLY Hos olivia 0.1 % cream 00 TO THE l AFFECTED AREA TWICE DAILY cholecalcif 2022-0 Yes cholecalci Methodi jamie, 2-[address] [...] TO THE AFFECTED AREA TWICE DAILY ferrous Yes Q24H daily. [facility] sulfate 325 2-04 st (65 FE) MG 10:54: Hospita tablet 54 l famotidine Yes famotidine M ethodi (PEPCID) 40 2-[address] MG tablet 10:54: tablet Hospit a 54 l tranexamic Yes [id number] 1300mg Q.[id number] Take 2 [facility] acid 12-[id number] (Lysteda) 00:00: 3D (1,300 mg Hos olivia 650 mg 00 total) by l tablet mouth 3 tablet (three) times a day. For a maximum of 5 days starting on the first day of menses. tranexamic 2021- No [id number] 1300mg Q.[id number] Take 2 [facility] acid 12-03 05-[id number] (Lysteda) 00:00: 00:00 3D (1,300 mg Ho spita 650 mg 00 :00 total) by l tablet mouth 3 tablet (three) times a day. For a maximum of 5 days starting on the first day of menses. spironolact 2020- No [id number] 50mg Q.5D Take 1 Method[facility] one 12-03 tablet (50 st (Aldactone) 00:00: 05:59 mg total) Hospita 50 MG 00 :00 by mouth 2 l tablet (two) times a day for 90 days. eflornithin 2020- No [id number] 1{appli Q.5D Apply 1 Methodi e (Vaniqa) 12-03 1018 cation} applicatio st 13.9 % 00:00: 04:59 n Hospita cream 00 :00 topically l 2 (two) times a day with meals for 30 days. tranexamic 2020- No [id number] 1300mg Q.[id number] Take 2 [facility] acid 11-[id number] (Lysteda) 00:00: 00:00 3D (1,300 [...] QD Take 1 M ethodi hydrochloro 6-22 -[address] thiazide 00:00: 00:00 mouth Hospita (PRINZIDE) 00 :00 daily. l 10-12.5 mg per tablet pedi 2019-03 Yes Take by Method[facility] multivit 1-[address] no.12 08:57: Hospita w-fluoride 09 l (MULTIVITAM INS-FLUORID E-FOLIC A ORAL) tranexamic 2019-03- No [id number] 1300mg Q.[id number] Take 2 [facility] acid 1-16 - [id number] tablets st (Lysteda) 00:00: 00:00 3D (1,300 mg Ho spita 650 mg 00 :00 total) by l tablet mouth 3 tablet (three) times a day. For a maximum of 5 days starting on the first day of menses. prednisone prednisone No 1 Q1D prednisone [place] 20 mg 20 mg 20 mg Family tablet Take tablet Take tablet Practic 1 tablet 1 tablet Take 1 e every day every day tablet by oral by oral every day route with route with by oral meals for 5 meals for 5 route with days. days. meals for 5 days. sulfacetami sulfacetami No sulfacetam [facility] Family sodium-sulf sodium-sulf sodium-sul Practic ur 10 %-5 % ur 10 %-5 % fur 10 %-5 e (w/w) (w/w) % (w/w) topical topical topical cleanser cleanser cleanser [facility] Family acetonide acetonide acetonide Practic 0.1 % 0.1 % 0.1 % e topical topical topical cream APPLY cream APPLY cream THIN LAYER THIN LAYER APPLY THIN TOPICALLY TOPICALLY LAYER TO THE TO THE TOPICALLY AFFECTED AFFECTED TO THE AREA TWICE AREA TWICE AFFECTED DAILY DAILY AREA TWICE DAILY hydroxyzine hydroxyzine No hydroxyzin [facility] HCl 25 mg HCl 25 mg e HCl 25 F amily tablet TAKE tablet TAKE mg tablet Practic 1 TABLET BY 1 TABLET BY TAKE 1 e MOUTH EVERY MOUTH EVERY TABLET BY DAY AT DAY AT MOUTH BEDTIME BEDTIME EVERY DAY AT BEDTIME lisinopril lisinopril No lisinopril [facility] 10 10 10 Family mg-hydrochl mg-hydrochl mg-hydroch Practic orothiazide orothiazide lorothiazi e 12.5 mg 12.5 mg de 12.5 mg tablet TAKE tablet TAKE tablet 1 TABLET BY 1 TABLET BY TAKE 1 MOUTH EVERY MOUTH EVERY TABLET BY DAY DAY MOUTH EVERY DAY metronidazo metronidazo No metronidaz [facility] le 0.75 % le 0.75 % ole 0.75 % Family lotion lotion lotion Practic APPLY THIN APPLY THIN APPLY THIN e LAYER LAYER LAYER TOPICALLY TOPICALLY TOPICALLY TO FACE TO FACE TO FACE TWICE DAILY TWICE DAILY TWICE DAILY prednisone prednisone prednisone [facility] 20 mg 20 mg 20 mg Family tablet TAKE tablet TAKE tablet Practic 1 TABLET BY 1 TABLET BY TAKE 1 e MOUTH EVERY MOUTH EVERY TABLET BY DAY WITH DAY WITH MOUTH MEALS FOR 5 MEALS FOR 5 EVERY DAY DAYS DAYS WITH MEALS FOR 5 DAYS triamcinolo triamcinolo [facility] ne one [facility] acetonide acetonide acetonide Practic 0.1 % 0.1 % 0.1 % e topical topical topical cream APPLY cream APPLY cream THIN LAYER THIN LAYER APPLY THIN TOPICALLY TOPICALLY LAYER TO THE TO THE TOPICALLY AFFECTED AFFECTED TO THE AREA TWICE AREA TWICE AFFECTED DAILY DAILY AREA TWICE DAILY amoxicillin amoxicillin No amoxicilli [facility] [phone] Family mg-potassiu mg-potassiu mg-potassi Practic m m um e clavulanate clavulanate clavulanat 125 mg 125 mg e 125 mg tablet TAKE tablet TAKE tablet 1 TABLET BY 1 TABLET BY TAKE 1 MOUTH EVERY MOUTH EVERY TABLET BY 12 HOURS 12 HOURS MOUTH FOR 7 DAYS FOR 7 DAYS EVERY 12 HOURS FOR 7 DAYS hydroxyzine hydroxyzine hydroxyzin [facility] HCl 25 mg HCl 25 mg e HCl 25 F amily tablet TAKE tablet TAKE mg tablet Practic 1 TABLET BY 1 TABLET BY TAKE 1 e MOUTH EVERY MOUTH EVERY TABLET BY DAY AT DAY AT MOUTH BEDTIME BEDTIME EVERY DAY AT BEDTIME lisinopril lisinopril lisinopril [facility] 10 10 10 Family mg-hydrochl mg-hydrochl mg-hydroch Practic orothiazide orothiazide lorothiazi e 12.5 mg 12.5 mg de 12.5 mg tablet TAKE tablet TAKE tablet 1 TABLET BY 1 TABLET BY TAKE 1 MOUTH EVERY MOUTH EVERY TABLET BY DAY DAY MOUTH EVERY DAY metronidazo metronidazo metronidaz [facility] le 0.75 % le 0.75 % ole 0.75 % Family lotion lotion lotion Practic APPLY THIN APPLY THIN APPLY THIN e LAYER LAYER LAYER TOPICALLY TOPICALLY TOPICALLY TO FACE TO FACE TO FACE TWICE DAILY TWICE DAILY TWICE DAILY promethazin promethazin No [facility] e-[facility] 6.25 e-DM 6.25 ne-DM 6.25 [...] 10 days. for 10 days. triamcinolo triamcinolo triamcinol [facility] ne ne one Family acetonide acetonide acetonide Practic 0.1 % 0.1 % 0.1 % e topical topical topical cream APPLY cream APPLY cream THIN LAYER THIN LAYER APPLY THIN TOPICALLY TOPICALLY LAYER TO THE TO THE TOPICALLY AFFECTED AFFECTED TO THE AREA TWICE AREA TWICE AFFECTED DAILY DAILY AREA TWICE DAILY azelastine azelastine No 2spray( BID azelastine [facility] 137 mcg 137 mcg s) 137 mcg Family (0.1 %) (0.1 %) (0.1 %) Practi c nasal spray nasal spray nasal e aerosol aerosol spray Centre 2 Centre 2 aerosol sprays sprays Centre 2 twice a day twice a day sprays by by twice a intranasal intranasal day by route as route as intranasal directed directed route as for 30 for 30 directed days. days. for 30 days. Bromfed DM Bromfed DM No 10mL BID Bromfed DM [facility] 2 mg-30 2 mg-30 2 mg-30 Family mg-10 mg/5 mg-10 mg/5 mg-10 mg/5 Practic mL oral mL oral mL oral e syrup Take syrup Take syrup Take 10 mL twice 10 mL twice 10 mL a day by a day by twice a oral route oral route day by as needed as needed oral route for 10 for 10 as needed days. days. for 10 days. fluticasone fluticasone No 1spray( BID fluticason [facility] propionate propionate s) e Fam regan 50 50 propionate Practic mcg/actuati mcg/actuati 50 e on nasal on nasal mcg/actuat spray,suspe spray,suspe ion nasal nsion Centre nsion Centre spray,susp 1 spray 1 spray ension twice a day twice a day Centre 1 by by spray intranasal intranasal twice a route as route as day by directed directed intranasal for 30 for 30 route as days. days. directed for 30 days. hydroxyzine hydroxyzine No hydroxyzin [facility] HCl 25 mg HCl 25 mg e HCl 25 F amily tablet TAKE tablet TAKE mg tablet Practic 1 TABLET BY 1 TABLET BY TAKE 1 e MOUTH EVERY MOUTH EVERY TABLET BY DAY AT DAY AT MOUTH BEDTIME BEDTIME EVERY DAY AT BEDTIME lisinopril lisinopril No lisinopril [facility] 10 10 10 Family mg-hydrochl mg-hydrochl mg-hydroch Practic orothiazide orothiazide lorothiazi e 12.5 mg 12.5 mg de 12.5 mg tablet TAKE tablet TAKE tablet 1 TABLET BY 1 TABLET BY TAKE 1 MOUTH EVERY MOUTH EVERY TABLET BY DAY DAY MOUTH EVERY DAY Medrol Medrol No Medrol [facility] (Memo) 4 mg (Memo) 4 mg (Memo) 4 mg Family tablets in tablets in tablets in Practic a dose pack a dose pack a dose e Take 1 pk Take 1 pk pack Take as directed as directed 1 pk as with meals with meals directed with meals metronidazo metronidazo No metronidaz [facility] le 0.75 % le 0.75 % ole 0.75 % Family lotion lotion lotion Practic APPLY THIN APPLY THIN APPLY THIN e LAYER LAYER LAYER TOPICALLY TOPICALLY TOPICALLY TO FACE TO FACE TO FACE TWICE DAILY TWICE DAILY TWICE DAILY triamcinolo triamcinolo No triamcinol [facility] ne ne one Family acetonide acetonide acetonide Practic 0.1 % 0.1 % 0.1 % e topical topical topical cream APPLY cream APPLY cream THIN LAYER THIN LAYER APPLY THIN TOPICALLY TOPICALLY LAYER TO THE TO THE TOPICALLY AFFECTED AFFECTED TO THE AREA TWICE AREA TWICE AFFECTED DAILY DAILY AREA TWICE DAILY azelastine azelastine No 1spray( BID azelastine [facility] 137 mcg 137 mcg s) 137 mcg Family (0.1 %) (0.1 %) (0.1 %) Practi c nasal spray nasal spray nasal e aerosol aerosol spray Centre 1 Centre 1 aerosol spray twice spray twice Centre 1 a day by a day by spray nasal route nasal route twice a for 25 for 25 day by days. days. nasal route for 25 days. fluticasone fluticasone No 1spray( BID fluticason [facility] propionate propionate s) e Fam regan 50 50 propionate Practic mcg/actuati mcg/actuati 50 e on nasal on nasal mcg/actuat spray,suspe spray,suspe ion nasal nsion Centre nsion Centre spray,susp 1 spray 1 spray ension twice a day twice a day Centre 1 by nasal by nasal spray route for route for twice a 30 days. 30 days. day by nasal route for 30 days. lisinopril lisinopril No 1 Q1D lisinopril [facility] 10 10 10 Family mg-hydrochl mg-hydrochl mg-hydroch Practic orothiazide orothiazide lorothiazi e 12.5 mg 12.5 mg de 12.5 mg tablet Take tablet Take tablet 1 tablet 1 tablet Take 1 every day every day tablet by oral by oral every day route for route for by oral 90 days. 90 days. route for 90 days. metronidazo metronidazo No 1applic BID metronidaz [facility] le 0.75 % le 0.75 % ation(s ole 0.75 % Family lotion lotion ) lotion Practic Apply 1 Apply 1 Apply 1 e application application applicatio twice a day twice a day n twice a by topical by topical day by route for route for topical 15 days. 15 days. route for 15 days. triamcinolo triamcinolo No 1applic BID triamcinol [facility] ne ne ation(s one Family acetonide acetonide ) acetonide Practic 0.1 % 0.1 % 0.1 % e topical topical topical cream Apply cream Apply cream 1 1 Apply 1 application application applicatio twice a day twice a day n twice a by topical by topical day by route for route for topical 25 days. 25 days. route for 25 days. amoxicillin amoxicillin No 1 Q12H amoxicilli [facility] [phone] 875 Family mg-potassiu mg-potassiu mg-potassi Practic m m um e clavulanate clavulanate clavulanat 125 mg 125 mg e 125 mg tablet Take tablet Take tablet 1 tablet 1 tablet Take 1 every 12 every 12 tablet hours by hours by every 12 oral route oral route hours by for 7 days. for 7 days. oral route for 7 days. azelastine azelastine No 1spray( BID azelastine [facility] 137 mcg 137 mcg s) 137 mcg Family (0.1 %) (0.1 %) (0.1 %) Practi c nasal spray nasal spray nasal e aerosol aerosol spray Centre 1 Centre 1 aerosol spray twice spray twice Centre 1 a day by a day by spray nasal route nasal route twice a for 25 for 25 day by days. days. nasal route for 25 days. fluticasone fluticasone No 1spray( BID fluticason [facility] propionate propionate s) e Fam regan 50 50 propionate Practic mcg/actuati mcg/actuati 50 e on nasal on nasal mcg/actuat spray,suspe spray,suspe ion nasal nsion Centre nsion Centre spray,susp 1 spray 1 spray ension twice a day twice a day Centre 1 by nasal by nasal spray route for route for twice a 30 days. 30 days. day by nasal route for 30 days. lisinopril lisinopril No lisinopril [facility] 10 10 10 Family mg-hydrochl mg-hydrochl mg-hydroch Practic orothiazide orothiazide lorothiazi e 12.5 mg 12.5 mg de 12.5 mg tablet TAKE tablet TAKE tablet 1 TABLET BY 1 TABLET BY TAKE 1 MOUTH EVERY MOUTH EVERY TABLET BY DAY DAY MOUTH EVERY DAY Medrol Medrol No Medrol [facility] (Memo) 4 mg (Memo) 4 mg (Memo) 4 mg Family tablets in tablets in tablets in Practic a dose pack a dose pack a dose e Take 1 pk Take 1 pk pack Take as directed as directed 1 pk as with meals with meals directed with meals metronidazo metronidazo No 1applic BID metronidaz [facility] le 0.75 % le 0.75 % ation(s ole 0.75 % Family lotion lotion ) lotion Practic Apply 1 Apply 1 Apply 1 e application application applicatio twice a day twice a day n twice a by topical by topical day by route for route for topical 15 days. 15 days. route for 15 days. triamcinolo triamcinolo No 1applic BID triamcinol [facility] ne ne ation(s one Family acetonide acetonide ) acetonide Practic 0.1 % 0.1 % 0.1 % e topical topical topical cream Apply cream Apply cream 1 1 Apply 1 application application applicatio twice a day twice a day n twice a by topical by topical day by route for route for topical 25 days. 25 days. route for 25 days. fluticasone fluticasone No 1spray( BID fluticason [place] propionate propionate s) e Fam regan 50 50 propionate Practic mcg/actuati mcg/actuati 50 e on nasal on nasal mcg/actuat spray,suspe spray,suspe ion nasal nsion Centre nsion Centre spray,susp 1 spray 1 spray ension twice a day twice a day Centre 1 by nasal by nasal spray route for route for twice a 30 days. 30 days. day by nasal route for 30 days. lisinopril lisinopril No lisinopril [facility] 10 10 10 Family mg-hydrochl mg-hydrochl mg-hydroch Practic orothiazide orothiazide lorothiazi e 12.5 mg 12.5 mg de 12.5 mg tablet TAKE tablet TAKE tablet 1 TABLET BY 1 TABLET BY TAKE 1 MOUTH EVERY MOUTH EVERY TABLET BY DAY DAY MOUTH EVERY DAY Medrol Medrol No Medrol [facility] (Memo) 4 mg (Memo) 4 mg (Memo) 4 mg Family tablets in tablets in tablets in Practic a dose pack a dose pack a dose e Take 1 pk Take 1 pk pack Take as directed as directed 1 pk as with meals with meals directed with meals metronidazo metronidazo No 1applic BID metronidaz [place] le 0.75 % le 0.75 % ation(s ole 0.75 % Family lotion lotion ) lotion Practic Apply 1 Apply 1 Apply 1 e application application applicatio twice a day twice a day n twice a by topical by topical day by route for route for topical 15 days. 15 days. route for 15 days. triamcinolo triamcinolo No 1applic BID triamcinol [place] ne ne ation(s one Family acetonide acetonide ) acetonide Practic 0.1 % 0.1 % 0.1 % e topical topical topical cream Apply cream Apply cream 1 1 Apply 1 application application applicatio twice a day twice a day n twice a by topical by topical day by route for route for topical 25 days. 25 days. route for 25 days. Wegovy 0.25 Wegovy 0.25 No .25mg Q1W [place]y [place] mg/0.5 mL mg/0.5 mL 0.25 Famil y subcutaneou subcutaneou mg/0.5 mL Practic s pen s pen subcutaneo e injector injector us pen Inject 0.25 Inject 0.25 injector mg every mg every Inject week by week by 0.25 mg subcutaneou subcutaneou every week s route as s route as by directed directed subcutaneo for 30 for 30 us route days. days. as directed for 30 days. fluticasone fluticasone No 1spray( BID fluticason [place] propionate propionate s) e Fam regan 50 50 propionate Practic mcg/actuati mcg/actuati 50 e on nasal on nasal mcg/actuat spray,suspe spray,suspe ion nasal nsion Centre nsion Centre spray,susp 1 spray 1 spray ension twice a day twice a day Centre 1 by nasal by nasal spray route for route for twice a 30 days. 30 days. day by nasal route for 30 days. lisinopril lisinopril No lisinopril [facility] 10 10 10 Family mg-hydrochl mg-hydrochl mg-hydroch Practic orothiazide orothiazide lorothiazi e 12.5 mg 12.5 mg de 12.5 mg tablet TAKE tablet TAKE tablet 1 TABLET BY 1 TABLET BY TAKE 1 MOUTH EVERY MOUTH EVERY TABLET BY DAY DAY MOUTH EVERY DAY metronidazo metronidazo No metronidaz [place] le 0.75 % le 0.75 % ole 0.75 % Family lotion lotion lotion Practic APPLY THIN APPLY THIN APPLY THIN e LAYER LAYER LAYER TOPICALLY TOPICALLY TOPICALLY TO FACE TO FACE TO FACE TWICE DAILY TWICE DAILY TWICE DAILY triamcinolo triamcinolo No 1applic BID triamcinol [facility] ne ne ation(s one Family acetonide acetonide ) acetonide Practic 0.1 % 0.1 % 0.1 % e topical topical topical cream Apply cream Apply cream 1 1 Apply 1 application application applicatio twice a day twice a day n twice a by topical by topical day by route for route for topical 25 days. 25 days. route for 25 days. Wegovy 0.25 Wegovy 0.25 No Wegovy [facility] mg/0.5 mL mg/0.5 mL 0.25 Famil y subcutaneou subcutaneou mg/0.5 mL Practic s pen s pen subcutaneo e injector injector us pen INJECT INJECT injector 0.25MG 0.25MG INJECT UNDER THE UNDER THE 0.25MG SKIN EVERY SKIN EVERY UNDER THE WEEK WEEK SKIN EVERY DIRECTED DIRECTED WEEK DIRECTED Wegovy 0.5 Wegovy 0.5 No .5mg Q1W Wegov[facility] 0.5 [facility] mg/0.5 mL mg/0.5 mL mg/0.5 mL Family subcutaneou subcutaneou subcutaneo Practic s pen s pen us pen e injector injector injector Inject 0.5 Inject 0.5 Inject 0.5 mg every mg every mg every week by week by week by subcutaneou subcutaneou subcutaneo s route as s route as us route directed directed as for 30 for 30 directed days. days. for 30 days. Bactrim DS Bactrim DS No 1 Q12H Bactrim DS [facility] 800 mg-160 800 mg-160 800 mg-160 Family mg tablet mg tablet mg tablet Practic Take 1 Take 1 Take 1 e tablet tablet tablet every 12 every 12 every 12 hours by hours by hours by oral route oral route oral route for 7 days. for 7 days. for 7 days. fluticasone fluticasone No 1spray( BID fluticason [facility] propionate propionate s) e Fam regan 50 50 propionate Practic mcg/actuati mcg/actuati 50 e on nasal on nasal mcg/actuat spray,suspe spray,suspe ion nasal nsion Centre nsion Centre spray,susp 1 spray 1 spray ension twice a day twice a day Centre 1 by nasal by nasal spray route for route for twice a 30 days. 30 days. day by nasal route for 30 days. lisinopril lisinopril No lisinopril [facility] 10 10 10 Family mg-hydrochl mg-hydrochl mg-hydroch Practic orothiazide orothiazide lorothiazi e 12.5 mg 12.5 mg de 12.5 mg tablet TAKE tablet TAKE tablet 1 TABLET BY 1 TABLET BY TAKE 1 MOUTH EVERY MOUTH EVERY TABLET BY DAY DAY MOUTH EVERY DAY metronidazo metronidazo No metronidaz [facility] le 0.75 % le 0.75 % ole 0.75 % Family lotion lotion lotion Practic APPLY THIN APPLY THIN APPLY THIN e LAYER LAYER LAYER TOPICALLY TOPICALLY TOPICALLY TO FACE TO FACE TO FACE TWICE DAILY TWICE DAILY TWICE DAILY Prescriptio Prescriptio No Prescripti [facility] n - Change n - Change on - Fam regan inject inject Change Practic every day every day inject e for 1 week for 1 week every day for 1 week Silvadene 1 Silvadene 1 No Silvadene [facility] % topical % topical 1 % Famil y cream APPLY cream APPLY topical Practic A 1/16 IN[facility] A 1/16 [facility] cream e (1.5 MM) (1.5 MM) APPLY A THICK LAYER THICK LAYER 1/16 [facility] TO ENTIRE TO ENTIRE (1.5 MM) AREA BY AREA BY THICK TOPICAL TOPICAL LAYER TO ROUTE and ROUTE and ENTIRE bandage QHS bandage QHS AREA BY x 10 days x 10 days TOPICAL ROUTE and bandage QHS x 10 days triamcinolo triamcinolo No 1applic BID triamcinol [facility] ne ne ation(s one Family acetonide acetonide ) acetonide Practic 0.1 % 0.1 % 0.1 % e topical topical topical cream Apply cream Apply cream 1 1 Apply 1 application application applicatio twice a day twice a day n twice a by topical by topical day by route for route for topical 25 days. 25 days. route for 25 days. betamethaso betamethaso No betamethas [facility] ne ne one Family dipropionat dipropionat [...] WEEKS/ WEEKS/ 2 WEEKS/ MONTH MONTH MONTH Depo-Admissions Officer Depo-Admissions Officer No 1mL Depo-Prove [facility] a 150 mg/mL a 150 mg/mL ra 150 Family intramuscul intramuscul mg/mL Practic ar ar intramuscu e suspension suspension lar Inject 1 mL Inject 1 mL suspension every 3 every 3 Inject 1 months by months by mL every 3 intramuscul intramuscul months by ar route. ar route. intramuscu lar route. hydroxyzine hydroxyzine No hydroxyzin [facility] HCl 25 mg HCl 25 mg e HCl 25 F amily tablet TAKE tablet TAKE mg tablet Practic 1 TABLET BY 1 TABLET BY TAKE 1 e MOUTH EVERY MOUTH EVERY TABLET BY DAY AT DAY AT MOUTH BEDTIME BEDTIME EVERY DAY AT BEDTIME lisinopril lisinopril No lisinopril [facility] 10 10 10 Family mg-hydrochl mg-hydrochl [...] tablet Practic e triamcinolo triamcinolo No triamcinol [facility] ne ne one Family acetonide acetonide acetonide Practic 0.1 % 0.1 % 0.1 % e topical topical topical cream APPLY cream APPLY cream THIN LAYER THIN LAYER APPLY THIN TOPICALLY TOPICALLY LAYER TO THE TO THE TOPICALLY AFFECTED AFFECTED TO THE AREA TWICE AREA TWICE AFFECTED DAILY DAILY AREA TWICE DAILY betamethaso betamethaso No betamethas [facility] ne ne one Family dipropionat dipropionat [...] WEEKS/ MONTH MONTH MONTH hydroxyzine hydroxyzine No [facility] HCl 25 mg HCl 25 mg e HCl 25 F amily tablet TAKE tablet TAKE mg tablet Practic 1 TABLET BY 1 TABLET BY TAKE 1 e MOUTH EVERY MOUTH EVERY TABLET BY DAY AT DAY AT MOUTH BEDTIME BEDTIME EVERY DAY AT BEDTIME ibuprofen ibuprofen No ibuprofen [facility] 800 mg 800 mg 800 mg Family tablet tablet tablet Practic e lisinopril lisinopril No lisinopril [facility] 10 10 10 Family mg-hydrochl mg-hydrochl mg-hydroch Practic orothiazide orothiazide lorothiazi e 12.5 mg 12.5 mg de 12.5 mg tablet TAKE tablet TAKE tablet 1 TABLET BY 1 TABLET BY TAKE 1 MOUTH EVERY MOUTH EVERY TABLET BY DAY DAY MOUTH EVERY DAY ondansetron ondansetron No ondansetro [facility] 8 mg 8 mg n 8 [...] oral route as needed. [facility] acetonide acetonide acetonide Practic 0.1 % 0.1 % 0.1 % e topical topical topical cream APPLY cream APPLY cream THIN LAYER THIN LAYER APPLY THIN TOPICALLY TOPICALLY LAYER TO THE TO THE TOPICALLY AFFECTED AFFECTED TO THE AREA TWICE AREA TWICE AFFECTED DAILY DAILY AREA TWICE DAILY [facility]ine [facility] 25 mg HCl 25 mg e HCl 25 F amily tablet TAKE tablet TAKE mg tablet Practic 1 TABLET BY 1 TABLET BY TAKE 1 e MOUTH EVERY MOUTH EVERY TABLET BY DAY AT DAY AT MOUTH BEDTIME BEDTIME EVERY DAY AT BEDTIME lisinopril lisinopril No lisinopril [facility] 10 10 10 Family mg-hydrochl mg-hydrochl mg-hydroch Practic orothiazide orothiazide lorothiazi e 12.5 mg 12.5 mg de 12.5 mg tablet TAKE tablet TAKE tablet 1 TABLET BY 1 TABLET BY TAKE 1 MOUTH EVERY MOUTH EVERY TABLET BY DAY DAY MOUTH EVERY DAY metronidazo metronidazo No metronidaz [facility] le 0.75 % le 0.75 % [...] take with food sulfacetami sulfacetami No sulfacetam [facility] de [facility] estefany [facility] sodium-sulf sodium-sulf sodium-sul Practic ur 10 %-5 % ur 10 %-5 % fur 10 %-5 e (w/w) (w/w) % (w/w) topical topical topical cleanser cleanser cleanser triamcinolo triamcinolo No triamcinol [facility] ne ne one Family acetonide acetonide acetonide Practic 0.1 % 0.1 % 0.1 % e topical topical topical cream APPLY cream APPLY cream THIN LAYER THIN LAYER APPLY THIN TOPICALLY TOPICALLY LAYER TO THE TO THE TOPICALLY AFFECTED AFFECTED TO THE AREA TWICE AREA TWICE AFFECTED DAILY DAILY AREA TWICE DAILY amoxicillin amoxicillin No 1 Q12H amoxicilli [facility] 875 mg 875 mg n 875 mg Family tablet Take tablet Take tablet Practic 1 tablet 1 tablet Take 1 e every 12 every 12 tablet hours by hours by every 12 oral route oral route hours by with meals with meals oral route for 10 for 10 with meals days. days. for 10 days. hydroxyzine hydroxyzine No hydroxyzin [facility] HCl 25 mg HCl 25 mg e HCl 25 F amily tablet TAKE tablet TAKE mg tablet Practic 1 TABLET BY 1 TABLET BY TAKE 1 e MOUTH EVERY MOUTH EVERY TABLET BY DAY AT DAY AT MOUTH BEDTIME BEDTIME EVERY DAY AT BEDTIME lisinopril lisinopril No lisinopril [facility] 10 10 10 Family mg-hydrochl mg-hydrochl mg-hydroch Practic orothiazide orothiazide lorothiazi e 12.5 mg 12.5 mg de 12.5 mg tablet TAKE tablet TAKE tablet 1 TABLET BY 1 TABLET BY TAKE 1 MOUTH EVERY MOUTH EVERY TABLET BY DAY DAY MOUTH EVERY DAY metronidazo metronidazo No metronidaz [facility] le 0.75 % le 0.75 % ole 0.75 % Family lotion lotion lotion Practic APPLY THIN APPLY THIN APPLY THIN e LAYER LAYER LAYER TOPICALLY TOPICALLY TOPICALLY TO FACE TO FACE TO FACE TWICE DAILY TWICE DAILY TWICE DAILY Immunizations Ordered Filled Immunization Date Status Comments [facility] e Immunization Name Name influenza, influenza, 2022-01-21 Completed [facility] injectable, injectable, 15:42:00 Practice quadrivalent, quadrivalent, preservative free preservative free influenza, influenza, 2022-01-21 Completed [facility] injectable, injectable, 15:42:00 Practice quadrivalent, quadrivalent, preservative free preservative free influenza, influenza, 2022-01-21 Completed [facility] injectable, injectable, 15:42:00 Practice quadrivalent, quadrivalent, preservative free preservative free influenza, influenza, 2022-01-21 Completed [facility] injectable, injectable, 15:42:00 Practice quadrivalent, quadrivalent, preservative free preservative free influenza, influenza, 2022-01-21 Completed [facility] injectable, injectable, 15:42:00 Practice quadrivalent, quadrivalent, preservative free preservative free influenza, influenza, 2022-01-21 Completed [facility] injectable, injectable, 15:42:00 Practice quadrivalent, quadrivalent, preservative free preservative free influenza, influenza, 2022-01-21 Completed [facility] injectable, injectable, 15:42:00 Practice quadrivalent, quadrivalent, preservative free preservative free influenza, influenza, 2022-01-21 Completed [facility] injectable, injectable, 15:42:00 Practice quadrivalent, quadrivalent, preservative free preservative free influenza, influenza, 2022-01-21 Completed [facility] injectable, injectable, 15:42:00 Practice quadrivalent, quadrivalent, preservative free preservative free MODERNA COVID-19 2021-04-01 [facility] COVID-19 COVID-19 2021-03-04 Completed [facility] (SARS-COV-2) (SARS-COV-2) 00:00:00 Practice vaccine, vaccine, unspecified unspecified COVID-19 COVID-19 2021-03-04 Completed [facility] (SARS-COV-2) (SARS-COV-2) 00:00:00 Practice vaccine, vaccine, unspecified unspecified COVID-19 COVID-19 2021-03-04 Completed [facility] (SARS-COV-2) (SARS-COV-2) 00:00:00 Practice vaccine, vaccine, unspecified unspecified COVID-19 COVID-19 2021-03-04 Completed [facility] (SARS-COV-2) (SARS-COV-2) 00:00:00 Practice vaccine, vaccine, unspecified unspecified COVID-19 COVID-19 2021-03-04 Completed [facility] (SARS-COV-2) (SARS-COV-2) 00:00:00 Practice vaccine, vaccine, unspecified unspecified COVID-19 COVID-19 2021-03-04 Completed [facility] (SARS-COV-2) (SARS-COV-2) 00:00:00 Practice vaccine, vaccine, unspecified unspecified COVID-19 COVID-19 2021-03-04 Completed [facility] (SARS-COV-2) (SARS-COV-2) 00:00:00 Practice vaccine, vaccine, unspecified unspecified COVID-19 COVID-19 2021-03-04 Completed [facility] (SARS-COV-2) (SARS-COV-2) 00:00:00 Practice vaccine, vaccine, unspecified unspecified COVID-19 COVID-19 2021-03-04 Completed [facility] (SARS-COV-2) (SARS-COV-2) 00:00:00 Practice vaccine, vaccine, unspecified unspecified COVID-19 COVID-19 2021-03-04 Completed [facility] (SARS-COV-2) (SARS-COV-2) 00:00:00 Practice vaccine, vaccine, unspecified unspecified COVID-19 COVID-19 2021-03-04 Completed [facility] (SARS-COV-2) (SARS-COV-2) 00:00:00 Practice vaccine, vaccine, unspecified unspecified MODERNA COVID-19 2021-03-04 [facility] influenza, influenza, 2021-02-25 Completed [facility] injectable, injectable, 13:12:00 Practice quadrivalent, quadrivalent, preservative free preservative free Tdap Tdap 2021-02-25 Completed [facility] 13:12:00 Practice influenza, influenza, 2021-02-25 Completed [facility] injectable, injectable, 13:12:00 Practice quadrivalent, quadrivalent, preservative free preservative free Tdap Tdap 2021-02-25 Completed [facility] 13:12:00 Practice influenza, influenza, 2021-02-25 Completed [facility] injectable, injectable, 13:12:00 Practice quadrivalent, quadrivalent, preservative free preservative free Tdap Tdap 2021-02-25 Completed [facility] 13:12:00 Practice influenza, influenza, 2021-02-25 Completed [facility] injectable, injectable, 13:12:00 Practice quadrivalent, quadrivalent, preservative free preservative free Tdap Tdap 2021-02-25 Completed [facility] 13:12:00 Practice influenza, influenza, 2021-02-25 Completed [facility] injectable, injectable, 13:12:00 Practice quadrivalent, quadrivalent, preservative free preservative free Tdap Tdap 2021-02-25 Completed [facility] 13:12:00 Practice influenza, influenza, 2021-02-25 Completed [facility] injectable, injectable, 13:12:00 Practice quadrivalent, quadrivalent, preservative free preservative free Tdap Tdap 2021-02-25 Completed [facility] 13:12:00 Practice influenza, influenza, 2021-02-25 Completed [facility] injectable, injectable, 13:12:00 Practice quadrivalent, quadrivalent, preservative free preservative free Tdap Tdap 2021-02-25 Completed [facility] 13:12:00 Practice influenza, influenza, 2021-02-25 Completed [facility] injectable, injectable, 13:12:00 Practice quadrivalent, quadrivalent, preservative free preservative free Tdap Tdap 2021-02-25 Completed [facility] 13:12:00 Practice influenza, influenza, 2021-02-25 Completed [facility] injectable, injectable, 13:12:00 Practice quadrivalent, quadrivalent, preservative free preservative free Tdap Tdap 2021-02-25 Completed [facility] 13:12:00 Practice influenza, influenza, 2021-02-25 Completed [facility] injectable, injectable, 13:12:00 Practice quadrivalent, quadrivalent, preservative free preservative free Tdap Tdap 2021-02-25 Completed [facility] 13:12:00 Practice influenza, influenza, 2021-02-25 Completed [facility] injectable, injectable, 13:12:00 Practice quadrivalent, quadrivalent, preservative free preservative free Tdap Tdap 2021-02-25 Completed [facility] 13:12:00 Practice influenza, influenza, 2009-03-19 Completed [facility] injectable, injectable, 00:00:00 Practice quadrivalent quadrivalent influenza, influenza, 2009-03-19 Completed [facility] injectable, injectable, 00:00:00 Practice quadrivalent quadrivalent influenza, influenza, 2009-03-19 Completed [facility] injectable, injectable, 00:00:00 Practice quadrivalent quadrivalent influenza, influenza, 2009-03-19 Completed [facility] injectable, injectable, 00:00:00 Practice quadrivalent quadrivalent influenza, influenza, 2009-03-19 Completed [facility] injectable, injectable, 00:00:00 Practice quadrivalent quadrivalent influenza, influenza, 2009-03-19 Completed [facility] injectable, injectable, 00:00:00 Practice quadrivalent quadrivalent influenza, influenza, 2009-03-19 Completed [facility] injectable, injectable, 00:00:00 Practice quadrivalent quadrivalent influenza, influenza, 2009-03-19 Completed [facility] injectable, injectable, 00:00:00 Practice quadrivalent quadrivalent influenza, influenza, 2009-03-19 Completed [facility] injectable, injectable, 00:00:00 Practice quadrivalent quadrivalent influenza, influenza, 2009-03-19 Completed [facility] injectable, injectable, 00:00:00 Practice quadrivalent quadrivalent influenza, influenza, 2009-03-19 Completed [facility] injectable, injectable, 00:00:00 Practice quadrivalent quadrivalent influenza, influenza, Unknown Completed [facility] injectable, injectable, Practice quadrivalent, quadrivalent, preservative free preservative free influenza, influenza, Unknown Completed [facility] injectable, injectable, Practice quadrivalent, quadrivalent, preservative free preservative free Tdap Tdap Unknown Completed [facility] Practice COVID-19 COVID-19 Unknown Completed [facility] (SARS-COV-2) (SARS-COV-2) Practice vaccine, vaccine, unspecified unspecified influenza, influenza, Unknown Completed [facility] injectable, injectable, Practice quadrivalent quadrivalent MODERNA COVID-19 Unknown [facility] MODERNA COVID-19 Unknown Com[facility] Vital Signs Vital Name Observation Time Observation Value Comments Source BP Systolic 2022-12-06 00:00:00 125 mm[Hg] [facility] Body Weight 2022-12-06 00:00:00 259 [lb_av] [facility] BMI (Body Mass 2022-12-06 00:00:00 43.1 kg/m2 [facility] BP Diastolic 2022-12-06 00:00:00 89 mm[Hg] [facility] Height 2022-12-06 00:00:00 65 [in_i] [facility] BP Diastolic 2022-09-02 00:00:00 107 mm[Hg] [facility] Height 2022-09-02 00:00:00 65 [in_i] [facility] BMI (Body Mass 2022-09-02 00:00:00 43.5 kg/m2 [facility] BP Systolic 2022-09-02 00:00:00 163 mm[Hg] [facility] Body Weight 2022-09-02 00:00:00 261.6 [lb_av] [facility] BP Diastolic 2022-08-06 00:00:00 69 mm[Hg] [facility] Height 2022-08-06 00:00:00 65 [in_i] [facility] BMI (Body Mass 2022-08-06 00:00:00 44 kg/m2 [facility] BP Systolic 2022-08-06 00:00:00 95 mm[Hg] [facility] Body Weight 2022-08-06 00:00:00 264.4 [lb_av] [facility] BP Diastolic 2022-07-22 00:00:00 93 mm[Hg] [facility] Height 2022-07-22 00:00:00 65 [in_i] [facility] BMI (Body Mass 2022-07-22 00:00:00 44.1 kg/m2 [facility] BP Systolic 2022-07-22 00:00:00 139 mm[Hg] [facility] Body Weight 2022-07-22 00:00:00 265 [lb_av] [facility] BP Diastolic 2022-06-05 00:00:00 84 mm[Hg] [facility] Height 2022-06-05 00:00:00 65 [in_i] [facility] BMI (Body Mass 2022-06-05 00:00:00 43.1 kg/m2 [facility] BP Systolic 2022-06-05 00:00:00 132 mm[Hg] [facility] Body Weight 2022-06-05 00:00:00 259 [lb_av] [facility] BP Diastolic 2022-05-22 00:00:00 91 mm[Hg] [facility] Height 2022-05-22 00:00:00 65 [in_i] [facility] BMI (Body Mass 2022-05-22 00:00:00 43.6 kg/m2 [facility] BP Systolic 2022-05-22 00:00:00 140 mm[Hg] [facility] Body Weight 2022-05-22 00:00:00 262.2 [lb_av] [facility] BP Diastolic 2022-03-03 00:00:00 81 mm[Hg] [facility] Height 2022-03-03 00:00:00 65 [in_i] [facility] BMI (Body Mass 2022-03-03 00:00:00 45.2 kg/m2 [facility] BP Systolic 2022-03-03 00:00:00 137 mm[Hg] [facility] Body Weight 2022-03-03 00:00:00 271.4 [lb_av] [facility] Height 2022-02-24 00:00:00 65 [in_i] [facility] BMI (Body Mass 2022-02-24 00:00:00 44.6 kg/m2 [facility] Body Weight 2022-02-24 00:00:00 268 [lb_av] [facility] BP Diastolic 2022-02-14 00:00:00 87 mm[Hg] [facility] Height 2022-02-14 00:00:00 65 [in_i] [facility] BMI (Body Mass 2022-02-14 00:00:00 44.1 kg/m2 [facility] BP Systolic 2022-02-14 00:00:00 137 mm[Hg] [facility] Body Weight 2022-02-14 00:00:00 265 [lb_av] [facility] BP Diastolic 2022-01-21 00:00:00 87 [...] 11:00:00 168 mm[Hg] [facility] Diastolic blood 2021-10-22 11:00:00 116 mm[facility]Hg[facility] Heart rate 2021-10-22 11:00:00 68 /min [facility] Respiratory rate 2021-10-22 11:00:00 15 /min [facility] Oxygen saturation in 2021-10-22 11:00:00 96 /min [facility] Arterial blood by [facility] Pulse oximetry Branch Body temperature 2021-10-22 09:05:[address] [facility] 2021-10-22 09:05:00 165.1 cm [facility] Body weight 2021-10-22 09:05:00 120.203 kg [facility] BMI 2021-10-22 09:05:00 44.10 kg/m2 [facility] BP Diastolic 2021 00:00:00 91 mm[Hg] [facility] Height 2020-11-04 00:00:00 65 [in_i] [facility] BMI (Body Mass 2020-11-04 00:00:00 [...] Family Practice Height 2020-09-11 00:00:00 65 [in_i] [facility] BMI (Body Mass 2020-09-11 00:00:00 [...] BMI (Body Mass 2020-02-07 00:00:00 41.6 kg/m2 [facility] BP Systolic 2020-02-07 00:00:00 207 mm[Hg] [facility] Body Weight 2020-02-07 00:00:00 250 [lb_av] [facility] Systolic blood 2021-12-26 15:54:00 132 mm[Hg] [facility] Diastolic blood 2021-12-26 15:54:00 92 mm[Hg[facility] pressure Heart rate 2021-12-26 15:54:00 96 /min [facility] Body height 2021-12-26 15:54:00 165.1 cm [facility] Body weight 2021-12-26 15:54:00 120.203 kg [facility] BMI 2021-12-26 15:54:00 44.10 kg/m2 [facility] Respiratory rate 2021-11-11 23:50:00 25 /min [facility] Oxygen saturation in 2021-11-11 23:50:00 97 /min [facility] Arterial blood by Pulse oximetry Body temperature 2021-11-11 21:33:00 36.61 Staci [facility] Systolic blood 2021-04-22 16:51:00 132 mm[Hg] [facility] pressure Diastolic blood 2021-04-22 16:51:00 88 mm[Hg] [facility] Heart rate 2021-04-22 16:51:00 88 /min [facility] Body height 2021-04-22 16:51:00 165.1 cm [facility] Body weight 2021-04-22 16:51:00 117.482 kg [facility] BMI 2021-04-22 16:51:00 43.10 kg/m2 [facility] Body temperature 2020-07-21 21:35:00 36.17 Staci [facility] Respiratory rate 2020-07-21 21:35:00 16 /min [facility] Oxygen saturation in 2020-07-21 21:35:00 99 /min [facility] Arterial blood by Pulse oximetry Procedures Procedure Date / Time Performing Clinician Source Performed electrocardiogram 2022-06-05 00:00:00 [facility] Practice MRI, brain + pituitary, 2021-12-27 00:00:00 [facility] w/wo contrast Practice MRI, brain, w/ contrast 2021-12-20 00:00:00 [facility] URINE CULTURE 2021-11-28 16:45:00 Anabel Roldan I. [facility] SURGICAL PATHOLOGY REQUEST 2021-11-14 [facility] CO AN ELECTIVE ENDOTRACHEAL 2021-11-11 17:10:00 [facility] AIRWAY HYSTERECTOMY, ABDOMINAL, 2021-11-11 16:59:00 Anabel Roldan I. [facility] LAPAROSCOPIC, ROBOT-ASSISTED HC NERVE BLOCK TAP BLOCK 2021-11-11 16:55:03 Harrison [facility] BILAT INJECTION ABO AND RH CONFIRMATION BY 2021-11-11 15:40:00 RoldanAnabel Edna [facility] PROTOCOL Hysterectomy (Partial) 2021-11-11 00:00:00 [facility] COVID-19 QUALITATIVE RT-PCR 2021-11-09 18:55[facility]00 [facility] BASIC METABOLIC PANEL 2021-11-09 18:55[facility]00 [facility] 2021-11-09 18:55:00 [facility] [facility] HCG QUALITATIVE, SERUM 2021-11-09 18:55:00 [facility] SCREEN CBC HEMOGRAM 2021-11-09 18:55:00 Anabel Roldan I. [facility] HIV 1, 2 ANTIBODY 2021-11-09 18:55:00 [facility] SYPHILIS TREPONEMA SCREEN 2021-11-09 18:55:00 [facility]. [facility] WITH RPR CONFIRMATION (REVERSE ALGORITHM) HEPATITIS ACUTE PANEL 2021-11-09 18:55:00 RoldanAnabel I. [facility] TYPE AND SCREEN 2021-11-09 18:55:00 Anabel Roldan I. [facility] ESTIMATED GFR 2021-11-09 18:55:00 Scout [facility] Mort[facility]za electrocardiogram 2021-11-02 00:00:00 Village Fa juanita Practice CT ABDOMEN PELVIS W 2021-10-22 10:26:48 Ajay Cassidy [facility] CONTRAST [facility] CBC WITH DIFF 2021-10-22 09:34:00 Ajay Cassidy [facility] POCT TEST 2021-10-22 09:11:00 Ajay Cassidy [facility] LIPASE 2021-10-22 09:10:00 Ajay Cassidy [facility] COMP. METABOLIC PANEL 2021-10-22 09:10:00 Ajay Cassidy [facility] ([id number]) [facility] URINALYSIS 2021-10-22 09:10:00 Ajay Cassidy [facility] NOTICE OF PRIVACY PRACTICES 2021-10-22 09:02:23 Doctor Carlie carroll, [facility] [place] [facility] CONSENT/REFUSAL FOR 2021-10-22 08:51:54 Doctor Jerson [facility] DIAGNOSIS AND TREATMENT [place] [facility] POC , URINE 2021-09-05 13:33:00 Johanna Murguia [facility] PELVIC TRANSVAGINAL 2021-08-23 13:02:39 [facility] , URINE 2021-07-19 20:06:00 [place] [facility] CO INSERT INTRAUTERINE 2021-07-19 19:53:59 [place] [facility] DEVICE US PELVIC TRANSVAGINAL 2021-07-11 21:17:21 AlyJohanna [facility] SURGICAL PATHOLOGY REQUEST 2021-07-07 19:14:00 [facility] AN ELECTIVE SUPRAGLOTTIC 2021-07-07 15:30:00 Edna Enrique [facility] AIRWAY HYSTEROSCOPY, WITH DILATION 2021-07-07 15:22:00 [place] [facility] AND CURETTAGE OF UTERUS ECG 12-LEAD 2021-07-07 13:29:50 Scout [place] [facility] Morteza CBC WITH PLATELET AND 2021-07-05 18:10:00 Scout Cartagena [facility] DIFFERENTIAL [place] BASIC METABOLIC PANEL 2021-07-05 18:10:00 [facility] [place]za HEMOGLOBIN A1C 2021-07-05 18:10:00 [facility] Osiel [facility] Morteza HCG QUALITATIVE, SERUM 2021-07-05 18:10:00 Scout Osiel [facility] SCREEN [place] ESTIMATED GFR 2021-07-05 18:10:00 [facility] Osiel [facility] Mort[place] MRI, pituitary, w/wo 2021-05-16 00:00:00 [facility] Practice US PELVIC TRANSVAGINAL 2021-05-12 19:21:57 Johanna Murguia [facility] PROLACTIN LEVEL 2021-05-03 14:12:00 [facility] ABDOMEN PELVIS W 2021-05-03 00:00:00 Damian Montgomery [facility] CONTRAST FOLLICLE STIMULATING 2021-04-22 17:11:00 Johanna Murguia [facility] HORMONE LUTEINIZING HORMONE 2021-04-22 17:11:00 [facility]YRO[facility] HORMONE 2021-04-22 17:11:00 [facility] PROLACTIN LEVEL 2021-04-22 17:11:00 [facility] CBC HEMOGRAM 2021-04-22 17:11:00 [place] [facility] HPV DETECTION W/RLFX TO HPV 2020-12-03 16:00:00 [facility] NOE 16,18 & 45 ON HIGH-RISK electrocardiogram 2020-09-21 00:00:00 [facility] Practice CBC WITH PLATELET AND 2020-07-21 20:13:00 Anabelle Brian [facility] DIFFERENTIAL ESTIMATED GFR 2020-07-21 20:13:00 Anabelle Brian [facility] MANUAL DIFFERENTIAL 2020-07-21 20:13:00 Anabelle Brian [facility] COMPREHENSIVE METABOLIC 2020-07-21 20:13:00 Anabelle Brian [facility] PANEL HCG QUALITATIVE, SERUM 2020-07-21 20:13:00 Anabelle Brian [facility] SCREEN X-RAY OF SACRUM & COCCYX 2 2020-03-29 00:00:00 V illage [facility] VIEW Practice XR, hip + pelvis, bilateral 2020-03-29 00:00:00 [facility] electrocardiogram 2020-02-29 00:00:00 [facility] Tani grant Practice US, PELVIC COMPLETE 2019-07-14 00:00:00 [facility] Appendectomy 2010-03-19 00:00:00 [facility] Stephanie ly Practice Plan of Care Planned Activity Planned Date Details Comments Source Future Scheduled Test 2022-12-26 COVID-19 VACCINE ([address] [place] [address] 23:45:57 - Moderna series) [code = COVID-19 VACCINE (3 - Moderna series)] Future Scheduled Test 2022-12-26 INFLUENZA VACCINE [facility] 23:45:57 (#1) [code = INFLUENZA VACCINE (#1)] Future Scheduled Test 2022-12-26 Screening for [facility] 23:45:57 malignant neoplasm of cervix (procedure) [code = 382458798] Diagnostic Test 2022-06-05 HbA1c (hemoglobin [facility] Pending 00:00:00 A1c), blood [code = Practice HbA1c (hemoglobin A1c), blood] Diagnostic Test 2022-06-05 CMP, serum or [facility] Pending 00:00:00 plasma [code = CMP, Practice serum or plasma] Diagnostic Test 2022-06-05 CK (creatine [facility] Pending 00:00:00 kinase) isoenzymes, Practice serum [code = CK (creatine kinase) isoenzymes, serum] Diagnostic Test 2022-06-05 CBC w/ auto diff [facility] Pending 00:00:00 [code = CBC w/ auto Practice diff] Future Scheduled Test 2022-03-05 COVID-19 VACCINE (3 [facility] 11:33:14 - Booster for Moderna series) [code = COVID-19 VACCINE (3 - Booster for Moderna series)] Future Scheduled Test 2022-03-05 [facility] 11:33:14 malignant neoplasm of cervix (procedure) [code = 654826637] Future Scheduled Test 2021-04-25 Hepatitis C [facility] 01:12:59 screening (procedure) [code = 254900504] Future Scheduled Test 2021-04-25 COVID-19 VACCINE (3 [facility] 01:12:59 - Booster for Moderna series) [code = COVID-19 VACCINE (3 - Booster for Moderna series)] Future Scheduled Test 2021-04-25 Screening for [facility] 01:12:59 malignant neoplasm of cervix (procedure) [code = 609189750] Future Appointment 2023-02-23 Ashley Pacheco, [address] Family 11:00:00 Celestina Ridley; [address] [address] Instructions [facility] Encounters Start End Encounter Admission Attending Care Care Encounter Source Date/Time Date/Time Type Type Clinicians Facility Department ID 2022-12-06 2022-12-06 Outpatient Reddy_M_HOU VFP VFP [id number] [facility] 00:00:00 00:00:00 _ [id number] Family Practic e 2022-12-06 2022-12-06 Rafael Leeroy VFP [place] - [id number] [facility] 00:00:00 00:00:00 Guy Lopes MD: [facility] Medical [facility] e [facility] VM_HOU_N. d , [facility] 100, ([facility]) [place] [address] , Ph. 2022-09-02 2022-09-02 Outpatient Reddy_M_HOU VFP VFP [id number] [facility] 00:00:00 00:00:00 _ [id number] Family Practic e 2022-09-02 2022-09-02 Outpatient VFP VFP [id number] [facility] 00:00:00 00:00:00 [id number] Family Practic e 2022-09-02 2022-09-02 Outpatient VFP VFP [id number] [facility] 00:00:00 00:00:00 [id number] Family Practic e 2022-09-02 2022-09-02 Outpatient VFP VFP [id number] [facility] 00:00:00 00:00:00 13320 Family Practic e 2022-09-02 2022-09-02 Venecia VFP [place] - [id number] V illage 00:00:00 00:00:00 SULEIMAN Polo: [facility] Fam [address] [place] - e d , MIO_FÉLIX_Swetha [address], [facility] ([facility] [place] [address] , Ph. 2022-09-01 2022-09-01 Outpatient Reddy_M_HOU VFP VFP [id number] [facility] 00:00:00 00:00:00 _ [id number] Family Practic e 2022-08-06 2022-08-06 Outpatient Reddy_M VFP VFP [id number]- [id number] [facility] 00:00:00 00:00:00 [id number] Family Practic e 2022-08-06 2022-08-06 Outpatient VFP VFP [id number] [facility] 00:00:00 00:00:00 [id number] Family Practic e 2022-08-06 2022-08-06 Outpatient Reddy_M_HOU VFP VFP [id number] [facility] 00:00:00 00:00:00 _ [id number] Family Practic e 2022-08-06 2022-08-06 Venecia VFP [place] - [id number] V illage 00:00:00 00:00:00 Christ ASSISTANT CUSTOMER SERVICE MANAGER: Village [address] [place] - [place] d MIO Colvin_FÉLIX_Swetha [address], [facility] ([facility]) [place] [address] , Ph. 2022-07-22 2022-07-22 Outpatient VFP VFP [id number]- [id number] [facility] 00:00:00 00:00:00 [id number] Family Practic e 2022-07-22 2022-07-22 Outpatient Reddy_M VFP VFP [id number] [facility] 00:00:00 00:00:00 [id number] Family Practic e 2022-07-22 2022-07-22 Venecia VFP [place] - [id number] V illage 00:00:00 00:00:00 Christ ASSISTANT CUSTOMER SERVICE MANAGER: Village [address] [place] - [place] d MIO Colvin_FÉLIX_Swetha [address], [facility] ([facility]) [place] [address] , Ph. 2022-07-20 2022-07-20 Outpatient Reddy_M VFP VFP [id number] [facility] 00:00:00 00:00:00 [id number] Family Practic e 2022-06-05 2022-06-05 Ashley VFP [place] - [id number] V illage 00:00:00 00:00:00 MD Junior: [facility] [address] [place] [address] [place] yousif [address], JOSS_Jey Zhao [facility] [address] , Ph. 2022-06-04 2022-06-04 Outpatient Reddy_M VFP VFP [id number] [facility] 00:00:00 00:00:00 [id number] Family Practic e 2022-06-04 2022-06-04 Outpatient Reddy_M VFP VFP [id number]- [id number] [facility] 00:00:00 00:00:00 16118 Family Practic e 2022-06-04 2022-06-04 Outpatient Jaswani_S VFP VFP [id number] [facility] 00:00:00 00:00:00 09029 Family Practic e 2022-05-23 2022-05-23 Outpatient Reddy_M VFP VFP [id number] [facility] 00:00:00 00:00:00 13113 Family Practic e 2022-05-22 2022-05-22 Outpatient Reddy_M VFP VFP [id number] [facility] 00:00:00 00:00:00 [id number] Family Practic e 2022-05-22 2022-05-22 Outpatient Jaswani_S VFP VFP [id number] [facility] 00:00:00 00:00:00 08994 Family Practic e 2022-05-22 2022-05-22 Outpatient Jaswani_S VFP VFP [id number] [facility] 00:00:00 00:00:00 [id number] Family Practic e 2022-05-22 2022-05-22 Venecia VFP [place] - [id number] V illage 00:00:00 00:00:00 SULEIMAN Polo: [facility] [address] [facility] WEI - yousif [address], DAVID [address], [facility] ([facility] [place] [address] , Ph. 2022-03-03 2022-03-03 Outpatient Reddy_M VFP VFP [id number] [facility] 00:00:00 00:00:00 40525 Family Practic e 2022-03-03 2022-03-03 Outpatient Jaswani_S VFP VFP [id number] Village 00:00:00 00:00:00 [id number] Family Practic e 2022-03-03 2022-03-03 Venecia VFP [place] - [id number] V illage 00:00:00 00:00:00 SULEIMAN Polo: [facility] [address] [facility] [place] - e d , VM_FÉLIX_Attila. [address], [facility] ([facility] [place] [address] , Ph. 2022-02-24 2022-02-24 Outpatient Reddy_M VFP VFP [id number] [facility] 00:00:00 00:00:00 23919 Family Practic e 2022-02-24 2022-02-24 Outpatient Jaswani_S VFP VFP [id number] [facility] 00:00:00 00:00:00 [id number] Family Practic e 2022-02-24 2022-02-24 Ashley VFP [place] - [id number] V illage 00:00:00 00:00:00 MD Junior: [facility] [address] [place] [address] [address], VM_HOUKayla [facility] [address] , Ph. 2022-02-14 2022-02-14 Outpatient Jaswani_S VFP VFP [id number] [facility] 00:00:00 00:00:00 57306 Family Practic e 2022-02-14 2022-02-14 Outpatient Jaswani_S VFP VFP [id number] Village 00:00:00 00:00:00 [id number] Family Practic e 2022-02-14 2022-02-14 Venecia VFP [place] - [id number] V illage 00:00:00 00:00:00 Christ, ASSISTANT CUSTOMER SERVICE MANAGER: [address] [place] - e d , VM_AZIZAU_Swetha [address], [facility] ([facility] [address] , Ph. 2022-01-21 2022-01-21 Outpatient Jaswani_S VFP [facility] [id number] [facility] 00:00:00 00:00:00 [id number] Family Practic e 2022-01-21 2022-01-21 Carmela [facility] [place] - [id number] [facility] 00:00:00 00:00:00 [facility] Francisco, ASSISTANT CUSTOMER SERVICE MANAGER: Medical - [facility] [address] VM_FÉLIX_NEdna [address], [place] [address], ([facility]) [place] [address] , Ph. 2022-01-20 2022-01-20 Outpatient Jaswani_S VFP [facility] [id number] [facility] 00:00:00 00:00:00 [id number] Family Practic e 2021-12-26 2021-12-26 Office Roldan, 1.2.840.1 [id number] 2521 Methodi 10:45:00 11:18:19 Visit Anabel De La Cruz 02030.1.[address] 3.430.2.7 Hospit a .3.579597 l .8 2021-12-26 2021-12-26 Office Roldan, 1.2.840.1 [id number] 7989 Methodi 10:45:00 11:18:19 Visit Anabel De La Cruz 35193.1.[address] 3.430.2.7 Hospit a .3.650209 l .8 2021-12-26 2021-12-26 Travel 1.2.840.1 1.2.627.149 9158 600707 Methodi 00:00:00 00:00:[address] 3.430.2.7 0.2.7.3.698 Ho spita .3.929536 084.8 l .8 2021-12-26 2021-12-26 Travel 1.2.840.1 1.2.968.645 9198 038666 Methodi 00:00:00 00:00:[address] 3.430.2.7 0.2.7.3.698 Ho spita .3.337192 084.8 l .8 2021-12-20 2021-12-20 Outpatient Jaswani_S VFP VFP [id number] [facility] 00:00:00 00:00:00 Family Practic e 2021-12-20 2021-12-20 Mary VFP [place] - [id number] V illage 00:00:00 00:00:00 [facility] Family Maribell MD: Medical - [address] [place] - e Fabiana LIEBERMAN_HOU_N. d , [place] [address], ([place]) [place] [address] , Ph. 2021-11-28 2021-11-28 Office Roldan, 1.2.840.1 [id number] 2183 Methodi 11:00:00 11:29:57 Visit Anabel De La Cruz 09422.1.[address] 3.430.2.7 Hospit a .3.165572 l .8 2021-11-28 2021-11-28 Travel 1.2.840.1 1.2.964.727 7199 702986 Methodi 00:00:00 00:00:[address] 3.430.2.7 0.2.7.3.698 Ho spita .3.854736 084.8 l .8 2021-11-14 2021-11-14 Telephone Wendi, 1.2.840.1 [id number] 2100 386396 Methodi 00:00:00 00:00:[address] 3.430.2.7 Hospit a .3.196723 l .8 2021-11-12 2021-11-12 Telephone Sadie, 1.2.840.1 [id number] 2100 213536 Methodi 00:00:00 00:00:[address] [place] 3.430.2.7 Hospit a .3.064295 l .8 2021-11-11 2021-11-11 Hospital [facility], 1.2.840.1 [id number] Methodi 09:24:00 23:59:00 Encounter Anabel De La Cruz 86362.1.1 752 s t 3.430.2.7 Hospit a .3.305902 l .8 2021-11-11 2021-11-11 Anesthesia TerryDeyaniraPieterPatrick 1.2.840.1 [id number] Methodi 11:59:00 16:22:00 Event Daniela Friend 15210.1.[address] 3.430.2.7 Hospit a .3.432821 l .8 2021-11-11 2021-11-11 Surgery [facility], 1.2.840.1 [id number] 3278 Methodi 11:35:00 15:45:00 Anabel Jono 99067.1.[address] 3.430.2.7 Hospit a .3.411922 l .8 2021-11-11 2021-11-11 Travel 1.2.840.1 1.2.885.754 8645 975096 Methodi 00:00:00 00:00:[address] 3.430.2.7 0.2.7.3.698 spita .3.366839 084.8 l .8 2021-11-10 2021-11-10 Prep for [facility], 1.2.840.1 [id number] 44152 Methodi 00:00:00 00:00:00 Surgery Anabel TavarezEdna 14623.1.[address] 3.430.2.7 Hospit a .3.118781 l .8 2021-11-09 2021-11-09 Pre-Admiss [facility], 1.2.840.1 [id number] 991 [id number] Methodi 13:30:00 14:30:00 ion Anabel Tavarez. 79461.1.[address] Testing 3.430.2.7 Hospit a .3.546655 l .8 2021-11-09 2021-11-09 Travel 1.2.840.1 1.2.863.013 5947 318621 Methodi 00:00:00 00:00:[address] 3.430.2.7 0.2.7.3.698 Ho spita .3.412138 084.8 l .8 2021-11-07 2021-11-07 Travel 1.2.840.1 1.2.081.538 2556 029299 Methodi 00:00:00 00:00:[address] 3.430.2.7 0.2.7.3.698 Ho spita .3.275530 084.8 l .8 2021-11-02 2021-11-02 Brock Ovalles_S [facility] [place] - [id number] [facility] 00:00:00 00:00:00 [place] [address] Famil y MD: [id number] Medical - Prac tic Hermes LIEBERMAN_FÉLIX_Edgar Evans , [place] [address] , Ph. 2021-11-01 2021-11-01 Outpatient Reddy_M VFP [facility] [id number] [facility] 00:00:00 00:00:00 11941 Family Practic e 2021-10-26 2021-10-26 Outpatient Reddy_M VFP [facility] [id number] [facility] 00:00:00 00:00:00 75463 Family Practic e 2021-10-25 2021-10-25 Consult Jamar 1.2.840.1 [id number] 0732 Methodi 13:30:00 13:53:36 Anabel I. 15236.1.[address] 3.430.2.7 Hospit a .3.334838 l .8 2021-10-25 2021-10-25 Prep for Orsak, 1.2.840.1 [id number] 16095 73396 Methodi 00:00:00 00:00:00 Surgery Jaqueline 16997.1.[address] 3.430.2.7 Hospit a .3.461607 l .8 2021-10-25 2021-10-25 Travel 1.2.840.1 1.2.482.593 3449 940689 Methodi 00:00:00 00:00:[address] 3.430.2.7 0.2.7.3.698 Ho spita .3.866272 084.8 l .8 2021-10-24 2021-10-24 Orders Aly 1.2.840.1 [id number] 3118 Methodi 00:00:00 00:00:00 Only Johanna 75238.1.1 064 Lo 3.430.2.7 Hospit a .3.595002 l .8 2021-10-22 2021-10-22 Emergency X [facility] ERT [id number] Univers 03:59:00 06:39:00 [facility] 2021-10-22 2021-10-22 Emergency [facility] 1.2.312.404 4250 4067 Univers 03:59:00 06:39:00 [facility] 350.1.13.10 ity [facility] 4.2.7.2.686 [facility] [id number] [place] [address] Branch 2021-10-20 2021-10-20 Telemedici Aly 1.2.840.1 [id number] Methodi 15:15:00 15:24:44 ne Johanna 36546.1.1 086 Lo 3.430.2.7 Hospit a .3.912223 l .8 2021 2021 Mary Charlette_Mi VF [place] - 450847-2 02 Village 00:00:00 00:00:00 [facility] Family Maribell MD: Medical - [address] VM_HO_N. e [place], ([facility]) [address], [facility] [place] [address] , Ph. 2021-10-01 2021-10-01 Venecia Martin [facility] [place] - 105036-1 02 Village 00:00:00 00:00:00 Christ, ASSISTANT CUSTOMER SERVICE MANAGER: [facility] [address] VM_HOU_N. e d , [place] [address], ([facility]) [facility] [address] , Ph. 2021-09-24 2021-09-24 Venecia Martin [facility] [place] - 395546-0 02 Village 00:00:00 00:00:00 Christ, ASSISTANT CUSTOMER SERVICE MANAGER: [facility] [address] VM_HOU_N. e d , [place] [address], ([facility]) [facility] [place] [address] , Ph. 2021-09-05 2021-09-05 Clinical Aly, 1.2.840.1 [id number] 74430 88055 Methodi 08:15:00 08:30:44 Support Johanna 27850.1.1 855 Lo 3.430.2.7 Hospit a .3.732212 l .8 2021-09-02 2021-09-02 Office Aly, 1.2.840.1 [id number] 1388 Methodi 09:45:00 10:18:11 Visit Johanna 00860.1.1 724 Lo 3.430.2.7 Hospit a .3.623500 l .8 2021-09-02 2021-09-02 Travel 1.2.840.1 1.2.906.066 0603 956299 Methodi 00:00:00 00:00:[address] 3.430.2.7 0.2.7.3.698 Ho spita .3.278488 084.8 l .8 2021-08-23 2021-08-23 Ancillary Aly, 1.2.840.1 [id number] 2099 489421 Methodi 07:30:00 07:56:44 Procedure Johanna 36427.1.1 154 Lo 3.430.2.7 Hospit a .3.582007 l .8 2021-08-23 2021-08-23 Travel 1.2.840.1 1.2.195.350 8442 095905 Methodi 00:00:00 00:00:[address] 3.430.2.7 0.2.7.3.698 Ho spita .3.850188 084.8 l .8 2021-08-20 2021-08-20 Venecia Ovalles_Mi VF [place] - 870265-8 02 Village 00:00:00 00:00:00 Christ, ASSISTANT CUSTOMER SERVICE MANAGER: [address] MIO_HOU_N. e [place], [place] [address], (WAG) [facility] [place] [address] , Ph. 2021-08-19 2021-08-19 Orders Aly, 1.2.840.1 [id number] 5265 Methodi 00:00:00 00:00:00 Only Johanna 47494.1.1 397 Lo 3.430.2.7 Hospit a .3.102329 l .8 2021-07-19 2021-07-19 Office Aly, 1.2.840.1 [id number] 232313 9550 Methodi 14:45:00 14:56:18 Visit Johanna 74378.1.1 862 Lo 3.430.2.7 Hospit a .3.222735 l .8 2021-07-19 2021-07-19 Office Aly, 1.2.840.1 [id number] 755584 1704 Methodi 11:15:00 11:29:08 Visit Johanna 13472.1.1 619 Lo 3.430.2.7 Hospit a .3.791482 l .8 2021-07-18 2021-07-18 Outpatient Reddy_M VFP [facility] [id number] [facility] 12:35:00 12:35:00 Family Practic e 2021-07-15 2021-07-15 Ashley Redandria_M [facility] [id number] [facility] 00:00:00 00:00:00 MD Junior: Village [facility] regan [address] [facility] _HOU_Memo e [address], [place] [address] , Ph. 2021-07-11 2021-07-11 Office Aly, 1.2.840.1 [id number] 2575 Methodi 16:30:00 16:47:22 Visit Johanna 98272.1.1 628 Lo 3.430.2.7 Hospit a .3.900562 l .8 2021-07-11 2021-07-11 Ancillary Aly, 1.2.840.1 [id number] 2100 467057 Methodi 16:00:00 16:25:41 Procedure Johanna 34870.1.1 627 Lo 3.430.2.7 Hospit a .3.046461 l .8 2021-07-11 2021-07-11 Travel 1.2.840.1 1.2.645.682 6536 043768 Methodi 00:00:00 00:00:[address] 3.430.2.7 0.2.7.3.698 Ho spita .3.079328 084.8 l .8 2021-07-11 2021-07-11 Orders Jourdeirdre, 1.2.840.1 [id number] 84359 Methodi 00:00:00 00:00:00 Only Sharaya 80219.1.[address] 3.430.2.7 Hospit a .3.157770 l .8 2021-07-07 2021-07-07 Hospital Aly, 1.2.840.1 [id number] Methodi 07:11:00 14:30:00 Encounter Johanna 05476.1.1 594 Lo 3.430.2.7 Hospit a .3.699174 l .8 2021-07-07 2021-07-07 Surgery Aly, 1.2.840.1 [id number] 026109 5807 Methodi 10:00:00 12:00:00 Johanna 37509.1.1 363 Lo 3.430.2.7 Hospit a .3.861763 l .8 2021-07-07 2021-07-07 Anesthesia Qasim Raheel Kingg 1.2.840.1 72070 1029 [id number] Methodi 10:22:00 11:31:00 Event Arianne Castaneda 04820.1.[address] 3.430.2.7 Hospit a .3.661946 l .8 2021-07-07 2021-07-07 Travel 1.2.840.1 1.2.463.832 3029 737324 Methodi 00:00:00 00:00:[address] 3.430.2.7 0.2.7.3.698 Ho spita .3.014254 084.8 l .8 2021-07-05 2021-07-05 Pre-Admiss Aly, 1.2.840.1 [id number] 633 [id number] Methodi 13:30:00 14:30:00 ion Johanna 49358.1.[address] Testing Hector 3.430.2.7 Hospit a .3.228615 l .8 2021-07-05 2021-07-05 Orders Aly, 1.2.840.1 [id number] 164349 1158 Methodi 00:00:00 00:00:00 Only Johanna 54148.1.1 085 Lo 3.430.2.7 Hospit a .3.730213 l .8 2021-07-05 2021-07-05 Telephone Journet, 1.2.840.1 [id number] 256 [id number] Methodi 00:00:00 00:00:[address] 3.430.2.7 Hospit a .3.279718 l .8 2021-07-05 2021-07-05 Travel 1.2.840.1 1.2.167.437 7521 736441 Methodi 00:00:00 00:00:[address] 3.430.2.7 0.2.7.3.698 Ho spita .3.922760 084.8 l .8 2021-06-30 2021-06-30 Telemedici Aly, 1.2.840.1 [id number] 972 9142409 Methodi 13:30:00 13:30:11 ne Johanna 39077.1.1 830 oL 3.430.2.7 Hospit a .3.979356 l .8 2021-06-30 2021-06-30 Prep for Aly, 1.2.840.1 [id number] 74414 40714 Methodi 00:00:00 00:00:00 Surgery Johanna 56465.1.1 075 Lo 3.430.2.7 Hospit a .3.087977 l .8 2021-06-16 2021-06-16 Zahira Reddy_M [facility] [id number] [facility] 00:00:00 00:00:00 [facility] Famil y PA: 9055 Medical - Pract raulito LIEBERMAN_HOU_[facility], [facility] [address], [place] [address] , Ph. 2021-05-25 2021-05-25 Outpatient Reddy_M [facility] 280484- [facility] 07:18:00 07:18:00 Family Practic e 2021-05-25 2021-05-25 Telephone Journet, 1.2.840.1 [id number] 999 [id number] Methodi 00:00:00 00:00:[address] 3.430.2.7 Hospit a .3.904903 l .8 2021-05-25 2021-05-25 Travel 1.2.840.1 1.2.085.980 1024 835451 Methodi 00:00:00 00:00:[address] 3.430.2.7 0.2.7.3.698 Ho spita .3.141035 084.8 l .8 2021-05-20 2021-05-20 Orders Journet, 1.2.840.1 [id number] Methodi 00:00:00 00:00:00 Only Mary Grace [address]99.1.[address] 3.430.2.7 Hospit a .3.332229 l .8 2021-05-16 2021-05-16 Yary Chino Reddy_M VFP ID - [id number] [facility]:00[facility]00 00:00[facility]00 [facility]: 9055 Medical - Pract ic Celestina LIEBERMAN_U_[facility], [facility] [address], [place] [address] , Ph. 2021-05-15 2021-05-15 Outpatient Reddy_M VFP P [id number]- [facility] 11:37:00 11:37:00 35828 Family Practic e 2021-05-13 2021-05-13 Outpatient Reddy_M VFP VFP [id number]- [facility] 12:35:00 12:35:00 67997 Family Practic e 2021-05-12 2021-05-12 Procedure Aly, 1.2.840.1 [id number] [id number] Methodi 13:45:00 14:07:44 visit Johanna 66018.1.1 946 Lo 3.430.2.7 Hospit a .3.489545 l .8 2021-05-12 2021-05-12 Ancillary Aly, 1.2.840.1 [id number] 2099 [id number] Methodi 13:00:00 13:29:52 Procedure Johanna 42645.1.1 947 Lo 3.430.2.7 Hospit a .3.085232 l .8 2021-05-12 2021-05-12 Travel 1.2.840.1 1.2.948.016 8497 076767 Methodi 00:00:00 00:00:[address] 3.430.2.7 0.2.7.3.698 Ho spita .3.175121 084.8 l .8 2021-05-05 2021-05-05 Outpatient Reddy_M VFP VF [id number]- [facility] 10:06:00 10:06:00 Family Practic e 2021-05-04 2021-05-04 Outpatient Reddy_M VFP VFP [id number] [facility] 12:42:00 12:42:00 68060 Family Practic e 2021-05-03 2021-05-03 Outpatient [facility] [id number] 667 Edward 00:00:00 00:00:[address] 2021-05-03 2021-05-03 Orders Ulises, 1.2.840.1 [id number] Methodi 00:00:00 00:00:00 Only Damian H. 64372.1.[address] 3.430.2.7 Hospit a .3.173998 l .8 2021-05-03 2021-05-03 Travel 1.2.840.1 1.2.890.558 2937 018068 Methodi 00:00:00 00:00:[address] 3.430.2.7 0.2.7.3.698 Ho spita .3.269796 084.8 l .8 2021-05-02 2021-05-02 Ashley Reddy_M VFP ID - [id number] 00:00:00 00:00:00 MD Junior: [facility] regan 9055 [facility], _HOU_Memo e [address], [place] [address] , Ph. 2021-04-26 2021-04-26 Telephone Aly 1.2.840.1 [id number] [id number] Methodi 00:00:00 00:00:00 Johanna 48274.1.1 197 Lo 3.430.2.7 Hospit a .3.496666 l .8 2021-04-25 2021-04-25 Orders Journet, 1.2.840.1 [id number] Methodi 00:00:00 00:00:00 Only Mary Grace [address]00.1.[address] 3.430.2.7 Hospit a .3.614727 l .8 2021-04-22 2021-04-22 Office Aly, 1.2.840.1 [id number] 1192 Methodi 10:45:00 11:17:23 Visit Johanna 89384.1.1 459 Lo 3.430.2.7 Hospit a .3.578062 l .8 2021-04-22 2021-04-22 Travel 1.2.840.1 1.2.020.315 1995 [id number] Methodi 00:00:00 00:00:[address] 3.430.2.7 0.2.7.3.698 Ho spita .3.747560 084.8 l .8 2021-03-28 2021-03-28 Outpatient Jaswani_S VFP VFP [id number] [facility] 03:23:00 03:23:00 Family Practic e 2021-03-25 2021-03-25 Outpatient Reddy_M VFP VFP [id number]- [facility] 08:27:00 08:27:00 Family Practic e 2021-03-23 2021-03-23 Indio Magana. 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 2021-03-16 2021-03-16 Vernell Reddy_M VFP [place] - [id number] [facility] 00:00:00 00:00:00 ANISH Chiang: [place] [id number] [facility] regan 57475 Medical - Practi c Alexys VM_HOU_Ch[address] ([facility]) [place] [address] , Ph. 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 2021-03-09 2021-03-09 Outpatient Jaswani_S VFP VFP [id number] [facility] 10:05:00 10:05:00 89849 Family Practic e 2021-02-25 2021-02-25 Ashley Reddy_M VFP [facility] [id number] [facility] 00:00:00 00:00:00 MD Junior: [place] [id number] [facility] regan 9055 [facility], VM_HOU_Memo e [address], [place] [address] , Ph. 2021-02-22 2021-02-22 Outpatient Reddy_M VFP P [id number]- [facility] 05:27:00 05:27:00 30758 Family Practic e 2021-01-26 2021-01-26 Outpatient Jaswani_S VFP VFP [id number] [facility] 06:16:00 06:16:00 16421 Family Practic e 2020-12-03 2020-12-03 Office Aly, 1.2.840.1 [id number] 8207 Methodi 10:38:08 10:55:14 Visit Johanna 71428.1.1 354 Lo 3.430.2.7 Hospit a .3.229207 l .8 2020-12-03 2020-12-03 Travel 1.2.840.1 1.2.922.389 8016 083476 Methodi 00:00:00 00:00:[address] 3.430.2.7 0.2.7.3.698 Ho spita .3.812239 084.8 l .8 2020-11-16 2020-11-16 Outpatient Redandria_M VFP VFP [id number] [facility] 03:59:00 03:59:00 53393 Family Practic e 2020-11-15 2020-11-15 Magdy Randle Scarbrough_ VFP [place] - 66009 [facility] 00:00:00 00:00:[address] [facility] 18575 [facility] regan , DO: Medical - Practi c 39625 VM_HOU_Cypr e [place] Antolin Loza ([facility]) Chris, [place] [address] , Ph. 2020-11-13 2020-11-13 Outpatient Scarbrough_ VFP VFP 840 [facility] 11:35:00 11:35:00 [facility] 35158 Family Practic e 2020-11-10 2020-11-10 Outpatient Scarbrough_ VFP VFP 840 [facility] 11:09:00 11:09:00 [facility] 64783 Family Practic e 2020-11-09 2020-11-09 Magdy Randle Scarbrough_ VFP [place] - 72339 [facility] 00:00:00 00:00:[address] [facility] 56260 [facility] regan DO: Medical - Practi c 58726 VM_HOU_Cypr e [place] Antolin Loza ([facility]) Chris, [place] [address] , Ph. 2020-11-04 2020-11-04 Anuj Albrecht Scarbrough_ VFP [place] - 8405 [facility] 00:00:00 00:00:[address] [facility] 68756 [facility] regan butcher MD: Medical - Practi c 8810 VM_HOU_Inwo e Frandy barraza ([facility]) [place] [address] , Ph. 2020-11-04 2020-11-04 [facility], 1.2.840.1 [id number] [id number] Methodi 00:00:00 00:00:[address] 3.430.2.7 Hospit a .3.498391 l .8 2020-11-04 2020-11-04 Telephone Journet, 1.2.840.1 [id number] [id number] Methodi 00:00:00 00:00:[address] 3.430.2.7 Hospit a .3.496388 l .8 2020-11-04 2020-11-04 Telephone Journet, 1.2.840.1 [id number] Methodi 00:00:00 00:00:[address] 3.430.2.7 Hospit a .3.860322 l .8 2020-10-11 2020-10-11 Outpatient Scarbrough_ VFP VFP 840 567-202 [facility] 02:47:00 02:47:00 CALEB 91166 Family Practic e 2020-09-23 2020-09-23 Outpatient Scarbrough_ VFP VFP 840 567-202 [facility] 06:01:00 06:01:00 CALEB 76767 Family Practic e 2020-09-21 2020-09-21 Anabel Leblanc Reddy_M VFP [place] - [id number] 02 [facility] 00:00:00 00:00:00 [facility] [address] [facility] MD: 9055 Medical - [facility] [place] [address] , Ph. 2020-09-20 2020-09-20 Outpatient Reddy_M VFP VFP [id number]- 202 [facility] 01:26:00 01:26:00 91470 Family Practic e 2020-09-11 2020-09-11 Miguel Pendleton Reddy_M VFP [place] - 468165-966 [facility] 00:00:00 00:00:00 MD Yesika: [place] [id number] Famil y 8810 Medical - Practi muriel LIEBERMAN_FÉLIX_Prateek dodd Dr, od ([facility]) [place] [address] , Ph. 2020-09-10 2020-09-10 Outpatient Scarbrough_ VFP VFP 840 567- [facility] 08:16:00 08:16:00 CALEB 44907 Family Practic e 2020-09-07 2020-09-07 Glenda Sol Scarbrough_ VFP ID - [id number] [facility] 00:00:00 00:00:00 CALEB Gtz [facility] [address]9899 [facility] : 8810 Medical - Pract Frandy _HOU_Inrustam dodd Dr, od ([facility]) [place] [address] , Ph. 2020-07-21 2020-07-21 [facility] 064 2099 489101 Edward 00:00:00 00:00:00 CAROLINA [address] 2020-07-21 2020-07-21 Travel 1.2.840.1 1.2.646.922 7821 700074 Methodi 00:00:00 00:00:[address] 3.430.2.7 0.2.7.3.698 Ho spita .3.491403 084.8 l .8 2020-06-08 2020-06-08 Outpatient Reddy_M VFP VFP [id number]- [facility] 07:11:00 07:11:00 94210 Family Practic e 2020-06-02 2020-06-02 Ashley Reddy_M VFP ID - [id number] [facility] 00:00:00 00:00:00 MD Junior: [facility] [address] [facility] regan 9055 [place] [facility] - Prac tic [facility], VM_HOU_Memo e [address], [place] [address] , Ph. 2020-06-01 2020-06-01 Outpatient Scarbrough_ VFP VFP 840 567- [facility] 06:40:00 06:40:00 CALEB 81363 Family Practic e 2020-03-31 2020-03-31 Outpatient Reddy_M VFP VFP [id number] [facility] 06:22:00 06:22:00 28874 Family Practic e 2020-03-29 2020-03-29 Deana Reddy_M VFP [facility] [id number] [facility] 00:00:00 00:00:00 [facility] [address] Famil y Kimi Medical - Practi muriel MD: 9055 VM_HOU_Memo e [place] [facility], [address], [place] [address] , Ph. 2020-03-26 2020-03-26 Outpatient Pedroza_R_W VFP VFP 84 567- [facility] 04:15:00 04:15:00 AG 16922 Family Practic e 2020-03-08 2020-03-08 Outpatient Pedroza_R_W VFP VFP [facility] 567 [facility] 01:26:00 01:26:00 AG 17541 Family Practic e 2020-03-03 2020-03-03 Ashley Reddy_M VFP [facility] [address] 00:00:00 00:00:00 MD Junior: [facility] [address] [facility] 9055 [place] [facility], VM_HOU_Memo e [address] [address] , Ph. 2020-03-02 2020-03-02 Outpatient Reddy_M VFP [facility] 839594- [address] [place] [address] 09:35:00 09:35:00 43908 Family Practic e 2020-03-01 2020-03-01 Pippa Reddy_M VFP [facility] 320673-[address] [place] [address] 00:00:00 00:00:00 MD Polina: [facility] [address] [facility] 9511 Medical - Practi c Jessica VM_HOU_Cypr e r , [facility] [address], [place] [address] , Ph. 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 2020-02-10 2020-02-10 Outpatient Reddy_M VFP P [id number] [facility] 05:41:00 05:41:00 77246 Family Practic e 2020-02-07 2020-02-07 Kari Pedroza_R_W VFP [facility] [id number] [facility] 00:00:00 00:00:00 Talita [facility] [address] Family Nard, ASSISTANT CUSTOMER SERVICE MANAGER: Medical - Prac tic 61778 VM_HOU_Cypr e [place] ervin Loza ([facility]) Chris, [place] [address] , Ph. 2020-02-06 2020-02-06 Outpatient Pedroza_R_W VFP VFP 840 567 [facility] 04:22:00 04:22:00 09853 Family Practic e 2020-02-02 2020-02-02 Outpatient ALY, [facility] [id number] 185 Edward 00:00:00 00:00:00 JOHANNA [address] 2020-01-26 2020-01-26 Outpatient [facility] [id number] 941 Edward 00:00:00 00:00:00 JOHANNA [address] 2020-01-05 2020-01-05 Outpatient [facility] [id number] 109 Edward 00:00:00 00:00:00 JOHANNA [address] 2019-11-05 2019-11-05 Outpatient Reddy_M VFP [facility] [id number] [facility] 07:42:00 07:42:00 82814 Family Practic e 2019-10-31 2019-10-31 Alexa T Reddy_M VFP [facility] [id number] [facility] 00:00:00 00:00:00 Judd, [facility] [address] Famil y PA: 365[address] Medical - Prac tic [place] [facility] [place] [address], [place] [address] , Ph. 2019-08-15 2019-08-15 Outpatient Reddy_M VFP P [id number] [facility] 07:02:00 07:02:00 60601 Family Practic e 2019-08-12 2019-08-12 Ashley VFP [place] - 757507-477 [facility] 00:00:00 00:00:00 MD Junior: [facility] regan Gómez55 [facility], VM_HOU_Memo e [address], [place] [address] , Ph. 2019-07-28 2019-07-28 Outpatient Reddy_M VFP VFP [id number]- [facility] 02:40:00 02:40:00 62014 Family Practic e 2019-07-15 2019-07-15 Outpatient Reddy_M VFP VFP [id number] [facility] 10:02:00 10:02:00 86920 Family Practic e 2019-07-14 2019-07-14 Ashley Reddy_M VFP [place] - [id number] [facility] 00:00:00 00:00:00 MD Junior: [facility] regan 9055 [facility], VM_HOU_Memo e [address], [place] [address] , Ph. 2019-07-11 2019-07-11 Ashley Reddy_M VFP [place] - [id number] [facility] 00:00:00 00:00:00 MD Junior: [facility] regan 9055 [facility], VM_HOU_Memo e [address], [place] [address] , Ph. 2019-07-10 2019-07-10 Outpatient Reddy_M VFP VFP [id number]- 202 [facility] 10:00:00 10:00:00 19132 Family Practic e Results Test Description Test Time Test Comments Results Result Comments Source Influenza virus A and B and SARS-CoV+SARS-CoV-2 (COVID -19) 2022-05-22 19:25:08 panel - Upper respiratory specimen by Rapid immunoassay Test Item Value Reference Range Interpretation Comme nts Influenza A (test code = Influenza A) Presumptive Negative Influenza B (test code = Influenza B) Presumptive Negative SARS-CoV-2 Antigen (test code = SARS-CoV-2 Antigen) Presumptive Neg [facility] A and B and SARS-CoV+SARS-CoV-2 (COVID- 19) Ag panel - Upper respiratory specimen by Rapid [id number] 19:25:08 Test Item Value Reference Range Interpretation Comments Influenza A (test code = Presumptive Negative Influenza A) Influenza B (test code = Presumptive Negative Influenza B) SARS-CoV-2 Antigen (test Presumptive Negative code = SARS-CoV-2 Antigen) [facility] A and B and SARS-CoV+SARS-CoV-2 (COVID- 19) Ag panel - Upper respiratory specimen by Rapid [id number] 18:44:54 Test Item Value Reference Range Interpretation Comments Influenza A (test code = Presumptive Negative Influenza A) Influenza B (test code = Presumptive Negative Influenza B) SARS-CoV-2 Antigen (test Presumptive Negative code = SARS-CoV-2 Antigen) [facility] group A, [id number] 18:33:49 Test Item Value Reference Range Interpretation Comments Strep (test code = Strep) negative [facility]Hemoglobin A1c/Hemoglobin.total in [id number] 00:00:00 Test Item Value Reference Range Interpretation Comments Hemoglobin A1c/Hemoglobin.total in 6.5 % 1.0-5.7 H Blood (test code = 4548-4) average blood glucose (calculation) 140 mg/dL (test code = average blood glucose (calculation)) [facility]Prolactin [Mass/volume] in Serum or [id number] 00:00:00 Test Item Value Reference Range Interpretation Comments prolactin (test code = prolactin) 23.1 NG/mL 4.8-23.3 [facility]Prol[facility] [Mass/volume] in Serum or [id number] 00:00:00 Test Item Value Reference Range Interpretation Comments prolactin (test code = prolactin) 23.1 NG/mL 4.8-23.3 [facility] SouthwestUrinalysis macro (dipstick) panel - [id number] 16:08:00 Test Item Value Reference Range Interpretation Comments Color Color (test code = Color yellow Color) Color Appearance (test code = Color clear Appearance) Color Glucose (test code = Color negative Glucose) Color Bilirubin (test code = Color negative Bilirubin) Color Ketones (test code = Color negative Ketones) Color Specific Seneca (test code = 1.025 Color Specific Seneca) Color Blood (test code = Color negative Blood) Color PH (test code = Color PH) 6.5 Color Protein (test code = Color negative Protein) Color Urobilinogen (test code = 0.2 Color Urobilinogen) Color Nitrites (test code = Color negative Nitrites) Color Leukocytes (test code = Color negative Leukocytes) [facility] Southwest[facility]inalysis macro (dipstick) panel - [id number] 16:08:00 Test Item Value Reference Range Interpretation Comments Color Color (test code = Color yellow Color) Color Appearance (test code = Color clear Appearance) Color Glucose (test code = Color negative Glucose) Color Bilirubin (test code = Color negative Bilirubin) Color Ketones (test code = Color negative Ketones) Color Specific Seneca (test code = 1.025 Color Specific [place]) Color Blood (test code = Color negative Blood) Color PH (test code = Color PH) 6.5 Color Protein (test code = Color negative Protein) Color Urobilinogen (test code = 0.2 Color Urobilinogen) Color Nitrites (test code = Color negative Nitrites) Color Leukocytes (test code = Color negative Leukocytes) [facility] SouthwestThyrotropin [Units/volume] in Serum or [id number] 00:00:00 Test Item Value Reference Range Interpretation Comments TSH (test code = TSH) 0.903 uIU/mL 0.350-4.940 [facility]Com[facility] metabolic 2000 panel - Serum or Plasma [...] (test code = anion gap) 12 calc [facility] SouthwestLipid 1996 panel - Serum or [id number] 00:00:00 Test Item Value Reference Range Interpretation [...] Serum or Plasma (test code = 2089-1) [facility] SouthwestCBC W Auto Differential panel - [id number] 00:00:00 Test Item Value Reference Range Interpretation [...] (test code = baso#) 0.06 x10*3/?L 0.01-0.08 [facility]Thyrotropin [Units/volume] in Serum or [id number] 00:00:00 Test Item Value Reference Range Interpretation Comments TSH (test code = TSH) 0.903 uIU/mL 0.350-4.940 [facility]Com[facility] 2000 panel - Serum or Plasma [...] (test code = anion gap) 12 calc [facility] SouthwestLipid 1996 panel - Serum or [id number] 00:00:00 Test Item Value Reference Range Interpretation [...] Serum or Plasma (test code = 2089-1) [facility] strep group A, [id number] 19:23:00 Test Item Value Reference Range Interpretation Comments Strep (test code = Strep) negative [facility] group A, [id number] 19:23:00 Test Item Value Reference Range Interpretation Comments Strep (test code = Strep) negative [facility] SouthwestHemoglobin A1c/Hemoglobin.total in [id number] 00:00:00 Test Item Value Reference Range Interpretation Comments Hemoglobin A1c/Hemoglobin.total in 6.3 % 1.0-5.7 H Blood (test code = 4548-4) average blood glucose (calculation) 134 mg/dL (test code = average blood glucose (calculation)) [facility] SouthwestUrine [id number] 09:35:00 Test Item Value Reference Range Interpretation Comments Urine culture (test No growth code = 630-4) SANIYA (test code = SANIYA) Performed at: [facility] [id number] Director: Cedrick Arias MD, Phone: [phone] [facility] [id number] 20:50:01 Test Item Value Reference Range Interpretation Comments Case number (test code = [id number]) Surgical pathology See link below for report (test code = PDF Lab Report 5024) Result status (test code This is Final Report = [id number]) for [id number] [facility] (COVID-19) RNA [Presence] in Respiratory specimen by ROHINI with probe [id number] 23:03:55 Test Item Value Reference Range Interpretation Comments SARS-CoV-2 (COVID-19) RNA Not detected [Presence] in Respiratory specimen by ROHINI with probe detection (test code = 23875-6) Whether patient is employed in a Unknown healthcare setting (test code = 88266-5) Whether the patient has symptoms Unknown related to condition of interest (test code = 80830-0) Whether the patient was Unknown hospitalized for condition of interest (test code = 51065-9) Whether the patient was admitted Unknown to intensive care unit (ICU) for condition of interest (test code = 60944-6) Whether patient resides in a Unknown congregate care setting (test code = 96490-3) status (test code = Unknown 48662-5) Date and time of symptom onset Unknown (test code = 22298-2) [facility]inal[facility] macro (dipstick) panel - [id number] 10:23:59 Test Item Value Reference Range Interpretation Comments Color Color (test code = Color yellow Color) Color Appearance (test code = Color clear Appearance) Color Glucose (test code = Color negative Glucose) Color Bilirubin (test code = Color negative Bilirubin) Color Ketones (test code = Color trace Ketones) Color Specific Seneca (test code = 1.015 Color Specific [place]) Color Blood (test code = Color large Blood) Color PH (test code = Color PH) 5.5 Color Protein (test code = Color negative Protein) Color Urobilinogen (test code = 0.2 Color Urobilinogen) Color Nitrites (test code = Color negative Nitrites) Color Leukocytes (test code = Color negative Leukocytes) [facility] with Oezrsqcszeuk5822-79-93 09:54:24 Test Item Value Reference Range Interpretation [...] RDW-SD (test code = 40.1 fL 39-49.9 47984-3) RDW-CV (test code = 13.8 % 12-15.5 788-0) PLT (test code = See_Comment [Automated 777-3) message] The sy stem which generated this result transmitted reference range : 166 - 358 10*3/ ?L. The reference r christen was not used to interpret this result as normal/abnormal . MPV (test code = 9.7 fL 9.5-12.9 28231-3) NRBC/100 WBC (test See_Comment [Automat ed code = 1976010910) message] The system which generated this result transmitted reference range : 0.0 - 10.0 /100 WBCs. The refer ence range was not u sed to interpret th is result as normal/abnormal . NRBC x10^3 (test code See_Comment [Auto mated = 0682161833) message] The s ystem which generated this result transmitted reference range : 10*3/?L. The reference range was not used to interpret this result as normal/abnormal . GRAN MAT (NEUT) % 50.1 % (test code = 770-8) IMM GRAN % (test code 0.30 % = 3462674667) LYMPH % (test code = 40.3 % 736-9) MONO % (test code = 8.4 % 5905-5) EOS % (test code = 0.5 % 713-8) BASO % (test code = 0.4 % 706-2) GRAN MAT x10^3(ANC) 6.96 10*3/uL 1.88-7.09 (test code = 9525878428) IMM GRAN x10^3 (test 0.04 10*3/uL 0-0.06 code = 9857010955) LYMPH x10^3 (test code 5.59 10*3/uL 1.32-3.29 H = 731-0) MONO x10^3 (test code 1.16 10*3/uL 0.33-0.92 H = 742-7) EOS x10^3 (test code = 0.07 10*3/uL 0.03-0.39 711-2) BASO x10^3 (test code 0.06 10*3/uL 0.01-0.07 = 704-7) Lab Interpretation Abnormal (test code = 04732-3) [id number] 09:11:00 Test Item Value Reference Range Interpretation Comments POCT PREG (test code = 1605) Negative On board controls acceptable with Present C Line (test code = 3574) POCT PREG LOT # (test code = 3575) [id number] POCT PREG TEST DATE (test 01/16/2023 code = 3576) Lab Interpretation (test code = Normal 08753-0) [facility] Auto Differential panel - Blood 2021-09-25 [...] Blood by Automated count (test code = 70755-8) Immature granulocytes 0.0 x10e3/uL 0.0-0.1 [#/volume] in Blood by Automated count (test code = 05167-2) [facility] 2000 panel - Serum or Plasma [...] in Serum or Plasma (test code = 2027-) Calcium [Mass/volume] in 9.8 mg/dL 8.7-10.2 Serum or Plasma (test code = 42635-2) Protein [Mass/volume] in 7.6 g/dL 6.0-8.5 Serum or Plasma (test code = 2885-2) Albumin [Mass/volume] in 4.8 g/dL 3.8-4.8 Serum or Plasma (test code = 1751-7) Globulin [Mass/volume] in 2.8 g/dL 1.5-4.5 Serum by calculation (test code = 84715-0) Albumin/Globulin [Mass Ratio] 1.7 1.2-2.2 in Serum or Plasma (test code = 1759-0) Bilirubin.total [Mass/volume] 0.2 mg/dL 0.0-1.2 in Serum or Plasma (test code = 1974-) Alkaline phosphatase 57 IU/L 44-121 [Enzymatic activity/volume] in Serum or Plasma (test code = 6768-6) Aspartate aminotransferase 18 IU/L 0-40 [Enzymatic activity/volume] in Serum or Plasma (test code = 1920-8) Alanine aminotransferase 19 IU/L 0-32 [Enzymatic activity/volume] in Serum or Plasma (test code = 1742-6) [facility] SouthwestThyrotropin [Units/volume] in Serum or Plasma by Detection limit <= 0.005 mIU/N5247-13-75 00:00:00 Test Item Value Reference Range Interpretation Comments Thyrotropin [Units/volume] in 1.830 uIU/mL 0.450-4.500 Serum or Plasma by Detection limit <= 0.005 mIU/L (test code = 77379-2) [facility] SouthwestP[facility] , pavxm6693-73-83 13:33:00 Test Item Value Reference Range Interpretation Comments test urine, POC (test Negative code = 2515268) Internal QC (test code = 257) QC acceptable [facility] gvin1130-96-29 03:39:18 Test Item Value Reference Range Interpretation Comments Ventricular rate (test code = 253) Atrial rate (test code = 255) CO interval (test code = 266) QRSD interval (test code = 260) QT interval (test code = 264) QTC interval (test code = 265) P axis 1 (test code = 267) QRS axis 1 (test code = 268) T wave axis (test code = 270) EKG impression (test Normal sinus code = 273) rhythm-Normal ECG-- [facility] [[facility]/volume] in Thhvlw0922-03-62 00:00:00 Test Item Value Reference Range Interpretation Comments acth, plasma (test code = acth, 33 pg/mL 6-50 plasma) [facility] SouthwestCorticotropin [Mass/volume] in Pqcjqi7028-72-44 00:00:00 Test Item Value Reference Range Interpretation Comments acth, plasma (test code = acth, 33 pg/mL 6-50 plasma) [facility] SouthwestEstradiol (E2) [Mass/volume] in Serum or Vmpiqa5694-51-23 00:00:00 Test Item Value Reference Range Interpretation Comments estradiol (test code = estradiol) 46 pg/mL [facility] SouthwestFollitropin and Lutropin panel [Units/volume] - Serum or Dcslhe1881-60-09 00:00:00 Test Item Value Reference Range Interpretation Comments FSH (test code = FSH) 4.7 mIU/mL LH (test code = LH) 6.2 mIU/mL [facility] SouthwestCortisol [Mass/volume] in Serum or Plasma --AM peak vpaxxphr9094-11-46 00:00:00 Test Item Value Reference Range Interpretation Comments cortisol, A.M. (test code = 13.5 mcg/dL cortisol, A.M.) [facility] PracticeDehydroepiandrosterone sulfate (DHEA-S) [Mass/volume] in Serum or Eqizqo2176-68-85 00:00:00 Test Item Value Reference Range Interpretation Comments DHEA sulfate (test code = DHEA 155 mcg/dL 19-237 sulfate) [facility]Testosterone [Mass/volume] in Serum or Bwuoca3119-10-25 00:00:00 Test Item Value Reference Range Interpretation Comments testosterone, total, MS (test code = 24 NG/dL 2-45 testosterone, total, MS) [facility] SouthwestEstradiol (E2) [Mass/volume] in Serum or Gvkmec4610-53-52 00:00:00 Test Item Value Reference Range Interpretation Comments estradiol (test code = estradiol) 46 pg/mL [facility] SouthwestFollitropin and Lutropin panel [Units/volume] - Serum or Jvuakq9080-99-98 00:00:00 Test Item Value Reference Range Interpretation Comments FSH (test code = FSH) 4.7 mIU/mL LH (test code = LH) 6.2 mIU/mL [facility] SouthwestCortisol [Mass/volume] in Serum or Plasma --AM peak qagcleak2801-30-07 00:00:00 Test Item Value Reference Range Interpretation Comments cortisol, A.M. (test code = 13.5 mcg/dL cortisol, A.M.) [facility] PracticeDehydroepiandrosterone sulfate (DHEA-S) [Mass/volume] in Serum or Xdhnio8073-47-26 00:00:00 Test Item Value Reference Range Interpretation Comments DHEA sulfate (test code = DHEA 155 mcg/dL 19-237 sulfate) [facility] SouthwestTestosterone [Mass/volume] in Serum or Nvvfcs3048-04-01 00:00:00 Test Item Value Reference Range Interpretation Comments testosterone, total, MS (test code = 24 NG/dL 2-45 testosterone, total, MS) [facility] SouthwestFood allergen panel - Nrehy5542-21-30 00:00:00 Test Item Value Reference Range Interpretation [...] code = cow's <0.10 milk (F2) IgE) [facility] SouthwestProlactin bxgrx8593-20-78 13:17:00 Test Item Value Reference Range Interpretation Comments Prolactin (test code = 25.0 ng/mL 4.8-23.3 H 2842-3) SANIYA (test code = SANIYA) Performed at: [address] [place] [id number] Director: Cedrick Arias MD, Phone: [phone] Lab Interpretation (test Abnormal code = 05566-6) [facility] fyyzpwx8570-86-09 13:13:00 Test Item Value Reference Range Interpretation Comments Follicle mIU/mL Adult Female: stimulating Follicular phas e 3.5 hormone (test code - 12.5 Ov ulation = 93242-0) phase 4.7 - 21. 5 Luteal phase 1. 7 - 7.7 Postmenopau irving 25.8 - 134.8 SANIYA (test code = Performed at: 01 SANIYA) - [facility] [address] [id number] Director: Cedrick Arias MD, Phone: [phone] [facility] sumknmj7255-31-26 13:13:00 Test Item Value Reference Range Interpretation Comments Luteinizing mIU/mL Adult Female: hormone (test code Follicula r phase 2.4 = 66680-6) - 12.6 Ovulatio n phase 14.0 - 95 .6 Luteal phase 1. 0 - 11.4 Postmenopa usal 7.7 - 58.5 SANIYA (test code = Performed at: SANIYA) - [facility] [id number] Director: Cedrick Arias MD, Phone: [phone] [facility] HospitalThyroid stimulating hltznam6367-35-39 13:13:00 Test Item Value Reference Range Interpretation Comments TSH (test code See_Comment [Automated m essage] = 59964-1) The system Pinocc[employer] h generated this result transmit jeni reference range : 0.450 - 4.500 uIU/mL. The reference range was not used to interpret this result as normal/abnormal . SANIYA (test code Performed at: 01 - = SANIYA) [facility] [id number] Director: Cedrick Arias MD, Phone: [phone] [facility] HospitalFollicle stimulating aghqzfb0199-16-62 13:13:00 Test Item Value Reference Range Interpretation Comments Follicle mIU/mL Adult Female: stimulating Follicular phas e 3.5 hormone (test code - 12.5 Ov ulation = 39427-1) phase 4.7 - 21. 5 Luteal phase 1. 7 - 7.7 Postmenopau irving 25.8 - 134.8 SANIYA (test code = Performed at: SANIYA) - [address] [id number] Director: Cedrick Arias MD, Phone: [phone] [facility] HospitalLuteinizing dtgpgow1428-96-51 13:13:00 Test Item Value Reference Range Interpretation Comments Luteinizing mIU/mL Adult Female: hormone (test code Follicula r phase 2.4 = 52453-2) - 12.6 Ovulatio n phase 14.0 - 95 .6 Luteal phase 1. 0 - 11.4 Postmenop ausal 7.7 - 58.5 SANIYA (test code = Performed at: SANIYA) - [address] [id number] Director: Cedrick Arias MD, Phone: [phone] [facility] HospitalThyroid stimulating jsnfszc9526-12-43 13:13:00 Test Item Value Reference Range Interpretation Comments TSH (test code See_Comment [Automated m essage] = 50226-1) The system [employer] generated this result transmit jeni reference range : 0.450 - 4.500 uIU/mL. The reference range was not used to interpret this result as normal/abnormal . SANIYA (test code Performed at: - SANIYA) [address] [id number] Director: Cedrick Arias MD, Phone: [phone] [facility] nrubptqn6433-64-95 13:13:00 Test Item Value Reference Range Interpretation Comments WBC (test code = See_Comment [Automated 9490-2) message] The system which generated this result transmitted reference range : 3.4 - 10.8 x10E3/uL. The reference range was not used to interpret this result as normal/abnormal . RBC (test code = See_Comment [Automated 299-8) message] The system which generated this result [...] SANIYA (test code = SANIYA) Performed at: [facility] [id number] Director: Cedrick Arias MD, Phone: [phone] Lab Interpretation Abnormal (test code = 40385-9) [facility] HospitalProlactin [id number] 13:13:00 Test Item Value Reference Range Interpretation Comments Prolactin (test code = 23.8 ng/mL 4.8-23.3 H 2842-3) SANIYA (test code = SANIYA) Performed at: [facility] [id number] Director: Cedrick Arias MD, Phone: [phone] Lab Interpretation (test Abnormal code = 92312-0) [facility] Hospitalrap[facility] A + B and SARS CoV + SARS CoV 2 Ag panel, IA, upper respiratory hbxntlwk9577-59-83 09:33:00 Test Item Value Reference Range Interpretation Comments Influenza A (test code = Presumptive Negative Influenza A) Influenza B (test code = Presumptive Negative Influenza B) SARS-CoV-2 Antigen (test Presumptive Negative code = SARS-CoV-2 Antigen) [facility] A + B and SARS CoV + SARS CoV 2 Ag panel, [place], upper respiratory atocghch7336-12-23 09:33:00 Test Item Value Reference Range Interpretation Comments Influenza A (test code = Presumptive Negative Influenza A) Influenza B (test code = Presumptive Negative Influenza B) SARS-CoV-2 Antigen (test Presumptive Negative code = SARS-CoV-2 Antigen) [facility] virus A + B and SARS CoV + SARS CoV 2 Ag panel, [place], upper respiratory enhaiksb6511-10-32 09:33:00 Test Item Value Reference Range Interpretation Comments Influenza A (test code = Presumptive Negative Influenza A) Influenza B (test code = Presumptive Negative Influenza B) SARS-CoV-2 Antigen (test Presumptive Negative code = SARS-CoV-2 Antigen) [facility]rad influenza virus A + B and SARS CoV + SARS CoV 2 Ag panel, IA, upper respiratory bzzeujsf0560-46-79 09:33:00 Test Item Value Reference Range Interpretation Comments Influenza A (test code = Presumptive Negative Influenza A) Influenza B (test code = Presumptive Negative Influenza B) SARS-CoV-2 Antigen (test Presumptive Negative code = SARS-CoV-2 Antigen) [facility]rad influenza virus A + B and SARS CoV + SARS CoV 2 Ag panel, IA, upper respiratory fzpdwliz2253-57-94 10:26:25 Test Item Value Reference Range Interpretation Comments Influenza A (test code = Presumptive Negative Influenza A) Influenza B (test code = Presumptive Negative Influenza B) SARS-CoV-2 Antigen (test Positive code = SARS-CoV-2 Antigen) [facility] and SARS CoV + SARS CoV 2 Ag panel, IA, upper respiratory zjquvrmr4518-70-54 10:26:25 Test Item Value Reference Range Interpretation Comments Influenza A (test code = Presumptive Negative Influenza A) Influenza B (test code = Presumptive Negative Influenza B) SARS-CoV-2 Antigen (test Positive code = SARS-CoV-2 Antigen) [facility]rad influenza virus A + B and SARS CoV + SARS CoV 2 Ag panel, IA, upper respiratory chnhzfdi8483-46-06 10:26:25 Test Item Value Reference Range Interpretation Comments Influenza A (test code = Presumptive Negative Influenza A) Influenza B (test code = Presumptive Negative Influenza B) SARS-CoV-2 Antigen (test Positive code = SARS-CoV-2 Antigen) [facility] virus A + B and SARS CoV + SARS CoV 2 Ag panel, IA, upper respiratory chcciqua2193-30-75 10:26:25 Test Item Value Reference Range Interpretation Comments Influenza A (test code = Presumptive Negative Influenza A) Influenza B (test code = Presumptive Negative Influenza B) SARS-CoV-2 Antigen (test Positive code = SARS-CoV-2 Antigen) [facility] SouthwestHemoglobin A1c/Hemoglobin.total in Kqguh5369-50-69 00:00:00 Test Item Value Reference Range Interpretation Comments Hemoglobin A1c/Hemoglobin.total in 6.0 % 1.0-5.7 H Blood (test code = 4548-4) average blood glucose (calculation) 126 mg/dL (test code = average blood glucose (calculation)) [facility] SouthwestHemoglobin A1c/Hemoglobin.total in Yutqz9867-91-93 00:00:00 Test Item Value Reference Range Interpretation Comments Hemoglobin A1c/Hemoglobin.total in 6.0 % 1.0-5.7 H Blood (test code = 4548-4) average blood glucose (calculation) 126 mg/dL (test code = average blood glucose (calculation)) [facility] SouthwestHemoglobin A1c/Hemoglobin.total in Tybuc4044-90-47 00:00:00 Test Item Value Reference Range Interpretation Comments Hemoglobin A1c/Hemoglobin.total in 6.0 % 1.0-5.7 H Blood (test code = 4548-4) average blood glucose (calculation) 126 mg/dL (test code = average blood glucose (calculation)) [facility] SouthwestHemoglobin A1c/Hemoglobin.total in Xpjyg8886-38-94 00:00:00 Test Item Value Reference Range Interpretation Comments Hemoglobin A1c/Hemoglobin.total in 6.0 % 1.0-5.7 H Blood (test code = 4548-4) average blood glucose (calculation) 126 mg/dL (test code = average blood glucose (calculation)) [facility] SouthwestUrinalysis macro (dipstick) panel - [id number] 11:35:00 Test Item Value Reference Range Interpretation Comments Color Color (test code = Color yellow Color) Color Appearance (test code = Color clear Appearance) Color Glucose (test code = Color negative Glucose) Color Bilirubin (test code = Color negative Bilirubin) Color Ketones (test code = Color negative Ketones) Color Specific Seneca (test code = 1.015 Color Specific Seneca) Color Blood (test code = Color negative Blood) Color PH (test code = Color PH) 6.0 Color Protein (test code = Color negative Protein) Color Urobilinogen (test code = 0.2 Color Urobilinogen) Color Nitrites (test code = Color negative Nitrites) Color Leukocytes (test code = Color negative Leukocytes) [facility] SouthwestUrinalysis macro (dipstick) panel - [id number] 11:35:00 Test Item Value Reference Range Interpretation Comments Color Color (test code = Color yellow Color) Color Appearance (test code = Color clear Appearance) Color Glucose (test code = Color negative Glucose) Color Bilirubin (test code = Color negative Bilirubin) Color Ketones (test code = Color negative Ketones) Color Specific [place] (test code = 1.015 Color Specific [place]) Color Blood (test code = Color negative Blood) Color PH (test code = Color PH) 6.0 Color Protein (test code = Color negative Protein) Color Urobilinogen (test code = 0.2 Color Urobilinogen) Color Nitrites (test code = Color negative Nitrites) Color Leukocytes (test code = Color negative Leukocytes) [facility] SouthwestUrinalysis macro (dipstick) panel - [id number] 11:35:00 Test Item Value Reference Range Interpretation Comments Color Color (test code = Color yellow Color) Color Appearance (test code = Color clear Appearance) Color Glucose (test code = Color negative Glucose) Color Bilirubin (test code = Color negative Bilirubin) Color Ketones (test code = Color negative Ketones) Color Specific [place] (test code = 1.015 Color Specific [place]) Color Blood (test code = Color negative Blood) Color PH (test code = Color PH) 6.0 Color Protein (test code = Color negative Protein) Color Urobilinogen (test code = 0.2 Color Urobilinogen) Color Nitrites (test code = Color negative Nitrites) Color Leukocytes (test code = Color negative Leukocytes) [facility] SouthwestUrinalysis macro (dipstick) panel - [id number] 11:35:00 Test Item Value Reference Range Interpretation Comments Color Color (test code = Color yellow Color) Color Appearance (test code = Color clear Appearance) Color Glucose (test code = Color negative Glucose) Color Bilirubin (test code = Color negative Bilirubin) Color Ketones (test code = Color negative Ketones) Color Specific [place] (test code = 1.015 Color Specific [place]) Color Blood (test code = Color negative Blood) Color PH (test code = Color PH) 6.0 Color Protein (test code = Color negative Protein) Color Urobilinogen (test code = 0.2 Color Urobilinogen) Color Nitrites (test code = Color negative Nitrites) Color Leukocytes (test code = Color negative Leukocytes) [facility] Differential panel - [id number] 00:00:00 Test Item Value Reference Range Interpretation [...] (test code = baso#) 0.07 x10*3/?L 0.01-0.08 [facility] PracticeComprehensive [facility] 2000 panel - Serum or Plasma 2021-02-25 00:00:00 [...] (test code = anion gap) 8 calc [facility] SouthwestLipid 1995 panel - Serum or [id number] 00:00:00 Test Item Value Reference Range Interpretation [...] Serum or Plasma (test code = 2089-1) [facility] SouthwestThyrotropin [Units/volume] in Serum or Yezica1406-80-03 00:00:00 Test Item Value Reference Range Interpretation Comments TSH (test code = TSH) 1.161 uIU/mL 0.350-4.940 [facility]CBC W Auto Differential panel - [id number] 00:00:00 Test Item Value Reference Range Interpretation [...] (test code = baso#) 0.07 x10*3/?L 0.01-0.08 [facility]Com[facility] 2000 panel - Serum or Plasma 2021-02-25 00:00:00 [...] (test code = anion gap) 8 calc [facility] SouthwestLipid 1995 panel - Serum or [id number] 00:00:00 Test Item Value Reference Range Interpretation [...] Serum or Plasma (test code = 2089-1) [facility] SouthwestThyrotropin [Units/volume] in Serum or Icwjen0638-21-03 00:00:00 Test Item Value Reference Range Interpretation Comments TSH (test code = TSH) 1.161 uIU/mL 0.350-4.940 [facility]CBC W Auto Differential panel - [id number] 00:00:00 Test Item Value Reference Range Interpretation [...] (test code = baso#) 0.07 x10*3/?L 0.01-0.08 [facility]Comprehensive metabolic 2000 panel - Serum or Plasma 2021-02-25 00:00:00 [...] (test code = anion gap) 8 calc [facility] SouthwestLipid 1995 panel - Serum or [id number] 00:00:00 Test Item Value Reference Range Interpretation [...] Serum or Plasma (test code = 2089-1) [facility] SouthwestThyrotropin [Units/volume] in Serum or Ybjmsp2055-60-03 00:00:00 Test Item Value Reference Range Interpretation Comments TSH (test code = TSH) 1.161 uIU/mL 0.350-4.940 [facility] W Auto Differential panel - [id number] 00:00:00 Test Item Value Reference Range Interpretation [...] (test code = baso#) 0.07 x10*3/?L 0.01-0.08 [facility]Comprehensive metabolic 1999 panel - Serum or Plasma [...] (test code = anion gap) 8 calc [facility] SouthwestLipid 1995 panel - Serum or [id number] 00:00:00 Test Item Value Reference Range Interpretation [...] Serum or Plasma (test code = 2089-1) [facility] SouthwestThyrotropin [Units/volume] in Serum or Jylbeo2617-07-72 00:00:00 Test Item Value Reference Range Interpretation Comments TSH (test code = TSH) 1.161 uIU/mL 0.350-4.940 [facility] SouthwestGynecologic Pap Test (Image-guided), Liquid-based Preparation and Human Papillomavirus (HPV) (Aptima®) Detection With Reflex to HPV Genotypes 16 and 18,45 on High-risk Positive Mwaoexmmk3945-27-08 14:11:00 Test Item Value Reference Range Interpretation Comments Diagnosis (test Comment NEGATIVE FOR code = 92290-1) INTRAEPITHEL IAL LESION OR MALIGNANCY. Specimen adequacy Comment Satisfacto ry for (test code = evaluation. 10008-8) Endocervical an d/or squamous metaplasticcell s (endocervical component) are present. Performed by: Comment Kaycee Fernandez, (test code = Cytotechnologis t (ASCP) 40276-9) Comment (test . code = 11365-0) Note: (test code Comment The Pap sme ar is a = 1991302) screening test designed to aid in the d etection ofpremalignant and malignant condi tions of the uterine cer vix. It is not adiagnos tic procedure and s hould not be used as the sole means of detectingcervic al cancer. Both false-positive and false-negative reports do occur. Test methodology Comment This liquid based (test code = ThinPrep(R) pap test 00658-5) was screened wi th theuse of an im age guided system. HPV Aptima (test Negative Negative This nuclei c acid code = 69205-3) amplificatio n test detects fourtee n high-riskHPV ty pes (16,18,31,33,35 ,39,45,5 1,52,56,58,59,6 6,68) withoutdifferen tiation. SANIYA (test code = Performed at: SANIYA) [address] [id number] Director: Cedrick Arias MD, Phone: [phone] rmed at: 02 - [address] [id number] Director: Cedrick Arias MD, Phone: [phone] men Comment: No. of containers..01 ThinPrep Vial [facility] 1999 panel - Serum or [id number] 16:36:00 Test Item Value Reference Range Interpretation [...] (test code = anion gap) 6 calc [facility] SouthwestLipid 1995 panel - Serum or Voyoyl7759-12-18 16:36:00 Test Item Value Reference Range Interpretation [...] Serum or Plasma (test code = 2089-1) [facility] SouthwestThyrotropin [Units/volume] in Serum or Kqziwi0050-77-48 16:36:00 Test Item Value Reference Range Interpretation Comments TSH (test code = TSH) 1.180 uIU/mL 0.350-4.940 [facility] SouthwestXblvbrsv83-Ouzntawuxxoadp D3+25-Hydroxyvitamin D2 [Mass/volume] in Serum or Sbboas7836-85-99 16:36:00 Test Item Value Reference Range Interpretation Comments vitamin D 25OH (test code = 20.7 NG/mL 30.0-96.0 L vitamin D 25OH) [facility]Com[facility] metabolic 1999 panel - Serum or Plasma 2020-03-01 16:36:00 [...] (test code = anion gap) 6 calc [facility] SouthwestLipid 1995 panel - Serum or Ktlhod0352-85-66 16:36:00 Test Item Value Reference Range Interpretation [...] Serum or Plasma (test code = 2089-1) [facility] SouthwestThyrotropin [Units/volume] in Serum or Ftekms5174-30-11 16:36:00 Test Item Value Reference Range Interpretation Comments TSH (test code = TSH) 1.180 uIU/mL 0.350-4.940 [facility] SouthwestHgrhmkwe80-Joldbbgegwwsiz D3+25-Hydroxyvitamin D2 [Mass/volume] in Serum or Zisrcn6589-35-81 16:36:00 Test Item Value Reference Range Interpretation Comments vitamin D 25OH (test code = 20.7 NG/mL 30.0-96.0 L vitamin D 25OH) [facility] SouthwestHemoglobin A1c/Hemoglobin.total in Vihqz6709-80-55 13:03:00 Test Item Value Reference Range Interpretation Comments Hemoglobin A1c/Hemoglobin.total in 6.0 % 1.0-5.7 H Blood (test code = 4548-4) average blood glucose (calculated) 126 mg/dL (test code = average blood glucose (calculated)) [facility] SouthwestHemoglobin A1c/Hemoglobin.total in Ufewp8850-78-69 13:03:00 Test Item Value Reference Range Interpretation Comments Hemoglobin A1c/Hemoglobin.total in 6.0 % 1.0-5.7 H Blood (test code = 4548-4) average blood glucose (calculated) 126 mg/dL (test code = average blood glucose (calculated)) [facility]CB W Auto Differential panel - [id number] 12:43:00 Test Item Value Reference Range Interpretation [...] (test code = baso#) 0.04 x10*3/?L 0.01-0.[address] [facility] Auto Differential panel - [id number] 12:43:00 Test Item Value Reference Range Interpretation [...] (test code = baso#) 0.04 x10*3/?L 0.01-0.08 [facility] wrljy2200-83-68 12:43:00Rate & RhythmQrsPR IntervalQRS DurationQT IntervalRapides [facility] iswbc2217-01-49 12:43:00Rate & RhythmQrsPR IntervalQRS DurationQT [facility]valR[facility]ides [facility] kisfk9822-19-77 12:43:00Rate & RhythmQrsPR IntervalQRS DurationQT IntervalL[facility] SouthwestUrinalysis macro (dipstick) panel - [id number] 11:21:00 Test Item Value Reference Range Interpretation Comments Color Color (test code = Color yellow Color) Color Appearance (test code = Color clear Appearance) Color Glucose (test code = Color negative Glucose) Color Bilirubin (test code = Color negative Bilirubin) Color Ketones (test code = Color negative Ketones) Color Specific [place] (test code = 1.030 Color Specific [place]) Color Blood (test code = Color negative Blood) Color PH (test code = Color PH) 6.0 Color Protein (test code = Color negative Protein) Color Urobilinogen (test code = 0.2 Color Urobilinogen) Color Nitrites (test code = Color negative Nitrites) Color Leukocytes (test code = Color negative Leukocytes) [facility] SouthwestUrinalysholy [facility] (dipstick) panel - [id number] 11:21:00 Test Item Value Reference Range Interpretation Comments Color Color (test code = Color yellow Color) Color Appearance (test code = Color clear Appearance) Color Glucose (test code = Color negative Glucose) Color Bilirubin (test code = Color negative Bilirubin) Color Ketones (test code = Color negative Ketones) Color Specific [place] (test code = 1.030 Color Specific [place]) Color Blood (test code = Color negative Blood) Color PH (test code = Color PH) 6.0 Color Protein (test code = Color negative Protein) Color Urobilinogen (test code = 0.2 Color Urobilinogen) Color Nitrites (test code = Color negative Nitrites) Color Leukocytes (test code = Color negative Leukocytes) [facility] (dipstick) panel - [id number] 11:21:00 Test Item Value Reference Range Interpretation Comments Color Color (test code = Color yellow Color) Color Appearance (test code = Color clear Appearance) Color Glucose (test code = Color negative Glucose) Color Bilirubin (test code = Color negative Bilirubin) Color Ketones (test code = Color negative Ketones) Color Specific Seneca (test code = 1.030 Color Specific Seneca) Color Blood (test code = Color negative Blood) Color PH (test code = Color PH) 6.0 Color Protein (test code = Color negative Protein) Color Urobilinogen (test code = 0.2 Color Urobilinogen) Color Nitrites (test code = Color negative Nitrites) Color Leukocytes (test code = Color negative Leukocytes) [facility] (dipstick) panel - [id number] 11:21:00 Test Item Value Reference Range Interpretation Comments Color Color (test code = Color yellow Color) Color Appearance (test code = Color clear Appearance) Color Glucose (test code = Color negative Glucose) Color Bilirubin (test code = Color negative Bilirubin) Color Ketones (test code = Color negative Ketones) Color Specific [place] (test code = 1.030 Color Specific [place]) Color Blood (test code = Color negative Blood) Color PH (test code = Color PH) 6.0 Color Protein (test code = Color negative Protein) Color Urobilinogen (test code = 0.2 Color Urobilinogen) Color Nitrites (test code = Color negative Nitrites) Color Leukocytes (test code = Color negative Leukocytes) [facility] W Auto Differential panel - [id number] 01:12:00 Test Item Value Reference Range Interpretation [...] fL 7.5-12.5 absolute neutrophils (test 5955 cells/uL [id number] code = absolute neutrophils) absolute lymphocytes (test [...] basophils (test code = 0.4 % basophils) [facility] - Serum [...] = % 3.3 % 11.0-50.0 L saturation) [facility]yan[facility]obal[facility] [Interpretation] in Serum or Blood 2019-07-18 17:59:00 Test Item Value Reference Range Interpretation Comments folate (test code = folate) >20.0 vitamin B12 (test code = vitamin 352 pg/mL 213-816 B12) [facility] Differential panel - [id number] 16:56:00 Test Item Value Reference Range Interpretation [...] (test code = baso#) 0.05 x10*3/?L 0.01-0.08 [facility] - Serum or Plasma [...] gap (test code = anion gap) 9 calc [facility]
--- NOTE | 2022-12-26 23:58 | ER ---
Nurse's Notes [facility] Name: Alannah Christine Age: 32 yrs Sex: Female : 1990 Arrival Date: 12/26/2022 Time: 23:43 Bed IW1 Private MD: Diagnosis: Streptococcal pharyngitis Presentation: 12/26 23:51 Chief complaint: Patient states: sore throat, body aches and fever onset Sunday and got cm10 worse today. Coronavirus screen: Vaccine status: Patient reports receiving the 2nd dose of the covid vaccine. Client denies travel out of the [place] in the last 14 days. Ebola Screen: Patient denies travel to an Ebola-affected area in the 21 days before illness onset. No symptoms or risks identified at this time. Initial Sepsis Screen: Does the patient meet any 2 criteria? No. Patient's initial sepsis screen is negative. Does the patient have a suspected source of infection? No. Patient's initial sepsis screen is negative. Risk Assessment: Do you want to hurt yourself or someone else? Patient reports no desire to harm self or others. Onset of symptoms was December 26, 2022. 23:51 Method Of Arrival: Ambulatory cm10 23:51 Acuity: TIMOTHY 4 cm10 Triage Assessment: 23:54 General: Appears in no apparent distress. comfortable, Behavior is calm, cooperative. cm10 Pain: Complains of pain in throat Pain currently is 8 out of 10 on a pain scale. EENT: Throat is reddened has patchy exudate has enlarged tonsils. Neuro: No deficits noted. Level of Consciousness is awake, alert, obeys commands, Oriented to person, place, time, situation. Cardiovascular: No deficits noted. Patient's skin is warm and dry. Respiratory: No deficits noted. Airway is patent Respiratory effort is even, unlabored, Respiratory pattern is regular, symmetrical. GI: No deficits noted. Abdomen is obese, Reports nausea. : No deficits noted. Derm: No deficits noted. No signs and/or symptoms reported regarding the dermatologic system. Skin is intact, Skin is pink, warm \T\ dry. Musculoskeletal: No deficits noted. No signs and/or symptoms reported regarding the musculoskeletal system. Range of motion: intact in all extremities. [employer]ES: 12/27 00:04 LMP N/A - Hysterectomy, Not cm10 Historical: - Allergies: 12/26 23:54 Latex; cm10 - PMHx: 23:54 Anemia; Hypertensive disorder; cm10 - PSHx: 23:54 Total abdominal hysterectomy; cm10 - Immunization history:: Adult Immunizations unknown. - Social history:: Smoking status: Patient denies any tobacco usage or history of. Screenin:55 [facility] ED Fall Risk Assessment (Adult) History of falling in the last 3 months, cm10 including since admission Yes- single mechanical fall (1 pt) Confusion or Disorientation No (0 pts) Intoxicated or Sedated No (0 pts) Impaired Gait No (0 pts) Mobility Assist Device Used No (0 pt) Altered Elimination No (0 pt) Score/Fall Risk Level 0 - 2 = Low Risk Oriented to surroundings, Maintained a safe environment, Hourly rounding (assess needs \T\ fall precautionary measures) done. Abuse screen: Denies threats or abuse. Denies injuries from another. Nutritional screening: No deficits noted. Tuberculosis screening: No symptoms or risk factors identified. Vital Signs: 23:51 BP 156 / 93; Pulse 113; Resp 18 S; Temp 100.6(O); Pulse Ox 97% on R/A; Weight 115.21 kg cm10 (R); Height 5 ft. 5 in. (R); Pain 8/10; 23:51 Body Mass Index 42.27 (115.21 kg, 165.1 cm) cm10 23:51 Pain Scale: Adult cm10 ED Course: 23:45 Patient arrived in ED. mr 23:47 [facility]C [facility]. kb 23:47 Gigi Boyle MD is Attending Physician. kb 23:54 Triage completed. cm10 23:55 Arm band placed on Patient placed in waiting room. cm10 23:55 Patient has correct armband on for positive identification. Provided Education on: ER cm10 process and procedures. . 23:56 No provider procedures requiring assistance completed. Patient did not have IV access cm10 during this emergency room visit. Administered Medications: 12/27 00:03 Drug: Amoxicillin-Clavulanate PO 875 mg PO once Route: PO; cm10 00:04 Follow up: Response: No adverse reaction cm10 00:03 Drug: Ibuprofen PO 800 mg PO once Route: PO; cm10 00:04 Follow up: Response: No adverse reaction cm10 Medication: 12/26 23:55 VIS not applicable for this client. cm10 Outcome: 23:58 Discharge ordered by MD. randall 12/27 00:04 Discharged to home ambulatory, cm10 Condition: good Discharge instructions given to patient, Instructed on discharge instructions, follow up and referral plans. medication usage, Demonstrated understanding of instructions, follow-up care, medications, Prescriptions given X 1, 00:04 Patient left the ED. cm10 Signatures: Tova Gonzalez, ANISH-Lucy OCONNELL-Mera Kohli, Slick Reg Neema Junior, RN RN cm10
--- NOTE | 2022-12-26 23:58 | EDPHYS ---
Physician Documentation [facility] Name: Alannah Christine Age: 32 yrs Sex: Female : 1990 Arrival Date: 12/26/2022 Time: 23:43 Bed IW1 Private MD: ED Physician Gigi Boyle HPI: 12/26 23:57 This 32 yrs old Female presents to ER via Ambulatory with complaints of Flu kb Symptoms. 23:57 The patient presents with sore throat. The patient describes throat pain as constant. kb Onset: The symptoms/episode began/occurred 3 day(s) ago. Severity of symptoms: At their worst the symptoms were moderate, in the emergency department the symptoms are unchanged. Modifying factors: The symptoms are alleviated by nothing, the symptoms are aggravated by swallowing. Associated signs and symptoms: Pertinent positives: chills, cough, fever, flu-like symptoms, myalgias, rhinorrhea, Sore throat. The patient has not experienced similar symptoms in the past. The patient has not recently seen a physician. 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 - Social history:: Smoking status: Patient denies any tobacco usage or history of. ROS: 23:55 Abdomen/GI: Negative for abdominal pain, nausea, vomiting, diarrhea, and constipation, kb 23:55 Constitutional: Positive for body aches, chills, fatigue, fever, malaise, 23:55 ENT: Positive for sore throat, 23:55 Respiratory: Positive for cough, 23:55 All other systems are negative, Exam: 23:55 Constitutional: This is a well developed, well nourished patient who is awake, alert, kb and in no acute distress. Head/Face: Normocephalic, atraumatic. Cardiovascular: Regular rate Respiratory: Respirations even and unlabored. No increased work of breathing. Talking in full sentences Abdomen/GI: Soft, non-tender. No distention Skin: Warm, dry with normal turgor. Normal color. MS/ Extremity: Pulses equal, no cyanosis. Neurovascular intact. Full, normal range of motion. Neuro: Awake and alert, GCS 15, oriented to person, place, time, and situation. Moves all extremities. Normal gait. 23:55 ENT: Posterior pharynx: Airway: normal, no evidence of obstruction, Tonsils: bilaterally enlarged, with erythema, with exudate, swelling, that is moderate, erythema, that is moderate, exudate, that is moderate, Vital Signs: 23:51 BP 156 / 93; Pulse 113; Resp 18 S; Temp 100.6(O); Pulse Ox 97% on R/A; Weight 115.21 kg cm10 (R); Height 5 ft. 5 in. (R); Pain 8/10; 23:51 Body Mass Index 42.27 (115.21 kg, 165.1 cm) cm10 23:51 Pain Scale: Adult cm10 MDM: 23:47 Patient medically screened. kb 23:56 Differential diagnosis: strep, tonsillitis, flu, covid, uri. Data reviewed: vital kb signs, nurses notes. Test considered but Not performed: Labs: strep, flu, covid tests considered but would not change course of treatment. Counseling: I had a detailed discussion with the patient and/or guardian regarding the historical points, exam findings, and any diagnostic results supporting the discharge/admit diagnosis, the need for outpatient follow up, a family practitioner, to return to the emergency department if symptoms worsen or persist or if there are any questions or concerns that arise at home. Administered Medications: 12/27 00:03 Drug: Amoxicillin-Clavulanate PO 875 mg PO once Route: PO; cm10 00:04 Follow up: Response: No adverse reaction cm10 00:03 Drug: Ibuprofen PO 800 mg PO once Route: PO; cm10 00:04 Follow up: Response: No adverse reaction cm10 Disposition Summary: 12/26/22 23:58 Discharge Ordered Notes: Location: Home kb Condition: Stable kb Diagnosis - Streptococcal pharyngitis kb Followup: kb - With: Emergency Department - When: As needed - Reason: Worsening of condition Followup: kb - With: Private Physician - When: 2 - 3 days - Reason: Recheck today's complaints, Continuance of care, Re-evaluation by your physician Discharge Instructions: - Discharge Summary Sheet kb - Strep Throat, Adult, [id number] kb Forms: - Medication Reconciliation Form kb - Thank You Letter kb - Antibiotic Education kb - Prescription Opioid Use kb - Patient Portal Instructions kb - Leadership Thank You Letter kb - Work release form ll1 - Family Work Release ll1 Prescriptions: - Augmentin 875-125 mg Oral Tablet - take 1 tablet ORAL route every 12 hours for 10 days; 20 tablet; Refills: 0, kb Product Selection Permitted Signatures: Tova Gonzalez FNP-C FNP-Ckb Martinez, Clarissa, RN RN cm10
[2022-12-27] MEDS ORDERED: AMOX/K CLAV 875 MG TAB ONE (00:10)
[2022-12-27] MEDS ORDERED: IBUPROFEN 400 MG TAB ONE (00:11)
[2022-12-27 01:34] VITALS: BP 156/93; TEMP 100.6; O2SAT 97
== END 2022-12-27 00:04 | disposition home or self-care (01) ==
LOC: ER 23:43
DX: J02.0 Streptococcal pharyngitis (principal); Z91.040 Latex allergy status
CPT/HCPCS: 99283